=== PATIENT | female | born 1985 | race Caucasian/White ===

== ENCOUNTER 2017-11-14 02:08 | Emergency (ER) | payer SELFPAY ==
[2017-11-14] MEDS ORDERED: ONDANSETRON 4 MG/2 ML VIAL ONE ×2 (02:30→03:07)
[2017-11-14] MEDS ORDERED: NA CHLORIDE 0.9% 1,000 ML ONE (03:06)
[2017-11-14] MEDS ORDERED: MORPHINE 4 MG/ML SYR ONE (03:14)
[2017-11-14 03:36] LABS: Absolute Lymphocytes (CBC) 2.4 K/uL (0.7-4.9); Absolute Monocytes 1.1 K/uL (0.1-1.3); Absolute Neutrophil 16.9 K/uL (1.8-8.0); Basophils % 0.4 % (0-1.3); Eosinophils % 1.4 % (0-4.4); Hematocrit 36.2 % (36.0-45.0); Lymphocytes % 11.8 % (15.3-44.8); MCH 20.4 pg (27.0-35.0); MPV 8.3 fL (7.6-11.3); Monocytes % 5.3 % (3.3-12.3); RBC Red Blood Cell Count 5.65 M/uL (3.86-4.86)
[2017-11-14 03:46] LABS: Albumin 4.5 g/dL (3.4-5.0); Bilirubin Total 0.4 mg/dL (0.2-1.0); Protein, Total 7.9 g/dL (6.4-8.2)
[2017-11-14 03:54] LABS: Urine Blood NEGATIVE (NEG); Urine Glucose NEGATIVE (NEG); Urine Protein TRACE (NEG); Urine Specific Gravity 1.025 (1.005-1.030)
[2017-11-14] MEDS ORDERED: PROMETHAZINE 25 MG/ML VIAL ONE (04:21)
[2017-11-14 05:20] LABS: Blood Morphology Comment NOTED (NOT SEEN); Hypochromasia 2+; Platelet Estimate ADEQ
--- NOTE | 2017-11-14 05:38 | ER ---
Nurse's Notes [facility] Name: Mari Chicas Age: 32 yrs Sex: Female : 1985 Arrival Date: 11/14/2017 Time: 02:09 Bed 8 Private MD: Diagnosis: Nausea with vomiting, unspecified Presentation: 11/14 02:31 Presenting complaint: Patient states: Nausea and vomiting started about 2 hours ago tl2 with lower back pain that comes in waves. Transition of care: patient was not received from another setting of care. Onset of symptoms was November 14, 2017 at 00:00. Risk Assessment: Do you want to hurt yourself or someone else? Patient reports no desire to harm self or others. Initial Sepsis Screen: Does the patient meet any 2 criteria? No. Patient's initial sepsis screen is negative. Does the patient have a suspected source of infection? No. Patient's initial sepsis screen is negative. Care prior to arrival: None. 02:31 Method Of Arrival: Ambulatory tl2 02:31 Acuity: FILI 3 tl2 Triage Assessment: 02:33 General: Appears in no apparent distress. uncomfortable, Behavior is calm, cooperative, tl2 appropriate for age. Pain: Complains of pain in left low back and right low back. Neuro: Level of Consciousness is awake, alert, obeys commands, Oriented to person, place, time, situation. Cardiovascular: Denies chest pain. Respiratory: Airway is patent Respiratory effort is even, unlabored, Respiratory pattern is regular, symmetrical. GI: Abdomen is flat, non-distended, Abd is soft and non tender Reports nausea, vomiting. : Denies burning with urination. Derm: Skin is pink, warm \T\ dry. Historical: - Allergies: 02:33 Codeine; tl2 - Home Meds: 02:33 None [Active]; tl2 - PMHx: 02:33 None; tl2 - Immunization history:: Adult Immunizations up to date. - Social history:: Smoking status: Patient uses tobacco products, smokes one-half pack cigarettes per day. - Ebola Screening: : No symptoms or risks identified at this time. Screenin:34 Abuse screen: Denies threats or abuse. Nutritional screening: No deficits noted. tl2 Tuberculosis screening: No symptoms or risk factors identified. Fall Risk None identified. Assessment: 02:35 General: see triage assessment. tl2 03:16 Reassessment: Patient appears in no apparent distress at this time. Patient and/or tl2 family updated on plan of care and expected duration. Pain level reassessed. Patient is alert, oriented x 3, equal unlabored respirations, skin warm/dry/pink. Pt resting, awaiting CT. 04:15 Reassessment: Patient appears in no apparent distress at this time. Patient and/or tl2 family updated on plan of care and expected duration. Pain level reassessed. Patient is alert, oriented x 3, equal unlabored respirations, skin warm/dry/pink. 04:17 Reassessment: Pt continues to have nausea. Discussed with Dr Boss. Pt to get fc Phenergan 25 mg ivp. 04:17 GI: Pt is actively vomiting MD notified, new orders see JUL. tl2 04:58 Reassessment: Patient appears in no apparent distress at this time. Patient and/or tl2 family updated on plan of care and expected duration. Pain level reassessed. Patient is alert, oriented x 3, equal unlabored respirations, skin warm/dry/pink. Patient states feeling better. 05:53 Reassessment: Patient appears in no apparent distress at this time. Patient and/or tl2 family updated on plan of care and expected duration. Pain level reassessed. Patient is alert, oriented x 3, equal unlabored respirations, skin warm/dry/pink. Pt verbalized understanding of discharge instructions, need for follow up and prescription usage Patient states feeling better. Vital Signs: 02:33 BP 123 / 80; Pulse 104; Resp 18; Temp 98.3(O); Pulse Ox 98% on R/A; Weight 72.57 kg; tl2 Height 5 ft. 6 in. (167.64 cm); Pain 7/10; 03:16 BP 119 / 58; Pulse 72; Resp 18; Pulse Ox 99% ; tl2 04:15 Pulse 88; Resp 18; Pulse Ox 100% on R/A; tl2 04:58 BP 117 / 73; Pulse 60; Resp 18; Pulse Ox 99% on R/A; tl2 05:53 BP 121 / 73; Pulse 64; Resp 20; Pulse Ox 99% on R/A; tl2 02:33 Body Mass Index 25.82 (72.57 kg, 167.64 cm) tl2 ED Course: 02:09 Patient arrived in ED. ds1 02:31 Tracy Menjivar, JESSIE is Primary Nurse. tl2 02:31 Initial lab(s) drawn, by me. Inserted saline lock: 20 gauge in left antecubital area, aa1 using aseptic technique. Blood collected. 02:32 Triage completed. tl2 02:33 Arm band placed on right wrist. tl2 02:34 Patient has correct armband on for positive identification. Bed in low position. Call tl2 light in reach. Side rails up X 1. 02:42 Jayden Boss MD is Attending Physician. ps1 03:[address] via wheelchair. kw1 03:26 CT completed. Patient tolerated procedure well. Patient moved back from CT. kw1 03:30 CT Abd/Pelvis - Without Cont In Process Unspecified. EDMS 05:53 No provider procedures requiring assistance completed. IV discontinued, intact, tl2 bleeding controlled, No redness/swelling at site. Pressure dressing applied. Administered Medications: 02:35 Drug: Zofran 4 mg Route: IVP; Site: left antecubital; tl2 03:00 Follow up: Response: No adverse reaction; Nausea is decreased tl2 03:15 Drug: NS 0.9% 1000 ml Route: IV; Rate: 1 bolus; Site: left antecubital; tl2 05:54 Follow up: IV Status: Completed infusion tl2 03:16 Drug: Zofran 4 mg Route: IVP; Site: left antecubital; tl2 03:30 Follow up: Response: No adverse reaction; Nausea is decreased tl2 03:16 Drug: morphine 4 mg Route: IVP; Site: left antecubital; tl2 03:30 Follow up: Response: No adverse reaction; Pain is decreased tl2 04:22 Drug: Phenergan 25 mg Route: IVP; Site: left antecubital; tl2 05:54 Follow up: Response: No adverse reaction; Nausea is decreased tl2 Outcome: 05:38 Discharge ordered by . ps1 05:53 Discharged to home ambulatory. tl2 05:53 Condition: stable 05:53 Discharge instructions given to patient, Instructed on discharge instructions, follow up and referral plans. medication usage, Demonstrated understanding of instructions, follow-up care, medications, Prescriptions given X 1. 05:54 Patient left the ED. tl2 14:53 Instructed on radiologist reports pyelonephritis on CT scan, I attempted to call iw patient to call in prescription for antibiotics, pt did not answer, left voice mail with call back number Signatures: Dispatcher [employer] Ratna Alves RN RN aa1 Sadie Downing RN RN Margaret King ds1 Hafsa Figueroa RN RN Tracy Menjivar RN RN tl2 Jayden Boss MD MD [facility] Leticia Pfeiffer
--- NOTE | 2017-11-14 05:38 | EDPHYS ---
Physician Documentation [facility] Name: Mari Chicas Age: 32 yrs Sex: Female : 1985 Arrival Date: 11/14/2017 Time: 02:09 Bed 8 Private MD: ED Physician Jayden Boss HPI: 11/14 05:29 This 32 yrs old Female presents to ER via Ambulatory with complaints of ps1 Vomiting, Back Pain. 05:29 The patient presents to the emergency department with nausea, vomiting, that is ps1 continuous. Onset: The symptoms/episode began/occurred yesterday. Possible causes: sick contacts. Severity of symptoms: in the emergency department the symptoms are unchanged. patient complains of bilateral flank pain. . Historical: - Allergies: 02:33 Codeine; tl2 - Home Meds: 02:33 None [Active]; tl2 - PMHx: 02:33 None; tl2 - Immunization history:: Adult Immunizations up to date. - Social history:: Smoking status: Patient uses tobacco products, smokes one-half pack cigarettes per day. - Ebola Screening: : No symptoms or risks identified at this time. ROS: 05:29 Constitutional: Negative for fever, chills, and weight loss, Eyes: Negative for injury, ps1 pain, redness, and discharge, Cardiovascular: Negative for chest pain, palpitations, and edema, Respiratory: Negative for shortness of breath, cough, wheezing, and pleuritic chest pain. 05:29 MS/Extremity: Negative for injury and deformity, Skin: Negative for injury, rash, and discoloration, Neuro: Negative for headache, weakness, numbness, tingling, and seizure. 05:29 Abdomen/GI: Positive for abdominal pain, nausea and vomiting. Exam: 05:29 Constitutional: This is a well developed, well nourished patient who is awake, alert, ps1 and in no acute distress. Head/Face: Normocephalic, atraumatic. Eyes: Pupils equal round and reactive to light, extra-ocular motions intact. Lids and lashes normal. Conjunctiva and sclera are non-icteric and not injected. Chest/axilla: Normal chest wall appearance and motion. Nontender with no deformity. No lesions are appreciated. Respiratory: Lungs have equal breath sounds bilaterally, clear to auscultation and percussion. No rales, rhonchi or wheezes noted. No increased work of breathing, no retractions or nasal flaring. Abdomen/GI: Soft, non-tender, with normal bowel sounds. No distension or tympany. No guarding or rebound. No evidence of tenderness throughout. 05:29 Skin: Warm, dry with normal turgor. Normal color with no rashes, no lesions, and no evidence of cellulitis. MS/ Extremity: Pulses equal, no cyanosis. Neurovascular intact. Full, normal range of motion. Neuro: Awake and alert, GCS 15, oriented to person, place, time, and situation. Cranial nerves II-XII grossly intact. Sensory grossly intact. 05:29 Cardiovascular: Rate: tachycardic, Rhythm: regular. Vital Signs: 02:33 BP 123 / 80; Pulse 104; Resp 18; Temp 98.3(O); Pulse Ox 98% on R/A; Weight 72.57 kg; tl2 Height 5 ft. 6 in. (167.64 cm); Pain 7/10; 03:16 BP 119 / 58; Pulse 72; Resp 18; Pulse Ox 99% ; tl2 04:15 Pulse 88; Resp 18; Pulse Ox 100% on R/A; tl2 04:58 BP 117 / 73; Pulse 60; Resp 18; Pulse Ox 99% on R/A; tl2 05:53 BP 121 / 73; Pulse 64; Resp 20; Pulse Ox 99% on R/A; tl2 02:33 Body Mass Index 25.82 (72.57 kg, 167.64 cm) tl2 MDM: 03:05 Patient medically screened. ps1 05:29 Data reviewed: vital signs, nurses notes. Special discussion: Based on the patient's ps1 Hx, exam, and Dx evaluation, there is no indication for emergent surgery or inpatient Tx. It is understood by the patient/guardian that if the Sx's persist or worsen they need to return immediately for re-evaluation. ED course: patient feels much better with medications. Has a leukocytosis which may be demargination. CT negative for appy or stone. Unknown etiology but possible acute gastroenteritis. Patient request to go home. Will dc with antiemetics. . 11/14 03:02 Order name: CBC with Diff; Complete Time: 05:41 ps1 11/14 03:02 Order name: CMP; Complete Time: 04:43 ps1 11/14 03:02 Order name: CT Abd/Pelvis - Without Cont; Complete Time: 14:33 ps1 11/14 03:16 Order name: Urine Dipstick--Ancillary (enter results); Complete Time: 04:43 rg2 11/14 03:16 Order name: Urine --Ancillary (enter results); Complete Time: 04:43 rg2 11/14 03:49 Order name: Manual Differential; Complete Time: 05:41 EDMS 11/14 03:02 Order name: Urine Dipstick-Ancillary (obtain specimen); Complete Time: 03:16 ps1 11/14 03:02 Order name: Urine Test (obtain specimen); Complete Time: 03:16 ps1 Administered Medications: 02:35 Drug: Zofran 4 mg Route: IVP; Site: left antecubital; tl2 03:00 Follow up: Response: No adverse reaction; Nausea is decreased tl2 03:15 Drug: NS 0.9% 1000 ml Route: IV; Rate: 1 bolus; Site: left antecubital; tl2 05:54 Follow up: IV Status: Completed infusion tl2 03:16 Drug: Zofran 4 mg Route: IVP; Site: left antecubital; tl2 03:30 Follow up: Response: No adverse reaction; Nausea is decreased tl2 03:16 Drug: morphine 4 mg Route: IVP; Site: left antecubital; tl2 03:30 Follow up: Response: No adverse reaction; Pain is decreased tl2 04:22 Drug: Phenergan 25 mg Route: IVP; Site: left antecubital; tl2 05:54 Follow up: Response: No adverse reaction; Nausea is decreased tl2 Disposition: 11/14/17 05:38 Discharged to Home. Impression: Nausea with vomiting, unspecified. - Condition is Stable. - Discharge Instructions: Nausea and Vomiting. - Prescriptions for promethazine 25 mg Oral Tablet - take 1 tablet by ORAL route every 6 hours As needed; 20 tablet. - Medication Reconciliation Form, Thank You Letter, Antibiotic Education, Prescription Opioid Use form. - Follow up: Private Physician; When: As needed; Reason: Recheck today's complaints, Continuance of care, Re-evaluation by your physician. Follow up: Emergency Department; When: As needed; Reason: Worsening of condition. - Problem is new. - Symptoms have improved. Signatures: Dispatcher [employer] EDMS Keri Adkins, ADULT BASIC EDUCATION INSTRUCTOR-C ADULT BASIC EDUCATION INSTRUCTOR-Csnw Sadie Downing RN RN fc Tracy Menjivar RN RN tl2 Jayden Boss MD MD ps1 Corrections: (The following items were deleted from the chart) 05:54 05:38 11/14/2017 05:38 Discharged to Home. Impression: Nausea with vomiting, tl2 unspecified. Condition is Stable. Forms are Medication Reconciliation Form, Thank You Letter, Antibiotic Education, Prescription Opioid Use. Follow up: Private Physician; When: As needed; Reason: Recheck today's complaints, Continuance of care, Re-evaluation by your physician. Follow up: Emergency Department; When: As needed; Reason: Worsening of condition. Problem is new. Symptoms have improved. ps1
[2017-11-14 08:43] VITALS: TEMP 98.3
[2017-11-14 08:46] VITALS: O2SAT 99
[2017-11-14 08:47] VITALS: BP 121/73
--- NOTE | 2017-11-14 09:55 | RAD REPORT ---
EXAM DESCRIPTION: CT - Abdomen Pelvis Wo Contrast - 11/14/2017 7:06 am CLINICAL HISTORY: Abdominal and flank pain, nausea and vomiting A preliminary written report was provided at the time of the study, and the report was reviewed prio r to final dictation. COMPARISON: CT study June 2014 TECHNIQUE: Axial [address] imaging of the abdomen and pelvis was performed without IV contrast. No IV contrast was given because of allergy, abnormal renal function, patient refusal or physician re quest. Oral contrast was given. All CT scans are performed using dose optimization technique as appropriate and may include automated exposure control or mA/KV adjustment according to patient size. FINDINGS: No suspicious findings in the lung bases. The liver, spleen and pancreas show no suspicious findings on non-contrast imaging. Gallbladder and b iliary tree are also without suspicious finding. Gallstones can be occult. No hydronephrosis. No obstructing or nonobstructing calculi. No significant adrenal finding. Isodens e renal masses and pyelonephritis cannot be excluded in the absence of IV contrast. There is some sub tle edema appearance to the right kidney. Contracted urinary bladder shows no suspicious finding. Sandra brian and ovaries within normal limits for patient age. No dilated bowel loops or bowel wall thickening. No free air, free fluid or inflammatory stranding. N o mass or bulky lymphadenopathy. A very small umbilical hernia is present stable from prior imaging. No mass or bulky lymphadenopathy. No suspicious bony findings. IMPRESSION: Non-contrast enhanced CT abdomen and pelvis imaging show no significant or suspicious fi nding. Subtle edema appearance to the right kidney. Correlation is needed with any clinical or laboratory fi ndings for right-sided pyelonephritis. Full assessment is limited is the absence of IV contrast.
== END 2017-11-14 05:54 | disposition home or self-care (01) ==
LOC: ER 02:08
DX: R11.2 Nausea with vomiting, unspecified (principal); F17.210 Nicotine dependence, cigarettes, uncomplicated; Z88.5 Allergy status to narcotic agent
CPT/HCPCS: 36415; 74176; 80053; 81003; 81025; 85025; 96361; 96374; 96375; 99284; J2405; J2550; J7030

== ENCOUNTER 2018-02-02 20:54 | Emergency (ER) | payer SELFPAY ==
[2018-02-02] MEDS ORDERED: AMOX/K CLAV 875 MG TAB ONE (21:29)
--- NOTE | 2018-02-02 21:57 | ER ---
Nurse's Notes [facility] Name: Mari Chicas Age: 32 yrs Sex: Female : 1985 Arrival Date: 02/02/2018 Time: 20:58 Bed 26 Private MD: Diagnosis: Periapical abscess without sinus Presentation: 02/02 21:14 Presenting complaint: Patient states: right Jaw pain. Transition of care: patient was tl3 not received from another setting of care. Onset of symptoms was February 02, 2018. Risk Assessment: Do you want to hurt yourself or someone else? Patient reports no desire to harm self or others. Initial Sepsis Screen: Does the patient meet any 2 criteria? No. Patient's initial sepsis screen is negative. Does the patient have a suspected source of infection? No. Patient's initial sepsis screen is negative. Care prior to arrival: None. 21:14 Method Of Arrival: Ambulatory tl3 21:14 Acuity: FILI 4 tl3 Triage Assessment: 21:15 General: Appears distressed, uncomfortable, slender, well groomed, well developed, well tl3 nourished, Behavior is calm, cooperative, appropriate for age. Pain: Complains of pain in lower right second molar (#31) and lower right first molar (#30) and lower right second bicuspid (#29). EENT: No signs and/or symptoms were reported regarding the EENT system. Neuro: Level of Consciousness is awake, alert, obeys commands, Oriented to person, place, time, situation, Appropriate for age. Cardiovascular: Patient's skin is warm and dry. Respiratory: Airway is patent Respiratory effort is even, unlabored, Respiratory pattern is regular, symmetrical. GI: No signs and/or symptoms were reported involving the gastrointestinal system. : No signs and/or symptoms were reported regarding the genitourinary system. Derm: No signs and/or symptoms reported regarding the dermatologic system. Musculoskeletal: No signs and/or symptoms reported regarding the musculoskeletal system. 21:21 EENT: Reports pain since earlier today. 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 - Social history:: Smoking status: unknown. - Ebola Screening: : No symptoms or risks identified at this time. Screenin:20 Abuse screen: Denies threats or abuse. Nutritional screening: No deficits noted. tl3 Tuberculosis screening: No symptoms or risk factors identified. Fall Risk None identified. Assessment: 21:20 Reassessment: No changes from previously documented assessment. tl3 Vital Signs: 21:15 BP 111 / 66; Pulse 91; Resp 16; Pulse Ox 98% ; tl3 ED Course: 20:58 Patient arrived in ED. es 21:09 Jayne Taveras FNP-C is [facility]. kb 21:09 Edilberto Huston MD is Attending Physician. kb 21:10 Isiah Browne, RN is Primary Nurse. bp 21:15 Triage completed. tl3 21:15 Arm band placed on right wrist. tl3 21:20 Patient has correct armband on for positive identification. tl3 21:20 No provider procedures requiring assistance completed. Patient did not have IV access tl3 during this emergency room visit. Administered Medications: 21:22 Drug: Augmentin 875 mg Route: PO; tl3 21:25 Follow up: Response: Medication administered at discharge. tl3 Outcome: 21:15 Discharge ordered by . kb 21:20 Discharged to home ambulatory. tl3 21:20 Condition: stable 21:20 Discharge instructions given to patient, Instructed on discharge instructions, follow up and referral plans. medication usage, Demonstrated understanding of instructions, follow-up care, medications. 21:25 Patient left the ED. tl3 Signatures: Jayne Taveras FNP-C FNP-Peggy Melissa Isiah Browne, RN RN Paulina Maldonado, JESSIE RN tl3
--- NOTE | 2018-02-02 21:57 | EDPHYS ---
Physician Documentation [facility] Name: Mari Chicas Age: 32 yrs Sex: Female : 1985 Arrival Date: 02/02/2018 Time: 20:58 Bed 26 Private MD: ED Physician Edilberto Huston HPI: 02/02 21:14 This 32 yrs old Female presents to ER via Unassigned with complaints of kb Toothache. 21:14 The patient presents with pain, redness, swelling. The problem is located in the lower kb right second molar (#31) and lower right first molar (#30) and lower right second bicuspid (#29). Onset: The symptoms/episode began/occurred this morning. Duration: The symptoms are continuous. Modifying factors: The symptoms are alleviated by prescription meds, tramadol, the symptoms are aggravated by nothing. Associated signs and symptoms: Pertinent positives: pain, redness in area, swelling, Pertinent negatives: anorexia, chills, dysphagia, fever, inability to eat, nausea, vomiting. Severity of symptoms: At their worst the symptoms were moderate, in the emergency department the symptoms are unchanged. The patient has not experienced similar symptoms in the past. The patient has not recently seen a physician. 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 - Social history:: Smoking status: unknown. - Ebola Screening: : No symptoms or risks identified at this time. ROS: 21:13 Constitutional: Negative for fever, chills, and weight loss, Cardiovascular: Negative kb for chest pain, palpitations, and edema, Respiratory: Negative for shortness of breath, cough, wheezing, and pleuritic chest pain, Abdomen/GI: Negative for abdominal pain, nausea, vomiting, diarrhea, and constipation, MS/Extremity: Negative for injury and deformity, Skin: Negative for injury, rash, and discoloration, Neuro: Negative for headache, weakness, numbness, tingling, and seizure. 21:13 ENT: Positive for dental pain, Gum pain Exam: 21:13 Constitutional: This is a well developed, well nourished patient who is awake, alert, kb and in no acute distress. Head/Face: Normocephalic, atraumatic. Chest/axilla: Normal chest wall appearance and motion. Nontender with no deformity. No lesions are appreciated. Cardiovascular: Regular rate and rhythm with a normal S1 and S2. No gallops, murmurs, or rubs. Normal PMI, no JVD. No pulse deficits. Respiratory: Lungs have equal breath sounds bilaterally, clear to auscultation and percussion. No rales, rhonchi or wheezes noted. No increased work of breathing, no retractions or nasal flaring. Abdomen/GI: Soft, non-tender, with normal bowel sounds. No distension or tympany. No guarding or rebound. No evidence of tenderness throughout. Skin: Warm, dry with normal turgor. Normal color with no rashes, no lesions, and no evidence of cellulitis. MS/ Extremity: Pulses equal, no cyanosis. Neurovascular intact. Full, normal range of motion. Neuro: Awake and alert, GCS 15, oriented to person, place, time, and situation. Cranial nerves II-XII grossly intact. Motor strength 5/5 in all extremities. Sensory grossly intact. Cerebellar exam normal. Normal gait. 21:13 ENT: Dental exam: gum swelling, that is moderate, specifically in the lower right second bicuspid (#29), lower right first molar (#30) and lower right second molar (#31), pain, that is mild, that is moderate, specifically in the lower right second bicuspid (#29), lower right first molar (#30) and lower right second molar (#31). Vital Signs: 21:15 BP 111 / 66; Pulse 91; Resp 16; Pulse Ox 98% ; tl3 MDM: 21:09 Patient medically screened. kb 21:12 Data reviewed: vital signs, nurses notes. Data interpreted: Pulse oximetry: on room air kb is 100 %. Interpretation: normal. Counseling: I had a detailed discussion with the patient and/or guardian regarding: the historical points, exam findings, and any diagnostic results supporting the discharge/admit diagnosis, the need for outpatient follow up, a dentist, to return to the emergency department if symptoms worsen or persist or if there are any questions or concerns that arise at home. Administered Medications: 21:22 Drug: Augmentin 875 mg Route: PO; tl3 21:25 Follow up: Response: Medication administered at discharge. tl3 Disposition: 02/03 06:48 Co-signature as Attending Physician, Edilberto Huston MD I agree with the assessment and [facility] plan of care. Chart complete. Disposition: 02/02/18 21:15 Discharged to Home. Impression: Periapical abscess without sinus. - Condition is Stable. - Discharge Instructions: Dental Pain, [id number], Dental Abscess, [id number]. - Prescriptions for Augmentin 875- 125 mg Oral Tablet - take 1 tablet by ORAL route every 12 hours for 10 days; 20 tablet. Tramadol 50 mg Oral Tablet - take 1 tablet by ORAL route every 8 hours as needed; 12 tablet. - Medication Reconciliation Form, Thank You Letter, Antibiotic Education, Prescription Opioid Use form. - Follow up: Emergency Department; When: As needed; Reason: Worsening of condition. Follow up: Private Physician; When: 2 - 3 days; Reason: Recheck today's complaints, Continuance of care, Re-evaluation by your physician. Signatures: Jayne Taveras, FENCE MAKER-C FENCE MAKER-Edilberto Belcher MD MD cha Lowrey, Tammy, RN RN tl3 Corrections: (The following items were deleted from the chart) 02/02 21:25 21:15 02/02/2018 21:15 Discharged to Home. Impression: Periapical abscess without tl3 sinus. Condition is Stable. Forms are Medication Reconciliation Form, Thank You Letter, Antibiotic Education, Prescription Opioid Use. Follow up: Emergency Department; When: As needed; Reason: Worsening of condition. Follow up: Private Physician; When: 2 - 3 days; Reason: Recheck today's complaints, Continuance of care, Re-evaluation by your physician. kb
[2018-02-02 22:38] VITALS: BP 111/66; O2SAT 98
== END 2018-02-02 21:25 | disposition home or self-care (01) ==
LOC: ER 20:54
DX: K04.7 Periapical abscess without sinus (principal); Z88.5 Allergy status to narcotic agent
CPT/HCPCS: 99282

== ENCOUNTER 2018-05-19 08:53 | Emergency (ER) | payer SELFPAY ==
[2018-05-19] MEDS ORDERED: NA CHLORIDE 0.9% 1,000 ML ONE (09:30)
[2018-05-19] MEDS ORDERED: PROMETHAZINE 25 MG/ML VIAL ONE (09:30)
[2018-05-19] MEDS ORDERED: ONDANSETRON 4 MG/2 ML VIAL ONE (09:30)
[2018-05-19 09:44] LABS: Absolute Lymphocytes (CBC) 1.4 K/uL (0.7-4.9); Absolute Monocytes 0.5 K/uL (0.1-1.3); Absolute Neutrophil 13.7 K/uL (1.8-8.0); Basophils % 0.3 % (0-1.3); Hematocrit 36.3 % (36.0-45.0); Lymphocytes % 8.7 % (15.3-44.8); MPV 7.7 fL (7.6-11.3); Monocytes % 3.1 % (3.3-12.3); RBC Red Blood Cell Count 5.64 M/uL (3.86-4.86)
[2018-05-19 09:56] LABS: Specific Gravity 1.025 (1.005-1.030)
[2018-05-19 10:04] LABS: Albumin 4.7 g/dL (3.4-5.0); Bilirubin Direct 0.2 mg/dL (0-0.2); Bilirubin Total 0.6 mg/dL (0.2-1.0); Protein, Total 8.4 g/dL (6.4-8.2)
[2018-05-19 10:11] LABS: Urine Bacteria 20-50 /HPF (<20); Urine Culture Reflex Order NOT NEEDED; Urine Mucus 2+ /HPF (NONE SEEN); Urine RBC <5 /HPF (NONE SEEN)
[2018-05-19 10:20] LABS: Platelet Estimate INCR; Urine White Blood Cell Casts OK
[2018-05-19 10:21] LABS: Anisocytosis SLIGHT; Basophilic Stippling 1+; Blood Morphology Comment NOTED (NOT SEEN); Hypochromasia 1+
[2018-05-19 10:22] LABS: Target Cells 1+
[2018-05-19 10:35] LABS: Urine Blood NEGATIVE (NEG); Urine Glucose NEGATIVE (NEG); Urine Protein 2+ (NEG); Urine Specific Gravity 1.015 (1.005-1.030); Urine pH >8.5 (5.0-7.0)
--- NOTE | 2018-05-19 10:41 | RAD REPORT ---
EXAM DESCRIPTION: CTAbdomen Pelvis W Contrast - 05/19/2018 10:32 am CLINICAL HISTORY: Abdominal pain. ABD PAIN COMPARISON: CT ABD PELVIS W CONTRAST dated 07/17/2014; CT ABD PELVIS W CONTRAST dated 07/16/2014; Abdo men Pelvis Wo Contrast dated 11/14/2017 TECHNIQUE: Biphasic CT imaging of the abdomen and pelvis was performed with 100 ml non-ionic IV cont rast. All CT scans are performed using dose optimization technique as appropriate and may include automated exposure control or mA/KV adjustment according to patient size. FINDINGS: The lung bases are clear. The liver, spleen, pancreas, adrenal glands and kidneys are within normal limits. No bowel obstruction, free air, free fluid or abscess. Small fat containing umbilical hernia. The sukhdev endix is normal. No evidence of significant lymphadenopathy. No suspicious bony findings. IMPRESSION: No acute intra-abdominal or pelvic finding.
[2018-05-19] MEDS ORDERED: CEFTRIAXONE/SWI 1gm 1 GM/10 ML SYR ONE (11:04)
[2018-05-19] MEDS ORDERED: KETOROLAC 30 MG/ML INJ ONE (11:04)
--- NOTE | 2018-05-19 11:16 | ER ---
Nurse's Notes [facility] Name: Mari Chicas Age: 33 yrs Sex: Female : 1985 Arrival Date: 05/19/2018 Time: 08:55 Bed 16 Private MD: Diagnosis: Vomiting;Urinary tract infection, site not specified;Upper abdominal pain, unspecified Presentation: 05/19 09:06 Presenting complaint: Patient states: N/V and upper abdominal cramping 03/02 since last hb night. Not tolerating liquids. Denies fever. Transition of care: patient was not received from another setting of care. Onset of symptoms was May 18, 2018. Risk Assessment: Do you want to hurt yourself or someone else? Patient reports no desire to harm self or others. Care prior to arrival: None. 09:06 Method Of Arrival: Ambulatory 09:06 Acuity: FILI 3 hb 10:02 Initial Sepsis Screen: Does the patient meet any 2 criteria? No. Patient's initial ph sepsis screen is negative. Does the patient have a suspected source of infection? No. Patient's initial sepsis screen is negative. 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 - Social history:: Smoking status: Patient uses tobacco products, smokes one-half pack cigarettes per day. - Ebola Screening: : No symptoms or risks identified at this time. Screenin:07 Abuse screen: Denies threats or abuse. Denies injuries from another. Nutritional hb screening: No deficits noted. Tuberculosis screening: No symptoms or risk factors identified. Fall Risk None identified. Assessment: 09:30 General: Appears in no apparent distress. uncomfortable, slender, Behavior is calm, ph cooperative, appropriate for age. Pain: Complains of pain in epigastric area, right upper quadrant and left upper quadrant. Neuro: Level of Consciousness is awake, alert, obeys commands, Oriented to person, place, time, situation. Cardiovascular: Capillary refill < 3 seconds in bilateral fingers Patient's skin is warm and dry. Respiratory: Airway is patent Respiratory effort is even, unlabored. GI: Abdomen is flat, non-distended, Bowel sounds present X 4 quads. Abd is soft and non tender X 4 quads. Reports upper abdominal pain, diarrhea, nausea, vomiting, since midnight. Derm: Skin is intact, is healthy with good turgor, Skin is pink, warm \T\ dry. Musculoskeletal: Circulation, motion, and sensation intact. Range of motion: intact in all extremities. 10:30 General: Appears in no apparent distress. uncomfortable, Behavior is calm, cooperative, aj1 appropriate for age. Pain: Complains of pain in abdomen diffusely Quality of pain is described as crampy. Neuro: Level of Consciousness is awake, alert, obeys commands. Cardiovascular: Patient's skin is warm and dry. Respiratory: Airway is patent Respiratory effort is even, unlabored. GI: Abdomen is flat, non-distended, Reports lower abdominal pain, upper abdominal pain, diarrhea, nausea, vomiting. : No signs and/or symptoms were reported regarding the genitourinary system. EENT: No signs and/or symptoms were reported regarding the EENT system. Derm: Skin is pink, warm \T\ dry. normal. Musculoskeletal: No signs and/or symptoms reported regarding the musculoskeletal system. Circulation, motion, and sensation intact. 11:24 Reassessment: Patient appears in no apparent distress at this time. No changes from aj1 previously documented assessment. Patient and/or family updated on plan of care and expected duration. Pain level reassessed. Patient is alert, oriented x 3, equal unlabored respirations, skin warm/dry/pink. Vital Signs: 09:05 BP 129 / 72; Pulse 88; Resp 16; Temp 98.2; Pulse Ox 100% on R/A; Pain 10/10; hb 10:30 BP 110 / 73; Pulse 85; Resp 16; Pulse Ox 100% on R/A; aj1 11:24 BP 112 / 65; Pulse 82; Resp 16; Pulse Ox 99% on R/A; aj1 ED Course: 08:55 Patient arrived in ED. mr 08:59 Keri Adkins FNP-C is [facility]. snw 09:00 Larry Bustos MD is Attending Physician. snw 09:06 Triage completed. hb 09:07 Arm band placed on. hb 09:30 Inserted saline lock: 20 gauge in left antecubital area, using aseptic technique. Blood ph collected. 10:02 Patient has correct armband on for positive identification. Bed in low position. Call ph light in reach. Side rails up X 1. Pulse ox on. NIBP on. Warm blanket given. 10:14 Urine Dipstick--Ancillary (enter results) Sent. ag 10:15 Urine Culture Sent. ag 10:32 CT Abd/Pelvis - W/Contrast In Process Unspecified. EDMS 10:46 Bethany Prasad, RN is Primary Nurse. aj1 11:42 No provider procedures requiring assistance completed. IV discontinued, intact, aj1 bleeding controlled, No redness/swelling at site. Pressure dressing applied. Administered Medications: 09:35 Drug: NS 0.9% 1000 ml Route: IV; Rate: 1 bolus; Site: left antecubital; ph 11:00 Follow up: IV Status: Completed infusion; IV Intake: 1000ml aj1 09:35 Drug: Phenergan 12.5 mg Route: IVP; Site: left antecubital; ph 10:00 Follow up: Response: No adverse reaction aj1 09:35 Drug: Zofran 4 mg Route: IVP; Site: left antecubital; ph 10:00 Follow up: Response: No adverse reaction aj1 11:03 Drug: Rocephin - (cefTRIAXone) 1 grams Route: IVPB; Infused Over: 30 mins; Site: left aj1 antecubital; 11:44 Follow up: IV Status: Completed infusion aj1 11:03 Drug: TORadol 30 mg Route: IVP; Site: left antecubital; aj1 11:44 Follow up: Response: No adverse reaction aj1 Intake: 11:00 IV: 1000ml; Total: 1000ml. aj1 Outcome: 11:15 Discharge ordered by . deandre 11:42 Discharged to home ambulatory. aj1 11:42 Condition: good 11:42 Discharge instructions given to patient, Instructed on discharge instructions, follow up and referral plans. medication usage, Demonstrated understanding of instructions, follow-up care, medications, Prescriptions given X 2. 11:45 Patient left the ED. aj1 Signatures: Dispatcher [employer] EDWV Bethany Prasad, JESSIE RN aj1 Keri Adkins, ROUND UP RING HAND-C ROUND UP RING HAND-Csnw CagleSelena robert, Clarissa Bishop, RN RN ph Essence Marley, RN RN hb
--- NOTE | 2018-05-19 11:16 | EDPHYS ---
Physician Documentation [facility] Name: Mari Chicas Age: 33 yrs Sex: Female : 1985 Arrival Date: 05/19/2018 Time: 08:55 Bed 16 Private MD: ED Physician Larry Bustos HPI: 05/19 09:24 This 33 yrs old Female presents to ER via Ambulatory with complaints of snw Abdominal Pain, Vomiting. 09:24 The patient presents with abdominal pain in the epigastric area, in the upper abdomen. snw Onset: The symptoms/episode began/occurred suddenly, last night. The symptoms do not radiate. Associated signs and symptoms: Pertinent positives: nausea and vomiting. The symptoms are described as constant. Severity of pain: At its worst the pain was moderate severe. The patient has not experienced similar symptoms in the past. The patient has not recently seen a physician. 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 - Social history:: Smoking status: Patient uses tobacco products, smokes one-half pack cigarettes per day. - Ebola Screening: : No symptoms or risks identified at this time. ROS: 09:23 Constitutional: Negative for fever, chills, and weight loss, Eyes: Negative for injury, snw pain, redness, and discharge, ENT: Negative for injury, pain, and discharge, Neck: Negative for injury, pain, and swelling, Cardiovascular: Negative for chest pain, palpitations, and edema, Respiratory: Negative for shortness of breath, cough, wheezing, and pleuritic chest pain, Back: Negative for injury and pain, : Negative for injury, bleeding, discharge, and swelling, MS/Extremity: Negative for injury and deformity, Skin: Negative for injury, rash, and discoloration, Neuro: Negative for headache, weakness, numbness, tingling, and seizure. 09:23 Abdomen/GI: Positive for abdominal pain, nausea and vomiting, Negative for diarrhea, constipation, fever. Exam: 09:20 Head/Face: Normocephalic, atraumatic. Eyes: Pupils equal round and reactive to light, snw extra-ocular motions intact. Lids and lashes normal. Conjunctiva and sclera are non-icteric and not injected. Cornea within normal limits. Periorbital areas with no swelling, redness, or edema. ENT: Nares patent. No nasal discharge, no septal abnormalities noted. Tympanic membranes are normal and external auditory canals are clear. Oropharynx with no redness, swelling, or masses, exudates, or evidence of obstruction, uvula midline. Mucous membranes moist. Neck: Trachea midline, no thyromegaly or masses palpated, and no cervical lymphadenopathy. Supple, full range of motion without nuchal rigidity, or vertebral point tenderness. No Meningismus. Chest/axilla: Normal chest wall appearance and motion. Nontender with no deformity. No lesions are appreciated. Cardiovascular: Regular rate and rhythm with a normal S1 and S2. No gallops, murmurs, or rubs. Normal PMI, no JVD. No pulse deficits. Respiratory: Lungs have equal breath sounds bilaterally, clear to auscultation and percussion. No rales, rhonchi or wheezes noted. No increased work of breathing, no retractions or nasal flaring. Back: No spinal tenderness. No costovertebral tenderness. Full range of motion. Skin: Warm, dry with normal turgor. Normal color with no rashes, no lesions, and no evidence of cellulitis. MS/ Extremity: Pulses equal, no cyanosis. Neurovascular intact. Full, normal range of motion. Neuro: Awake and alert, GCS 15, oriented to person, place, time, and situation. Cranial nerves II-XII grossly intact. Motor strength 5/5 in all extremities. Sensory grossly intact. Cerebellar exam normal. Normal gait. 09:20 Constitutional: The patient appears alert, awake, anxious. 09:20 Abdomen/GI: Inspection: abdomen appears normal, Bowel sounds: normal, Palpation: mild abdominal tenderness, moderate abdominal tenderness, in the epigastric area, umbilical area, right upper quadrant and left upper quadrant. Vital Signs: 09:05 BP 129 / 72; Pulse 88; Resp 16; Temp 98.2; Pulse Ox 100% on R/A; Pain 10/10; hb 10:30 BP 110 / 73; Pulse 85; Resp 16; Pulse Ox 100% on R/A; aj1 11:24 BP 112 / 65; Pulse 82; Resp 16; Pulse Ox 99% on R/A; aj1 MDM: 09:00 Patient medically screened. snw 11:17 Data reviewed: vital signs, nurses notes. Data interpreted: Pulse oximetry: on room air snw is 100 %. Interpretation: normal. Counseling: I had a detailed discussion with the patient and/or guardian regarding: the historical points, exam findings, and any diagnostic results supporting the discharge/admit diagnosis, lab results, radiology results, the need for outpatient follow up, to return to the emergency department if symptoms worsen or persist or if there are any questions or concerns that arise at home. Response to treatment: the patient's symptoms have markedly improved after treatment. Special discussion: Based on the patient's Hx, exam, and Dx evaluation, there is no indication for emergent surgery or inpatient Tx. It is understood by the patient/guardian that if the Sx's persist or worsen they need to return immediately for re-evaluation. Based on the history and exam findings, there is no indication for further emergent testing or inpatient evaluation. I discussed with the patient/guardian the need to see the primary care provider for further evaluation of the symptoms. 05/19 09:08 Order name: Basic Metabolic Panel; Complete Time: 10:08 snw 05/19 09:08 Order name: CBC with Diff; Complete Time: 10:25 snw 05/19 09:08 Order name: Hepatic Function; Complete Time: 10:08 snw 05/19 09:08 Order name: Lipase; Complete Time: 10:08 snw 05/19 09:08 Order name: Urine Culture snw 05/19 09:08 Order name: Urine Microscopic Only; Complete Time: 10:11 snw 05/19 09:47 Order name: CBC Smear Scan; Complete Time: 10:25 EDMS 05/19 09:51 Order name: Test, Urine; Complete Time: 10:11 EDMS 05/19 10:10 Order name: CT Abd/Pelvis - W/Contrast; Complete Time: 10:41 snw 05/19 10:13 Order name: Urine Dipstick--Ancillary (enter results); Complete Time: 10:36 bd 05/19 09:08 Order name: IV Saline Lock; Complete Time: 09:59 snw 05/19 09:08 Order name: Labs collected and sent; Complete Time: 09:59 snw 05/19 09:08 Order name: Urine Test (obtain specimen); Complete Time: 09:59 snw 05/19 09:08 Order name: Urine Dipstick-Ancillary (obtain specimen); Complete Time: 09:59 snw Administered Medications: 09:35 Drug: NS 0.9% 1000 ml Route: IV; Rate: 1 bolus; Site: left antecubital; ph 11:00 Follow up: IV Status: Completed infusion; IV Intake: 1000ml aj1 09:35 Drug: Phenergan 12.5 mg Route: IVP; Site: left antecubital; ph 10:00 Follow up: Response: No adverse reaction aj1 09:35 Drug: Zofran 4 mg Route: IVP; Site: left antecubital; ph 10:00 Follow up: Response: No adverse reaction aj1 11:03 Drug: Rocephin - (cefTRIAXone) 1 grams Route: IVPB; Infused Over: 30 mins; Site: left aj antecubital; 11:44 Follow up: IV Status: Completed infusion aj1 11:03 Drug: TORadol 30 mg Route: IVP; Site: left antecubital; aj1 11:44 Follow up: Response: No adverse reaction aj1 Disposition: 05/19/18 11:15 Discharged to Home. Impression: Vomiting, Urinary tract infection, site not specified, Upper abdominal pain, unspecified. - Condition is Stable. - Discharge Instructions: Abdominal Pain, Adult, Nausea and Vomiting, Adult, Urinary Tract Infection, Adult, Rehydration, Adult. - Prescriptions for Doxycycline Hyclate 100 mg Oral Tablet - take 1 tablet by ORAL route every 12 hours; 20 tablet. promethazine 25 mg Oral Tablet - take 1 tablet by ORAL route every 6 hours As needed; 20 tablet. - Work release form, Medication Reconciliation Form, Thank You Letter, Antibiotic Education, Prescription Opioid Use form. - Follow up: Private Physician; When: 2 - 3 days; Reason: Recheck today's complaints, Continuance of care, Re-evaluation by your physician. Follow up: Emergency Department; When: As needed; Reason: Worsening of condition. Addendum: 05/21/2018 15:25 Co-signature as Attending Physician, Larry encarnacion a2 Signatures: Dispatcher [employer] Bethany Haynes, RN RN aj1 Keri Adkins, OUTREACH AND EDUCATION SOCIAL WORKER-C OUTREACH AND EDUCATION SOCIAL WORKER-Csnw Clarissa Cook RN RN Essence Marley, RN RN Larry Bustos MD MD ma2 Corrections: (The following items were deleted from the chart) 05/19 10:13 10:09 Stone Protocol+CT.RAD.BRZ ordered. [facility] 11:45 11:15 05/19/2018 11:15 Discharged to Home. Impression: Vomiting; Urinary tract aj1 infection, site not specified; Upper abdominal pain, unspecified. Condition is Stable. Forms are Medication Reconciliation Form, Thank You Letter, Antibiotic Education, Prescription Opioid Use. Follow up: Private Physician; When: 2 - 3 days; Reason: Recheck today's complaints, Continuance of care, Re-evaluation by your physician. Follow up: Emergency Department; When: As needed; Reason: Worsening of condition. snw
[2018-05-19 12:11] VITALS: TEMP 98.2
[2018-05-19 12:13] VITALS: BP 112/65; O2SAT 99
== END 2018-05-19 11:45 | disposition home or self-care (01) ==
LOC: ER 08:53
DX: N39.0 Urinary tract infection, site not specified (principal); R11.10 Vomiting, unspecified; F17.210 Nicotine dependence, cigarettes, uncomplicated; Z88.5 Allergy status to narcotic agent
CPT/HCPCS: 36415; 74177; 80048; 80076; 81003; 81015; 81025; 83690; 85025; 87086; 87088; 96361; 96365; 96375; 99284; J0696; J2405; J2550; J7030; Q9967

== ENCOUNTER 2018-05-19 23:05 | Emergency (ER) | payer SELFPAY ==
[2018-05-19] MEDS ORDERED: ONDANSETRON 4 MG/2 ML VIAL ONE (23:45)
[2018-05-19] MEDS ORDERED: NA CHLORIDE 0.9% 1,000 ML ONE (23:45)
[2018-05-19] MEDS ORDERED: KETOROLAC 30 MG/ML INJ ONE (23:45)
--- NOTE | 2018-05-20 00:19 | EDPHYS ---
Physician Documentation [facility] Name: Mari Chicas Age: 33 yrs Sex: Female : 1985 Arrival Date: 05/19/2018 Time: 23:08 Bed 24 Private MD: ED Physician Virgil Loja HPI: 05/20 00:00 This 33 yrs old Female presents to ER via Wheelchair with complaints of pm1 Abdominal Pain. 00:00 The patient presents with abdominal pain that is diffuse. Onset: The symptoms/episode pm1 began/occurred last night. The symptoms do not radiate. 00:00 Associated signs and symptoms: Pertinent positives: nausea and vomiting, Pertinent pm1 negatives: diarrhea, dysuria, fever. The symptoms are described as crampy. Modifying factors: The symptoms are alleviated by nothing, the symptoms are aggravated by nothing. Severity of pain: in the emergency department the pain is actually worse. The patient has been recently seen at the [facility] Emergency Department, for similar complaints labs were performed, CT scan was performed, was given a prescription for antibiotics, was given a prescription for an antiemetic, This AM and DX with UTI. 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 - Social history:: Smoking status: Patient uses tobacco products. - Ebola Screening: : Patient negative for fever greater than or equal to 101.5 degrees Fahrenheit, and additional compatible Ebola Virus Disease symptoms Patient denies exposure to infectious person Patient denies travel to an Ebola-affected area in the 21 days before illness onset. ROS: 05/20 00:00 Constitutional: Negative for fever, chills, and weight loss, Eyes: Negative for injury, pm1 pain, redness, and discharge, ENT: Negative for injury, pain, and discharge, Neck: Negative for injury, pain, and swelling, Cardiovascular: Negative for chest pain, palpitations, and edema, Respiratory: Negative for shortness of breath, cough, wheezing, and pleuritic chest pain. Back: Negative for injury and pain, : Negative for injury, bleeding, discharge, and swelling, MS/Extremity: Negative for injury and deformity, Skin: Negative for injury, rash, and discoloration, Neuro: Negative for headache, weakness, numbness, tingling, and seizure. Abdomen/GI: Positive for abdominal pain, nausea and vomiting, Negative for diarrhea. Exam: 00:00 Constitutional: This is a well developed, well nourished patient who is awake, alert, pm1 and in no acute distress. Head/Face: Normocephalic, atraumatic. Eyes: Pupils equal round and reactive to light, extra-ocular motions intact. Lids and lashes normal. Conjunctiva and sclera are non-icteric and not injected. Cornea within normal limits. Periorbital areas with no swelling, redness, or edema. ENT: Nares patent. No nasal discharge, no septal abnormalities noted. Tympanic membranes are normal and external auditory canals are clear. Oropharynx with no redness, swelling, or masses, exudates, or evidence of obstruction, uvula midline. Mucous membranes moist. Neck: Trachea midline, no thyromegaly or masses palpated, and no cervical lymphadenopathy. Supple, full range of motion without nuchal rigidity, or vertebral point tenderness. No Meningismus. Chest/axilla: Normal chest wall appearance and motion. Nontender with no deformity. No lesions are appreciated. Cardiovascular: Regular rate and rhythm with a normal S1 and S2. No gallops, murmurs, or rubs. Normal PMI, no JVD. No pulse deficits. Respiratory: Lungs have equal breath sounds bilaterally, clear to auscultation and percussion. No rales, rhonchi or wheezes noted. No increased work of breathing, no retractions or nasal flaring. 00:00 Back: No spinal tenderness. No costovertebral tenderness. Full range of motion. Skin: Warm, dry with normal turgor. Normal color with no rashes, no lesions, and no evidence of cellulitis. MS/ Extremity: Pulses equal, no cyanosis. Neurovascular intact. Full, normal range of motion. 00:00 Abdomen/GI: Inspection: abdomen appears normal, Bowel sounds: normal, Palpation: soft, mild abdominal tenderness, in all quadrants, mass, is not appreciated, rebound tenderness, is not appreciated. 00:00 Neuro: Orientation: is normal, Motor: is normal, Sensation: is normal, Gait: is steady, at a normal pace, without difficulty. Vital Signs: 05/19 23:15 BP 137 / 79; Pulse 85; Resp 18; Temp 97.8(O); Pulse Ox 96% on R/A; Weight 61.23 kg (R); fc Height 5 ft. 5 in. (165.10 cm) (R); Pain 10/10; 05/20 00:44 BP 101 / 60; Pulse 82; Resp 18; Pulse Ox 100% on R/A; Pain 2/10; mg2 05/19 23:15 Body Mass Index 22.46 (61.23 kg, 165.10 cm) fc MDM: 05/19 23:30 Patient medically screened. pm1 05/20 00:17 Data reviewed: vital signs. Data interpreted: Pulse oximetry: on room air is 96 %. pm1 Interpretation: normal. Counseling: I had a detailed discussion with the patient and/or guardian regarding: the historical points, exam findings, and any diagnostic results supporting the discharge/admit diagnosis, the need for outpatient follow up, to return to the emergency department if symptoms worsen or persist or if there are any questions or concerns that arise at home. Administered Medications: 05/19 23:41 Drug: Zofran 4 mg Route: IVP; Site: right forearm; mg2 05/20 00:45 Follow up: Response: No adverse reaction; Marked relief of symptoms mg2 05/19 23:42 Drug: NS 0.9% 1000 ml Route: IV; Rate: 1000 ml; Site: right forearm; mg2 05/20 00:45 Follow up: Response: No adverse reaction; IV Status: Completed infusion mg2 05/19 23:42 Drug: TORadol 30 mg Route: IVP; Site: right forearm; mg2 05/20 00:45 Follow up: Response: No adverse reaction; Marked relief of symptoms mg2 Disposition: 05:33 Co-signature as Attending Physician, Virgil Loja MD I agree with the assessment and 4 plan of care. Disposition: 05/20/18 00:18 Discharged to Home. Impression: Urinary tract infection, site not specified, Vomiting. - Condition is Stable. - Discharge Instructions: Nausea and Vomiting, Adult, Urinary Tract Infection, Adult. - Prescriptions for Zofran 4 mg Oral Tablet - take 1 tablet by ORAL route every 12 hours As needed; 20 tablet. Tramadol 50 mg Oral Tablet - take 1 tablet by ORAL route every 8 hours as needed; 12 tablet. - Medication Reconciliation Form, Thank You Letter, Antibiotic Education, Prescription Opioid Use form. - Follow up: Emergency Department; When: As needed; Reason: Worsening of condition. Follow up: Private Physician; When: 2 - 3 days; Reason: Recheck today's complaints, Continuance of care, Re-evaluation by your physician. - Problem is new. - Symptoms have improved. Signatures: Sadie Downing, RN RN fc Torsten Henderson NP [employer] pm1 Virgil Loja MD MD tw4 Akash Whitman, RN RN mg2 Corrections: (The following items were deleted from the chart) 00:19 00:18 05/20/2018 00:18 Discharged to Home. Impression: Urinary tract infection, site pm1 not specified. Condition is Stable. Forms are Medication Reconciliation Form, Thank You Letter, Antibiotic Education, Prescription Opioid Use. Follow up: Emergency Department; When: As needed; Reason: Worsening of condition. Follow up: Private Physician; When: 2 - 3 days; Reason: Recheck today's complaints, Continuance of care, Re-evaluation by your physician. Problem is new. Symptoms have improved. pm1 01:08 00:19 05/20/2018 00:18 Discharged to Home. Impression: Urinary tract infection, site mg2 not specified; Vomiting. Condition is Stable. Discharge Instructions: Nausea and Vomiting, Adult, Urinary Tract Infection, Adult. Forms are Medication Reconciliation Form, Thank You Letter, Antibiotic Education, Prescription Opioid Use. Follow up: Emergency Department; When: As needed; Reason: Worsening of condition. Follow up: Private Physician; When: 2 - 3 days; Reason: Recheck today's complaints, Continuance of care, Re-evaluation by your physician. Problem is new. Symptoms have improved. pm1
--- NOTE | 2018-05-20 00:19 | ER ---
Nurse's Notes [facility] Name: Mari Chicas Age: 33 yrs Sex: Female : 1985 Arrival Date: 05/19/2018 Time: 23:08 Bed 24 Private MD: Diagnosis: Urinary tract infection, site not specified;Vomiting Presentation: 05/19 23:15 Presenting complaint: Patient states: that she was here this am and dx with UTI. Given fc medication and felt better. Woke up tonight and started to vomit again. Medication not helping. Transition of care: patient was not received from another setting of care. Onset of symptoms was May 19, 2018. Risk Assessment: Do you want to hurt yourself or someone else? Patient reports no desire to harm self or others. Initial Sepsis Screen: Does the patient meet any 2 criteria? No. Patient's initial sepsis screen is negative. Does the patient have a suspected source of infection? No. Patient's initial sepsis screen is negative. Care prior to arrival: Medication(s) given: Phenergan, last at 2215. 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 - Social history:: Smoking status: Patient uses tobacco products. - Ebola Screening: : Patient negative for fever greater than or equal to 101.5 degrees Fahrenheit, and additional compatible Ebola Virus Disease symptoms Patient denies exposure to infectious person Patient denies travel to an Ebola-affected area in the 21 days before illness onset. Screenin:47 Abuse screen: Denies threats or abuse. Denies injuries from another. Nutritional mg2 screening: No deficits noted. Tuberculosis screening: No symptoms or risk factors identified. Fall Risk IV access (20 points). Assessment: 23:46 General: Appears in no apparent distress. uncomfortable, Behavior is crying. Pain: mg2 Complains of pain in abdomen Pain does not radiate. Pain currently is 10 out of 10 on a pain scale. Quality of pain is described as aching, Pain began gradually, 1 day ago. Neuro: Level of Consciousness is awake, alert, obeys commands, Oriented to person, place, time, situation. Cardiovascular: Capillary refill < 3 seconds Patient's skin is warm and dry. Respiratory: Airway is patent Respiratory effort is even, unlabored, Respiratory pattern is regular, symmetrical. GI: Pt is actively vomiting bile, Bowel sounds present X 4 quads. Abd is soft and non tender X 4 quads. : Reports burning with urination. EENT: No signs and/or symptoms were reported regarding the EENT system. Derm: Skin is intact, is healthy with good turgor, Skin is pink, warm \T\ dry. normal. Musculoskeletal: No signs and/or symptoms reported regarding the musculoskeletal system. 05/20 01:07 Reassessment: Patient appears in no apparent distress at this time. Patient and/or mg2 family updated on plan of care and expected duration. Pain level reassessed. Patient is alert, oriented x 3, equal unlabored respirations, skin warm/dry/pink. Vital Signs: 05/19 23:15 BP 137 / 79; Pulse 85; Resp 18; Temp 97.8(O); Pulse Ox 96% on R/A; Weight 61.23 kg (R); fc Height 5 ft. 5 in. (165.10 cm) (R); Pain 10/10; 05/20 00:44 BP 101 / 60; Pulse 82; Resp 18; Pulse Ox 100% on R/A; Pain 2/10; mg2 05/19 23:15 Body Mass Index 22.46 (61.23 kg, 165.10 cm) ED Course: 05/19 23:08 Patient arrived in ED. es 23:15 Arm band placed on Patient placed in an exam room, on a stretcher. fc 23:16 Triage completed. fc 23:23 Torsten Henderson NP is PHCP. pm1 23:23 Virgil Loja MD is Attending Physician. pm1 23:25 Inserted saline lock: 22 gauge in right antecubital area, using aseptic technique. ea 23:33 Akash Whitman, JESSIE is Primary Nurse. mg2 23:48 Patient has correct armband on for positive identification. Pulse ox on. NIBP on. mg2 23:48 No provider procedures requiring assistance completed. mg2 05/20 01:07 IV discontinued, intact, bleeding controlled, No redness/swelling at site. Pressure mg2 dressing applied. Administered Medications: 05/19 23:41 Drug: Zofran 4 mg Route: IVP; Site: right forearm; mg2 05/20 00:45 Follow up: Response: No adverse reaction; Marked relief of symptoms mg2 05/19 23:42 Drug: NS 0.9% 1000 ml Route: IV; Rate: 1000 ml; Site: right forearm; mg2 05/20 00:45 Follow up: Response: No adverse reaction; IV Status: Completed infusion mg2 05/19 23:42 Drug: TORadol 30 mg Route: IVP; Site: right forearm; mg2 05/20 00:45 Follow up: Response: No adverse reaction; Marked relief of symptoms mg2 Outcome: 00:18 Discharge ordered by . pm1 01:08 Discharged to home ambulatory. mg2 01:08 Condition: stable 01:08 Discharge instructions given to patient, Instructed on discharge instructions, follow up and referral plans. medication usage, Demonstrated understanding of instructions, follow-up care, medications, Prescriptions given X 2. 01:08 Patient left the ED. mg2 Signatures: Pgegy Willson Felicia, RN RN Torsten Nichols NP [employer] pm1 Edith French RN RN ea Gardose, Michele, RN RN mg2
[2018-05-20 02:10] VITALS: TEMP 97.8
[2018-05-20 02:11] VITALS: BP 101/60; O2SAT 100
== END 2018-05-20 01:08 | disposition home or self-care (01) ==
LOC: ER 23:05
DX: N39.0 Urinary tract infection, site not specified (principal); R11.10 Vomiting, unspecified; Z72.0 Tobacco use
CPT/HCPCS: 96361; 96374; 96375; 99284; J2405; J7030

== ENCOUNTER 2018-05-20 13:07 | Inpatient (IN) | payer SELFPAY ==
[2018-05-20] MEDS ORDERED: FAMOTIDINE 20 MG/2 ML VIAL IV ONE (15:13)
[2018-05-20] MEDS ORDERED: ONDANSETRON 4 MG/2 ML VIAL ONE ×3 (15:13→19:04)
[2018-05-20] MEDS ORDERED: MORPHINE 4 MG/ML SYR ONE ×2 (15:13→19:03)
[2018-05-20 15:31] LABS: Absolute Lymphocytes (CBC) 1.6 K/uL (0.7-4.9); Absolute Monocytes 0.9 K/uL (0.1-1.3); Absolute Neutrophil 11.3 K/uL (1.8-8.0); Basophils % 0.3 % (0-1.3); Eosinophils % 0.2 % (0-4.4); Hematocrit 35.2 % (36.0-45.0); Lymphocytes % 11.7 % (15.3-44.8); MPV 7.9 fL (7.6-11.3); Monocytes % 6.2 % (3.3-12.3); RBC Red Blood Cell Count 5.45 M/uL (3.86-4.86)
[2018-05-20 15:41] LABS: Albumin 4.2 g/dL (3.4-5.0); Bilirubin Direct 0.1 mg/dL (0-0.2); Bilirubin Total 0.6 mg/dL (0.2-1.0); Potassium 3.5 mmol/L (3.5-5.1); Protein, Total 7.7 g/dL (6.4-8.2)
[2018-05-20 16:18] LABS: Anisocytosis 2+; Blood Morphology Comment NOTED (NOT SEEN); Hypochromasia 1+; Platelet Estimate INCR; Platelets, Giant FEW; Target Cells 1+; Urine White Blood Cell Casts OK
[2018-05-20 16:23] LABS: Urine Blood NEGATIVE (NEG); Urine Glucose NEGATIVE (NEG); Urine Protein 1+ (NEG); Urine pH 6.5 (5.0-7.0)
[2018-05-20] MEDS ORDERED: PROMETHAZINE 25 MG/ML VIAL ONE (17:03)
--- NOTE | 2018-05-20 17:05 | EDPHYS ---
Physician Documentation [facility] Name: Mair Chicas Age: 33 yrs Sex: Female : 1985 Arrival Date: 05/20/2018 Time: 13:08 Bed 17 Private MD: None, None ED Physician Edilberto Huston HPI: 05/20 14:58 This 33 yrs old Female presents to ER via Ambulatory with complaints of UTI. tara 14:58 The patient presents with abdominal pain in the upper abdomen, in the lower abdomen, tara abdominal distention in the upper abdomen, in the lower abdomen. Onset: The symptoms/episode began/occurred 3 day(s) ago. The symptoms do not radiate. The symptoms are described as constant, crampy. Modifying factors: The symptoms are alleviated by nothing, the symptoms are aggravated by nothing. Severity of pain: At its worst the pain was moderate severe in the emergency department the pain is unchanged. The patient has not experienced similar symptoms in the past. Historical: - Allergies: 13:32 Codeine; ss - PMHx: 13:32 Anxiety; ss - PSHx: 13:32 None; ss - Immunization history:: Adult Immunizations unknown. - Social history:: Smoking status: Patient uses tobacco products, smokes one-half pack cigarettes per day, Patient uses street drugs, marijuana. - Ebola Screening: : Patient denies exposure to infectious person Patient denies travel to an Ebola-affected area in the 21 days before illness onset. - Family history:: not pertinent. ROS: 14:58 Constitutional: Negative for fever, chills, and weight loss, Eyes: Negative for injury, tara pain, redness, and discharge, ENT: Negative for injury, pain, and discharge, Neck: Negative for injury, pain, and swelling, Cardiovascular: Negative for chest pain, palpitations, and edema, Respiratory: Negative for shortness of breath, cough, wheezing, and pleuritic chest pain, Back: Negative for injury and pain, : Negative for injury, bleeding, discharge, and swelling, MS/Extremity: Negative for injury and deformity, Skin: Negative for injury, rash, and discoloration, Neuro: Negative for headache, weakness, numbness, tingling, and seizure, Psych: Negative for depression, anxiety, suicide ideation, homicidal ideation, and hallucinations, Allergy/Immunology: Negative for hives, rash, and allergies, Endocrine: Negative for neck swelling, polydipsia, polyuria, polyphagia, and marked weight changes, Hematologic/Lymphatic: Negative for swollen nodes, abnormal bleeding, and unusual bruising. 14:58 Abdomen/GI: Positive for abdominal pain, abdominal cramps, abdominal distension, of the right upper quadrant, left upper quadrant, right lower quadrant and left lower quadrant. Exam: 14:58 Head/Face: Normocephalic, atraumatic. Eyes: Pupils equal round and reactive to light, tara extra-ocular motions intact. Lids and lashes normal. Conjunctiva and sclera are non-icteric and not injected. Cornea within normal limits. Periorbital areas with no swelling, redness, or edema. ENT: Nares patent. No nasal discharge, no septal abnormalities noted. Tympanic membranes are normal and external auditory canals are clear. Oropharynx with no redness, swelling, or masses, exudates, or evidence of obstruction, uvula midline. Mucous membranes moist. Neck: Trachea midline, no thyromegaly or masses palpated, and no cervical lymphadenopathy. Supple, full range of motion without nuchal rigidity, or vertebral point tenderness. No Meningismus. Chest/axilla: Normal chest wall appearance and motion. Nontender with no deformity. No lesions are appreciated. 14:58 Cardiovascular: Regular rate and rhythm with a normal S1 and S2. No gallops, murmurs, or rubs. Normal PMI, no JVD. No pulse deficits. Respiratory: Lungs have equal breath sounds bilaterally, clear to auscultation and percussion. No rales, rhonchi or wheezes noted. No increased work of breathing, no retractions or nasal flaring. Back: No spinal tenderness. No costovertebral tenderness. Full range of motion. Skin: Warm, dry with normal turgor. Normal color with no rashes, no lesions, and no evidence of cellulitis. MS/ Extremity: Pulses equal, no cyanosis. Neurovascular intact. Full, normal range of motion. Neuro: Awake and alert, GCS 15, oriented to person, place, time, and situation. Cranial nerves II-XII grossly intact. Motor strength 5/5 in all extremities. Sensory grossly intact. Cerebellar exam normal. Normal gait. Psych: Awake, alert, with orientation to person, place and time. Behavior, mood, and affect are within normal limits. 14:58 Constitutional: The patient appears in obvious distress, moderately distressed. 14:58 Abdomen/GI: Inspection: distension, Bowel sounds: diminished, Palpation: moderate abdominal tenderness, in all quadrants, Liver: no appreciated palpable abnormalities, Hernia: not appreciated. Vital Signs: 13:32 BP 126 / 71; Pulse 81; Resp 28; Temp 98.0(TE); Pulse Ox 97% on R/A; Height 5 ft. 5 in. ss (165.10 cm); Pain 10/10; 15:30 BP 130 / 72; Pulse 54; Resp 16; Pulse Ox 99% on R/A; Pain 10/10; em 16:15 BP 124 / 79; Pulse 61; Resp 18; Pulse Ox 98% on R/A; em 16:39 BP 120 / 75; Pulse 72; Resp 17; Pulse Ox 100% on R/A; em 17:00 BP 131 / 83; Pulse 58; Resp 18; Pulse Ox 100% on R/A; em 18:05 BP 122 / 75; Pulse 58; Resp 18; Pulse Ox 99% on R/A; Pain 10/10; em 19:22 BP 143 / 92; Pulse 75; Resp 18; Pulse Ox 100% on R/A; ca1 19:30 BP 156 / 80; Pulse 87; Temp 98.5(O); Pulse Ox 100% on R/A; jb4 20:16 BP 129 / 85; Pulse 85; Resp 18; Pulse Ox 100% on R/A; ca1 MDM: 14:44 Patient medically screened. [facility] 15:01 Data reviewed: vital signs, nurses notes, lab test result(s), EKG, radiologic studies, [facility] CT scan, plain films. 05/20 13:51 Order name: Urine Culture formerly [facility] 05/20 13:51 Order name: Urine Microscopic Only; Complete Time: 18:01 formerly [facility] 05/20 14:57 Order name: Basic Metabolic Panel; Complete Time: 15:45 [facility] 05/20 14:57 Order name: CBC with Diff; Complete Time: 16:54 [facility] 05/20 14:57 Order name: Creatinine for Radiology; Complete Time: 15:45 [facility] 05/20 14:57 Order name: Hepatic Function; Complete Time: 15:45 [facility] 05/20 14:57 Order name: Lipase; Complete Time: 15:45 [facility] 05/20 14:57 Order name: CT Abd/Pelvis - W/Contrast: oral and iv [facility] 05/20 15:43 Order name: CBC Smear Scan; Complete Time: 16:54 EDNM 05/20 16:16 Order name: Urine Dipstick--Ancillary (enter results); Complete Time: 16:54 05/20 16:16 Order name: Urine --Ancillary (enter results); Complete Time: 16:54 05/20 18:20 Order name: CT; Complete Time: 18:55 EDNM 05/20 13:51 Order name: Urine Test (obtain specimen); Complete Time: 16:11 sn 05/20 13:51 Order name: Urine Dipstick-Ancillary (obtain specimen); Complete Time: 16:11 formerly [facility] 05/20 14:57 Order name: IV Saline Lock; Complete Time: 15:23 [facility] 05/20 14:57 Order name: Labs collected and sent; Complete Time: 15:23 [facility] 05/20 18:54 Order name: NG Tube: sbo; Complete Time: 19:28 [facility] Administered Medications: 15:21 Drug: morphine 4 mg Route: IVP; Site: right antecubital; ss 16:24 Follow up: Response: No adverse reaction; Pain is decreased em 16:39 Follow up: BP 120 / 75; Pulse 72 bpm; Resp 17 bpm; Pulse Ox 100% RA em 15:21 Drug: Zofran 4 mg Route: IVP; Site: right antecubital; ss 16:24 Follow up: Response: No adverse reaction em 15:21 Drug: Pepcid 20 mg Route: IVP; Site: right antecubital; ss 16:24 Follow up: Response: No adverse reaction em 16:25 Drug: Zofran 4 mg Route: IVP; Site: right antecubital; em 16:58 Follow up: Response: No adverse reaction; Nausea unchanged em 16:58 CANCELLED (Duplicate Order): Phenergan 6.25 mg IVP once [facility] 16:59 Drug: Phenergan 12.5 mg Route: IVP; Site: right antecubital; ss 17:39 Follow up: Response: No adverse reaction; Nausea is decreased em 17:09 Drug: NS 0.9% 1000 ml Route: IV; Rate: 1 bolus; Site: right antecubital; em 19:00 Follow up: IV Status: Completed infusion; IV Intake: 1000ml em 19:00 Drug: NS 0.9% 1000 ml Route: IV; Rate: 125 ml/hr; Site: right antecubital; em 19:02 Drug: morphine 4 mg Route: IVP; Site: right antecubital; em 20:22 Follow up: Response: No adverse reaction ca1 19:02 Drug: Zofran 4 mg Route: IVP; Site: right antecubital; em 20:22 Follow up: Response: No adverse reaction ca1 19:27 Drug: Cipro 400 mg Volume: 200 ml; Route: IVPB; Infused Over: 60 mins; Site: right aa1 antecubital; 20:23 Follow up: IV Status: Infusion continued upon admission ca1 19:27 Drug: Flagyl 500 mg Volume: 100 ml; Route: IVPB; Rate: 200 ml/hr; Infused Over: 30 aa1 mins; Site: right antecubital; 20:23 Follow up: IV Status: Infusion continued upon admission ca1 19:40 Drug: NS 0.9% 1000 ml Route: IV; Rate: 1 bolus; Site: right antecubital; aa1 20:22 Follow up: IV Status: Infusion continued upon admission ca1 Disposition: 05/20/18 17:04 Hospitalization ordered by Jose De Jesus White for Inpatient Admission. Preliminary diagnosis are Abdominal tenderness, Elevated white blood cell count, Vomiting, Volume depletion, Other intestinal obstruction - small bowel obstruction. - Bed requested for Telemetry/MedSurg (Inpatient). - Status is Inpatient Admission. ca1 - Condition is Fair. - Problem is new. - Symptoms have improved. UTI on Admission? No Signatures: Dispatcher [employer] EDNM Ratna Rosenthal RN RN aa1 Edilberto Huston MD MD cha Therrien, Shelly, DINKEY LOCOMOTIVE OPERATOR-C DINKEY LOCOMOTIVE OPERATOR-Csnw Ge Martinez, CAB DRIVER CAB DRIVER Aide Degroot RN RN Frannie Gilman 2 Bambi Velásquez Cheryl, RN RN ca1 Corrections: (The following items were deleted from the chart) 16:58 16:58 Phenergan 6.25 mg IVP once ordered. tara pacheco 18:04 17:04 Hospitalization Ordered by Jose De Jesus White DO for Observation. Preliminary eb diagnosis is Abdominal tenderness; Elevated white blood cell count; Vomiting; Volume depletion. Bed requested for Telemetry/MedSurg (observation). Status is Observation. Condition is Fair. Problem is new. Symptoms have improved. UTI on Admission? No. tara 18:52 18:04 05/20/2018 17:04 [facility] Preliminary diagnosis is Abdominal tenderness; Elevated white blood cell count; Vomiting; Volume depletion. Bed requested for Telemetry/MedSurg (observation). Status is Observation. Condition is Fair. Problem is new. Symptoms have improved. UTI on Admission? No. 19:47 18:52 05/20/2018 17:04 Hospitalization Ordered by [facility] for Inpatient mw2 Admission. Preliminary diagnosis is Abdominal tenderness; Elevated white blood cell count; Vomiting; Volume depletion; Other intestinal obstruction - small bowel obstruction. Bed requested for Telemetry/MedSurg (Inpatient). Status is Inpatient Admission. Condition is Fair. Problem is new. Symptoms have improved. UTI on Admission? No. [facility] 19:58 19:47 05/20/2018 17:04 [facility]. Preliminary diagnosis is Abdominal tenderness; Elevated white blood cell count; Vomiting; Volume depletion; Other intestinal obstruction - small bowel obstruction. Bed requested for Telemetry/MedSurg (Inpatient). Status is Inpatient Admission. Condition is Fair. Problem is new. Symptoms have improved. UTI on Admission? No. mw2 20:24 19:58 05/20/2018 17:04 Hospitalization Ordered by [facility] for Inpatient ca1 Admission. Preliminary diagnosis is Abdominal tenderness; Elevated white blood cell count; Vomiting; Volume depletion; Other intestinal obstruction - small bowel obstruction. Bed requested for Telemetry/MedSurg (Inpatient). Status is Inpatient Admission. Condition is Fair. Problem is new. Symptoms have improved. UTI on Admission? No. mw2
--- NOTE | 2018-05-20 17:05 | ER ---
Nurse's Notes [facility] Name: Mari Chicas Age: 33 yrs Sex: Female : 1985 Arrival Date: 05/20/2018 Time: 13:08 Bed 17 Private MD: None, None Diagnosis: Abdominal tenderness;Elevated white blood cell count;Vomiting;Volume depletion;Other intestinal obstruction-small bowel obstruction Presentation: 05/20 13:30 Presenting complaint: Friend states: N/V, abd cramping that began yesterday. Friend ss reports that patient has been seen twice in the ER since yesterday morning and after receiving IV medication she feels better, but once she gets home she starts feeling much worse. Transition of care: patient was not received from another setting of care. Onset of symptoms was May 19, 2018. Risk Assessment: Do you want to hurt yourself or someone else? Patient reports no desire to harm self or others. Initial Sepsis Screen: Does the patient have a suspected source of infection?. Care prior to arrival: None. 13:30 Method Of Arrival: Ambulatory ss 13:30 Acuity: FILI 3 ss 20:21 Initial Sepsis Screen: Does the patient meet any 2 criteria?. ca1 Historical: - Allergies: 13:32 Codeine; ss - PMHx: 13:32 Anxiety; ss - PSHx: 13:32 None; ss - Immunization history:: Adult Immunizations unknown. - Social history:: Smoking status: Patient uses tobacco products, smokes one-half pack cigarettes per day, Patient uses street drugs, marijuana. - Ebola Screening: : Patient denies exposure to infectious person Patient denies travel to an Ebola-affected area in the 21 days before illness onset. - Family history:: not pertinent. Screenin:00 Abuse screen: Denies threats or abuse. Nutritional screening: No deficits noted. em Tuberculosis screening: No symptoms or risk factors identified. Fall Risk None identified. Assessment: 15:00 General: Appears in no apparent distress. uncomfortable, Behavior is cooperative, em anxious, Denies fever. Pain: Complains of pain in abdomen Pain currently is 10 out of 10 on a pain scale. Neuro: Level of Consciousness is awake, alert, obeys commands, Oriented to person, place, time, situation. Cardiovascular: Patient's skin is warm and dry. Respiratory: Airway is patent Respiratory effort is even, unlabored, Respiratory pattern is regular, symmetrical. GI: Abdomen is flat, Bowel sounds present X 4 quads. Reports nausea, vomiting, Patient currently denies diarrhea. : Reports being dx with UTI. Derm: Skin is intact, Skin is pink, warm \T\ dry. Musculoskeletal: Range of motion: intact in all extremities. 15:05 General: The previous assessment is accurate, call light remains within reach. ss 16:33 Reassessment: Patient appears in no apparent distress at this time. Patient and/or em family updated on plan of care and expected duration. Pain level reassessed. Patient is alert, oriented x 3, equal unlabored respirations, skin warm/dry/pink. finished PO contrast, CT dept. notified. 17:30 Reassessment: Patient appears in no apparent distress at this time. Patient and/or em family updated on plan of care and expected duration. Pain level reassessed. Patient is alert, oriented x 3, equal unlabored respirations, skin warm/dry/pink. Patient states symptoms have improved. 18:00 Reassessment: Patient is alert, oriented x 3, equal unlabored respirations, skin em warm/dry/pink. reports nausea and pain, provider notified, new medication orders received. 19:22 Reassessment: Patient appears in no apparent distress at this time. Patient and/or ca1 family updated on plan of care and expected duration. Pain level reassessed. Patient is alert, oriented x 3, equal unlabored respirations, skin warm/dry/pink. patient sitting on bed. Still complains of nausea. Explained need for NGT insertion. Prepared patient for procedure. 20:16 Reassessment: Patient appears in no apparent distress at this time. Patient and/or ca1 family updated on plan of care and expected duration. Pain level reassessed. Patient is alert, oriented x 3, equal unlabored respirations, skin warm/dry/pink. Preparing to be wheeled to room. . Vital Signs: 13:32 BP 126 / 71; Pulse 81; Resp 28; Temp 98.0(TE); Pulse Ox 97% on R/A; Height 5 ft. 5 in. ss (165.10 cm); Pain 10/10; 15:30 BP 130 / 72; Pulse 54; Resp 16; Pulse Ox 99% on R/A; Pain 10/10; em 16:15 BP 124 / 79; Pulse 61; Resp 18; Pulse Ox 98% on R/A; em 16:39 BP 120 / 75; Pulse 72; Resp 17; Pulse Ox 100% on R/A; em 17:00 BP 131 / 83; Pulse 58; Resp 18; Pulse Ox 100% on R/A; em 18:05 BP 122 / 75; Pulse 58; Resp 18; Pulse Ox 99% on R/A; Pain 10/10; em 19:22 BP 143 / 92; Pulse 75; Resp 18; Pulse Ox 100% on R/A; ca1 19:30 BP 156 / 80; Pulse 87; Temp 98.5(O); Pulse Ox 100% on R/A; jb4 20:16 BP 129 / 85; Pulse 85; Resp 18; Pulse Ox 100% on R/A; ca1 ED Course: 13:08 Patient arrived in ED. sb2 13:09 None, None is Private Physician. sb2 13:31 Triage completed. ss 13:32 Arm band placed on right wrist. ss 14:44 Edilberto Huston MD is Attending Physician. tara 15:00 Ge Martinez LVN is Primary Nurse. em 15:00 Patient has correct armband on for positive identification. Bed in low position. Call em light in reach. Adult w/ patient. Pulse ox on. NIBP on. 15:10 Initial lab(s) drawn, by me, sent to lab. Inserted saline lock: 20 gauge in right em antecubital area, using aseptic technique. Blood collected. 17:03 Jose De Jesus White DO is Hospitalizing Provider. tara 17:54 Patient moved to [place]. nj 18:02 CT completed. Patient tolerated procedure well. Patient moved back from MN. vm2 19:20 NGT: inserted 14 Fr. via left nare. verified placement of air over stomach, verified ca1 return of gastric contents, to intermittent suction. Patient tolerated well. 20:05 Report given to Carmen Park RN at 2nd floor by JESSIE Felix. ca1 20:19 No provider procedures requiring assistance completed. Patient admitted, IV remains in ca1 place. Administered Medications: 15:21 Drug: morphine 4 mg Route: IVP; Site: right antecubital; ss 16:24 Follow up: Response: No adverse reaction; Pain is decreased em 16:39 Follow up: BP 120 / 75; Pulse 72 bpm; Resp 17 bpm; Pulse Ox 100% RA em 15:21 Drug: Zofran 4 mg Route: IVP; Site: right antecubital; ss 16:24 Follow up: Response: No adverse reaction em 15:21 Drug: Pepcid 20 mg Route: IVP; Site: right antecubital; ss 16:24 Follow up: Response: No adverse reaction em 16:25 Drug: Zofran 4 mg Route: IVP; Site: right antecubital; em 16:58 Follow up: Response: No adverse reaction; Nausea unchanged em 16:58 CANCELLED (Duplicate Order): Phenergan 6.25 mg IVP once tara 16:59 Drug: Phenergan 12.5 mg Route: IVP; Site: right antecubital; ss 17:39 Follow up: Response: No adverse reaction; Nausea is decreased em 17:09 Drug: NS 0.9% 1000 ml Route: IV; Rate: 1 bolus; Site: right antecubital; em 19:00 Follow up: IV Status: Completed infusion; IV Intake: 1000ml em 19:00 Drug: NS 0.9% 1000 ml Route: IV; Rate: 125 ml/hr; Site: right antecubital; em 19:02 Drug: morphine 4 mg Route: IVP; Site: right antecubital; em 20:22 Follow up: Response: No adverse reaction ca1 19:02 Drug: Zofran 4 mg Route: IVP; Site: right antecubital; em 20:22 Follow up: Response: No adverse reaction ca1 19:27 Drug: Cipro 400 mg Volume: 200 ml; Route: IVPB; Infused Over: 60 mins; Site: right aa1 antecubital; 20:23 Follow up: IV Status: Infusion continued upon admission ca1 19:27 Drug: Flagyl 500 mg Volume: 100 ml; Route: IVPB; Rate: 200 ml/hr; Infused Over: 30 aa1 mins; Site: right antecubital; 20:23 Follow up: IV Status: Infusion continued upon admission ca1 19:40 Drug: NS 0.9% 1000 ml Route: IV; Rate: 1 bolus; Site: right antecubital; aa1 20:22 Follow up: IV Status: Infusion continued upon admission ca1 Intake: 19:00 IV: 1000ml; Total: 1000ml. em Outcome: 17:04 Decision to Hospitalize by Provider. tara 20:19 Admitted to Med/surg accompanied by tech, via stretcher, with chart, Report called to ca1 Carmen Park RN 20:19 Condition: stable 20:19 Instructed on the need for admit. 20:24 Patient left the ED. ca1 Signatures: Ratna Rosenthal, RN RN aa1 Edilberto Huston MD MD cha Munoz, Ge, NEON TUBE PUMPER NEON TUBE PUMPER em Aide Walsh RN RN ss Bryson, James, RN RN Zan Wilson [facility] Jenelle Quigley Cheryl, RN RN ca1 Corrections: (The following items were deleted from the chart) 19:26 19:20 NGT: inserted 14 Fr. via left nare. verified placement of air over stomach, ca1 verified return of gastric contents, to intermittent suction. ca1
[2018-05-20] MEDS ORDERED: NA CHLORIDE 0.9% 2,000 ML ONE (17:15)
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
[2018-05-20 17:36] LABS: Urine Bacteria <20 /HPF (<20); Urine RBC NONE SEEN /HPF (NONE SEEN)
[2018-05-20 17:37] LABS: Urine Culture Reflex Order NOT NEEDED; Urine Mucus 1+ /HPF (NONE SEEN)
--- NOTE | 2018-05-20 18:17 | RAD REPORT ---
EXAM DESCRIPTION: CT - Abdomen Pelvis W Contrast - 05/20/2018 6:04 pm CLINICAL HISTORY: Abdominal pain. COMPARISON: May 19 2018 TECHNIQUE: Computed axial tomography of the abdomen and pelvis was obtained. 100 cc Isovue-300 is ad ministered intravenously. Oral contrast was given. All CT scans are performed using dose optimization technique as appropriate and may include automated exposure control or mA/KV adjustment according to patient size. FINDINGS: The liver, spleen, pancreas, adrenals and kidneys appear unremarkable. The appendix is normal caliber. There is no evidence of diverticulitis Mild dilatation of jejunum and portion of the ileum. Mid and distal ileum are decompressed Small amount of ascites IMPRESSION: These findings likely indicate an obstruction in the region of the mid ileum
[2018-05-20] MEDS ORDERED: METRONIDAZOLE 500mg IVPB 500 MG/100 ML BAG IV ONE (19:04)
[2018-05-20] MEDS ORDERED: CIPROFLOXACIN 400mg IV 400 MG/200 ML BAG IV ONE (19:04)
[2018-05-20] MEDS ORDERED: ONDANSETRON 4 MG/2 ML VIAL IV PRN (20:05)
[2018-05-20] MEDS ORDERED: HYDROCODONE/APAP 7.5/325 MG TAB PO PRN (20:05)
[2018-05-20] MEDS: NA CHLORIDE 0.9% 1,000 ML IV SCH (20:05)
[2018-05-20] MEDS ORDERED: ACETAMINOPHEN 500 MG TAB PO PRN (20:05)
[2018-05-20] MEDS ORDERED: TRAMADOL HCL 50 MG TAB PO PRN (20:05)
[2018-05-20] MEDS ORDERED: MORPHINE 2 MG/ML SYR IV PRN (20:05)
[2018-05-20] MEDS ORDERED: SODIUM CHLORIDE 0.9% 10ML INJ IV PRN (20:05)
[2018-05-20 20:51] LABS: Thyroid Stimulating Hormone 2.62 uIU/mL (0.360-3.740)
[2018-05-20 20:54] VITALS: BMI 24.4
[2018-05-20] MEDS: ONDANSETRON 4 MG/2 ML VIAL IV PRN (21:15)
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
[2018-05-20 21:45] LABS: Barbiturates NEGATIVE (NEGATIVE); Benzodiazepines NEGATIVE (NEGATIVE); Cocaine NEGATIVE (NEGATIVE); METHAMPHETAM NEGATIVE (NEGATIVE); Methadone NEGATIVE (NEGATIVE); Opiates POSITIVE (NEGATIVE); Phencyclidine NEGATIVE (NEGATIVE); THC Cannibis POSITIVE (NEGATIVE)
[2018-05-20] MEDS ORDERED: Ringers Lactate 1,000 ML IV ONE (21:59)
[2018-05-20] MEDS ORDERED: SUCCINYLCHOLINE 20 MG/ML (10 ML) IV ONE (22:03)
[2018-05-20] MEDS ORDERED: FENTANYL CITR 100 MCG/2 ML ONE ×2 (22:11→23:36)
[2018-05-20] MEDS ORDERED: PROPOFOL 200 MG/20 ML VIAL IV ONE (22:11)
[2018-05-20] MEDS ORDERED: MIDAZOLAM HCL 2 MG/2 ML INJ ONE (22:11)
[2018-05-20] MEDS ORDERED: ROCURONIUM 50 MG/5 ML VIAL IV ONE ×2 (22:11→23:17)
[2018-05-20] MEDS ORDERED: CEFOXITIN/SWI 1gm 1 GM/10 ML SYR ONE (22:19)
[2018-05-20] MEDS ORDERED: GLYCOPYRROLATE 0.2 MG/ML SYR ONE (23:41)
[2018-05-20] MEDS ORDERED: NEOSTIGMINE 1 MG/ML -5 ML SYRINGE ONE (23:41)
--- NOTE | 2018-05-21 00:05 | P.OP ---
Preoperative diagnosis: Small-bowel obstruction Postoperative diagnosis: The same Primary procedure: Exploratory laparotomy, lysis of extensive intra-abdominal adhesions Anesthesia: General Estimated blood loss: Less than 10 cc Specimen: Cultures of peritoneum were taken Findings: Extensive intra-abdominal adhesions with small bowel obstruct Operative Technique: The patient brought the operating room and placed supine on the table. After the induction of adequate general endotracheal anesthesia, the area of the abdomen was prepped with a DuraPrep solution, after the insertion of a Huber catheter, and she was draped in usual aseptic manner. A generous midline incision was made. This brought down through this in subcutaneous tissue. The fascia was opened for the full length of our incision. The peritoneum was grasped between 2 hemostats pulse and sharply incise to allow access to the peritoneal cavity. Our incision was now opened for the full length. On visualization the peritoneal cavity appeared almost as if the bowel was stuck in a hole. There were extensive adhesions both the intra loop as well as to the omentum itself. Down in the true pelvis we could see there is a transition between dilated proximal bowel and then a relatively collapsed distal bowel extending from the cecum to the ileum. We started take down these adhesions. The omentum was freed from the true pelvis. The omental adhesions seemed to favor of motion of the right side of the abdomen. We were able to open this up on the left side in get into some normal-appearing bowel however the adhesions extended all the way over to the white line of T[place]t. We were actually able to free the bowel by coming up without opening the white line. The small bowel was then carefully mobilized taking down these adhesions. In the true pelvis being countered a series of more dense adhesions that were attached to the back wall of the uterus around the ovarian ligament. This bowel showed our actual transition site. Did bowel was not compromised in this area. The adhesions were now freed up out of the pelvis. The small bowel was run from the distal jejunum down to the terminal ileum. All these adhesions were taken down in this area. At this point the pelvis was inspected. There were adhesions of the sigmoid colon to the back of the uterus. These were gently taken down using blunt sharp dissection. The abdomen is now aspirated of this action of fluid that had accumulated in the pelvis. The bowel was now replaced back in the peritoneal cavity anus relatively normal position. The omentum was laid over the top of the bowel. The midline incision was then closed with a running suture of PDS. Stanislav were applied to the skin At the end of the procedure the patient is stable when sent to the recovery room. Needle sponge instrument count were correct. No drains were placed.. Complications: None Drain(s): Nasogastric Transferred to: Recovery Room Condition: Good
[2018-05-21] MEDS ORDERED: KETOROLAC 30 MG/ML INJ ONE (00:08)
[2018-05-21] MEDS: MEPERIDINE HCL 50 MG/ML AMP ONE ×4 (00:10→00:20)
[2018-05-21] MEDS ORDERED: MINERAL OIL 30 ML UCUP GT ONE ×2 (00:21→10:26)
[2018-05-21] MEDS: FENTANYL CITR 100 MCG/2 ML ONE ×4 (00:33→00:50)
[2018-05-21] MEDS ORDERED: NA CHLORIDE 0.9% 1,000 ML ONE (00:54)
[2018-05-21] MEDS: ONDANSETRON 4 MG/2 ML VIAL IV PRN ×3 (04:09→16:30)
[2018-05-21 06:01] LABS: ALT/SGPT 23 U/L (12-78); AST/SGOT 13 U/L (15-37); Albumin 3.4 g/dL (3.4-5.0); Alkaline Phosphatase 59 U/L (45-117); BUN Blood Urea Nitrogen 9 mg/dL (7-18); Bicarbonate 23 mmol/L (21-32); Bilirubin Total 0.4 mg/dL (0.2-1.0); Glucose Level 98 mg/dL (74-106); Magnesium 1.9 mg/dL (1.8-2.4); Potassium 3.6 mmol/L (3.5-5.1); Protein, Total 6.1 g/dL (6.4-8.2); Sodium Level 141 mmol/L (136-145)
[2018-05-21] MEDS: NA CHLORIDE 0.9% 1,000 ML IV SCH ×3 (06:05→16:05)
[2018-05-21 06:07] LABS: Absolute Lymphocytes (CBC) 1.7 K/uL (0.7-4.9); Absolute Monocytes 1.4 K/uL (0.1-1.3); Absolute Neutrophil 19.8 K/uL (1.8-8.0); Basophils % 0.1 % (0-1.3); Hematocrit 31.4 % (36.0-45.0); Lymphocytes % 7.4 % (15.3-44.8); MPV 7.9 fL (7.6-11.3); Monocytes % 6.3 % (3.3-12.3)
[2018-05-21] MEDS ORDERED: KCL 20 MEQ/100 mL IVPB 20 MEQ/100 ML BAG IV SCH (08:00)
[2018-05-21] MEDS ORDERED: MORPHINE 4 MG/ML SYR IV PRN (08:45)
[2018-05-21 08:55] LABS: Anisocytosis 1+; Blood Morphology Comment NOTED (NOT SEEN); Platelet Estimate INCR
[2018-05-21 08:56] LABS: Hypochromasia 2+
[2018-05-21 08:57] LABS: Target Cells 1+
[2018-05-21] MEDS: ENOXAPARIN 40 MG/0.4 ML SQ SCH (08:58)
[2018-05-21] MEDS: PANTOPRAZOLE 40 MG INJ IVP SCH (08:58)
[2018-05-21] MEDS: NICOTINE 21 MG/PAT TD SCH (08:59)
[2018-05-21] MEDS: DOXYCYCLINE 100 MG in NA CHLORIDE 0.9% 100 ML IVPB SCH ×2 (09:00→20:33)
[2018-05-21] MEDS: MORPHINE 4 MG/ML SYR IV PRN ×6 (09:54→21:46)
--- NOTE | 2018-05-21 10:25 | P.PN ---
Date of Service: 05/21/18 S: The patient's pain is not adequately controlled on current dose of morphine. She is anxious to get up and move around. Has not voided all night. O: Incisions are clean, vital signs are stable, has a significantly elevated white cell count but is on doxycycline at the moment A: Surgically stable P: Pain medicine has been adjusted. Once the patient is comfortable, she is anxious to get up and walk. Nasogastric tube still has some drainage. Will most likely does not with some mineral oil, and Dc it this evening.
--- NOTE | 2018-05-21 13:48 | P.PN ---
Subjective Date of Service: 05/21/18 Primary Care Provider: None Chief Complaint: Abdominal pain, nausea vomiting Subjective: Other (Patient stable this time. Patient had surgery last night due to obstruction.) Physical Examination - Vital Signs Temperature: 98.3 F Blood Pressure: 133/78 Pulse: 87 Respirations: 18 Pulse Ox (%): 98 - Physical Exam General: Alert, In no apparent distress, Cooperative HEENT: Atraumatic Neck: Supple Respiratory: Clear to auscultation bilaterally, Normal air movement Cardiovascular: Normal pulses, Regular rate/rhythm Gastrointestinal: Hypoactive, Non-distended, Tenderness (To the abdomen noted. Postop changes noted.) Musculoskeletal: No tenderness, No warmth Integumentary: No tenderness/swelling, No erythema, No warmth, No cyanosis Neurological: Normal speech, Normal strength at 5/5 x4 extr, Normal tone, Normal affect - Studies Laboratory Data (last 24 hrs) 05/20/18 15:15: Creatinine 0.88 05/20/18 15:15: WBC 13.9 H, Hgb 11.4 L, Hct 35.2 L, Plt Count 466 H 05/20/18 15:15: Sodium 142, Potassium 3.5, BUN 15, Creatinine 0.90, Glucose 100 , Total Bilirubin 0.6, AST 16, ALT 30, Alkaline Phosphatase 77, Lipase 103 Medications List Reviewed: Yes Assessment & Plan Discharge Plan: Home Plan to discharge in: Greater than 2 days Physician Review Additional Text: Impression: Abdominal pain, intractable nausea and vomiting secondary to small bowel obstruction status post extensive lyses of adhesions complicated with cannabis hyperemesis syndrome Dehydration Anxiety Tobacco abuse Anemia Plan: Abdominal pain, intractable nausea and vomiting secondary to small bowel obstruction status post extensive lyses of adhesions complicated with cannabis hyperemesis syndrome: Patient had surgery last night for small bowel obstruction. Extensive lyses of adhesions done. Patient currently stable this time. Continue with IV pain control along with antiemetic therapy. Continue with IV fluids and antibiotics. Will monitor closely. NG tube in place. Will discuss with surgery per for plan. Dehydration: Will continue IV fluids. Will monitor closely Anxiety: Will provide medication as needed Tobacco abuse: Will provide nicotine patch. Tobacco cessation addressed in detail. Anemia: Will monitor closely. Will check iron and B12 studies Time Spent Managing Pts Care (In Minutes): 55
[2018-05-21] MEDS: LORazepam 2 MG/ML VIAL IV PRN (19:44)
[2018-05-22] MEDS: NA CHLORIDE 0.9% 1,000 ML IV SCH ×4 (00:08→22:05)
[2018-05-22] MEDS: MORPHINE 4 MG/ML SYR IV PRN ×8 (00:08→22:07)
[2018-05-22] MEDS: ONDANSETRON 4 MG/2 ML VIAL IV PRN ×3 (00:15→17:10)
[2018-05-22 05:12] LABS: Hematocrit 30.3 % (36.0-45.0); RBC Red Blood Cell Count 4.63 M/uL (3.86-4.86)
[2018-05-22 05:13] LABS: Absolute Lymphocytes (CBC) 1.7 K/uL (0.7-4.9); Absolute Monocytes 1.3 K/uL (0.1-1.3); Absolute Neutrophil 9.4 K/uL (1.8-8.0); Basophils % 0.3 % (0-1.3); Eosinophils % 0.8 % (0-4.4); Lymphocytes % 13.7 % (15.3-44.8); MPV 7.8 fL (7.6-11.3); Monocytes % 10.2 % (3.3-12.3)
[2018-05-22 05:48] LABS: ALT/SGPT 18 U/L (12-78); AST/SGOT 14 U/L (15-37); Albumin 3.2 g/dL (3.4-5.0); Alkaline Phosphatase 65 U/L (45-117); BUN Blood Urea Nitrogen 5 mg/dL (7-18); Bicarbonate 22 mmol/L (21-32); Bilirubin Total 0.5 mg/dL (0.2-1.0); Glucose Level 72 mg/dL (74-106); Potassium 3.5 mmol/L (3.5-5.1); Protein, Total 6.3 g/dL (6.4-8.2); Sodium Level 139 mmol/L (136-145)
[2018-05-22] MEDS ORDERED: KCL 20 MEQ/100 mL IVPB 20 MEQ/100 ML BAG IV SCH (06:00)
[2018-05-22] MEDS: ENOXAPARIN 40 MG/0.4 ML SQ SCH (08:40)
[2018-05-22] MEDS: NICOTINE 21 MG/PAT TD SCH (08:40)
[2018-05-22] MEDS: PANTOPRAZOLE 40 MG INJ IVP SCH (08:43)
[2018-05-22] MEDS: DOXYCYCLINE 100 MG in NA CHLORIDE 0.9% 100 ML IVPB SCH ×2 (08:44→21:31)
--- NOTE | 2018-05-22 09:12 | P.PN ---
Subjective Date of Service: 05/22/18 Primary Care Provider: None Chief Complaint: Abdominal pain, nausea vomiting Subjective: Other (Patient improved. Pain better control. NG tube in place. No passage of gas yet.) Physical Examination - Vital Signs Temperature: 98.5 F Blood Pressure: 120/62 Pulse: 90 Respirations: 18 Pulse Ox (%): 98 - Physical Exam General: Alert, In no apparent distress, Oriented x3, Cooperative HEENT: Atraumatic Neck: Supple Respiratory: Clear to auscultation bilaterally, Normal air movement Cardiovascular: Normal pulses, Regular rate/rhythm Gastrointestinal: Hypoactive, Non-distended, No masses, No rebound, No guarding , Tenderness (Pain improved. Postoperative changes noted.) Musculoskeletal: No erythema, No tenderness, No warmth Integumentary: No erythema, No warmth, No cyanosis Neurological: Normal speech, Normal strength at 5/5 x4 extr, Normal tone, Normal affect Lymphatics: No axilla or inguinal lymphadenopathy - Studies Microbiology Data (last 24 hrs): 05/20/18 16:00 Clean Catch Urine [place] Count - Final 05/20/18 16:00 Clean Catch Urine - Final Medications List Reviewed: Yes Assessment & Plan Discharge Plan: Home Plan to discharge in: 48 Hours Physician Review Additional Text: Impression: Abdominal pain, intractable nausea and vomiting secondary to small bowel obstruction status post extensive lyses of adhesions complicated with cannabis hyperemesis syndrome, postop day 2 Dehydration Anxiety Tobacco abuse Anemia Plan: Abdominal pain, intractable nausea and vomiting secondary to small bowel obstruction status post extensive lyses of adhesions complicated with cannabis hyperemesis syndrome, postop day 2: Patient doing better today. Pain better controlled. NG tube still in place. Patient had extensive lyses of adhesions. Continue IV antibiotics and fluids. Encourage ambulation. Encourage incentive spirometer. Await further recommendations from surgery. Dehydration: Will continue IV fluids. Will monitor closely Anxiety: Will provide medication as needed Tobacco abuse: Will provide nicotine patch. Tobacco cessation addressed in detail. Anemia: Will monitor closely. Will check iron and B12 studies. Time Spent Managing Pts Care (In Minutes): 55
[2018-05-22 10:05] LABS: Ferritin 189.3 ng/mL (8-388); Transferrin 162 mg/dL (200-360)
[2018-05-22] MEDS: LORazepam 2 MG/ML VIAL IV PRN (22:08)
[2018-05-23] MEDS: MORPHINE 4 MG/ML SYR IV PRN ×6 (00:07→15:23)
[2018-05-23 06:07] LABS: Absolute Lymphocytes (CBC) 1.3 K/uL (0.7-4.9); Absolute Monocytes 1.3 K/uL (0.1-1.3); Absolute Neutrophil 12.1 K/uL (1.8-8.0); Basophils % 0.6 % (0-1.3); Eosinophils % 1.7 % (0-4.4); Lymphocytes % 8.3 % (15.3-44.8); MPV 7.7 fL (7.6-11.3); Monocytes % 8.7 % (3.3-12.3); RBC Red Blood Cell Count 5.06 M/uL (3.86-4.86)
[2018-05-23 06:29] LABS: BUN Blood Urea Nitrogen 3 mg/dL (7-18); Bicarbonate 21 mmol/L (21-32); Glucose Level 78 mg/dL (74-106); Potassium 3.3 mmol/L (3.5-5.1); Sodium Level 139 mmol/L (136-145)
[2018-05-23] MEDS: ONDANSETRON 4 MG/2 ML VIAL IV PRN ×2 (06:47→12:28)
[2018-05-23] MEDS: KCL 20 MEQ/100 mL IVPB 20 MEQ/100 ML BAG IV SCH ×2 (07:22→10:20)
[2018-05-23] MEDS: NA CHLORIDE 0.9% 1,000 ML IV SCH (08:05)
[2018-05-23] MEDS: ENOXAPARIN 40 MG/0.4 ML SQ SCH (10:20)
[2018-05-23] MEDS: PANTOPRAZOLE 40 MG INJ IVP SCH (10:21)
[2018-05-23] MEDS: NICOTINE 21 MG/PAT TD SCH (10:21)
[2018-05-23] MEDS: DOXYCYCLINE 100 MG in NA CHLORIDE 0.9% 100 ML IVPB SCH (10:30)
[2018-05-23] MEDS ORDERED: CYANOCOBALAMIN 1000MCG/ML INJ IM ONE (10:31)
--- NOTE | 2018-05-23 10:31 | P.PN ---
Subjective Date of Service: 05/23/18 Primary Care Provider: None Chief Complaint: Abdominal pain, nausea vomiting Subjective: Improving (NG tube no longer in place. Patient tolerating clear liquid diet. No bowel movement yet.) Physical Examination - Vital Signs Temperature: 98.3 F Blood Pressure: 137/72 Pulse: 87 Respirations: 18 Pulse Ox (%): 96 - Physical Exam General: Alert, In no apparent distress, Oriented x3, Cooperative HEENT: Atraumatic Neck: Supple Respiratory: Clear to auscultation bilaterally, Normal air movement Cardiovascular: Normal pulses, Regular rate/rhythm Gastrointestinal: Hypoactive, Soft and benign, Non-distended, No tenderness, No masses, No rebound, No guarding Musculoskeletal: No erythema, No tenderness, No warmth Integumentary: No tenderness/swelling, No erythema, No warmth, No cyanosis Neurological: Normal speech, Normal strength at 5/5 x4 extr, Normal tone, Normal affect - Studies Microbiology Data (last 24 hrs): 05/20/18 16:00 Clean Catch Urine [place] Count - Final 05/20/18 16:00 Clean Catch Urine - Final Medications List Reviewed: Yes Assessment & Plan Discharge Plan: Home Plan to discharge in: 48 Hours Physician Review Additional Text: Impression: Abdominal pain, intractable nausea and vomiting secondary to small bowel obstruction status post extensive lyses of adhesions complicated with cannabis hyperemesis syndrome, postop day 3 Dehydration Anxiety Tobacco abuse Anemia with iron and B12 deficiency Plan: Abdominal pain, intractable nausea and vomiting secondary to small bowel obstruction status post extensive lyses of adhesions complicated with cannabis hyperemesis syndrome, postop day 3: Patient doing better every day. NG tube removed yesterday. Patient tolerating clear liquid diet. Await further recommendations from surgery. Case discussed with surgery yesterday. Continue with IV antibiotic therapy. Encourage ambulation. Encourage incentive spirometer. Likely home in the next 2 days. Dehydration: Will continue IV fluids. Will monitor closely Anxiety: Will provide medication as needed Tobacco abuse: Will provide nicotine patch. Tobacco cessation addressed in detail. Anemia with iron and B12 deficiency: Patient will require iron and B12 supplementation at discharge. Time Spent Managing Pts Care (In Minutes): 55
[2018-05-23 11:11] VITALS: O2SAT 96
[2018-05-23] MEDS ORDERED: BISACODYL 10 MG RECTAL SUPP PR ONE (13:19)
--- NOTE | 2018-05-23 14:03 | P.DS ---
Admission Date: 05/20/18 Discharge Date: 05/23/18 Primary Care Provider: None Disposition: ROUTINE DISCHARGE Discharge Condition: GOOD Reason for Admission: Abdominal pain, nausea vomiting Consultations: Surgery-Dr. Zheng Procedures: CT scan: COMPARISON: May 19 2018 TECHNIQUE: Computed axial tomography of the abdomen and pelvis was obtained. 100 cc Isovue-300 is administered intravenously. Oral contrast was given. All CT scans are performed using dose optimization technique as appropriate and may include automated exposure control or mA/KV adjustment according to patient size. FINDINGS: The liver, spleen, pancreas, adrenals and kidneys appear unremarkable. The appendix is normal caliber. There is no evidence of diverticulitis Mild dilatation of jejunum and portion of the ileum. Mid and distal ileum are decompressed Small amount of ascites IMPRESSION: These findings likely indicate an obstruction in the region of the mid ileum Surgery: Date: 05/20/18 Preoperative diagnosis: Small-bowel obstruction Postoperative diagnosis: The same Primary procedure: Exploratory laparotomy, lysis of extensive intra-abdominal adhesions Anesthesia: General Estimated blood loss: Less than 10 cc Specimen: Cultures of peritoneum were taken Findings: Extensive intra-abdominal adhesions with small bowel obstruction Medical Problem List: Abdominal pain, intractable nausea and vomiting secondary to small bowel obstruction status post extensive lysis of adhesions complicated with cannabis hyperemesis syndrome with history of pelvic inflammatory disease Dehydration Anxiety Tobacco abuse Anemia with iron and B12 deficiency Brief History of Present Illness: 33-year-old female presented to emergency room with abdominal pain, nausea and vomiting. Patient reported abdominal pain, nausea and vomiting that started 2 days ago. She came to the ER yesterday. She was evaluated. She was told that she had a UTI. She was given antibiotics-doxycycline. Nausea and vomiting persisted. She was again seen in the ER late last night and again discharge. Today she continued to have abdominal pain mainly to the periumbilical region in the upper and lower quadrant. She rates the pain at 10/10. It is associated with nausea, vomiting. She is not able to keep anything down. She denies any fever , chest pain. She reports mild chills. Patient admits smoking marijuana sometimes 2 to 3 times a day. Patient smokes about a half a pack a day. In the ER patient evaluated. Initial white count 13.9, hemoglobin 11.4. Sodium 142, potassium 3.5, chloride 110, bicarb 19. BUN of 15, creatinine 0.8 with a GFR 72. Blood sugar 100. Lipase negative. Urinalysis negative. test negative CT scan reviewed yesterday showed no acute abnormality. No obstruction or lymphadenopathy noted. CT scan was ordered again in the emergency room. Patient was admitted for observation. When I saw the patient ER, she appeared stable. Pain improved with medication. Nausea vomiting also improved. As mentioned above patient smokes regularly including marijuana 2 to 3 times a day. She denies taking any other medication. Denies any other drug use. She does not drink alcohol. Hospital Course: Patient presented with abdominal pain, nausea and vomiting. Patient found to have small bowel obstruction. Patient was seen by surgery. Surgery recommended intervention. Patient had extensive lysis of adhesions. Surgery felt bowel obstruction likely related to her prior history of pelvic inflammatory disease. Patient also with cannabis hyperemesis syndrome. Postoperatively patient did well. She tolerated her diet. Pain improved. At discharge she will continue with doxycycline 100 mg twice daily for 7 more days. No heavy lifting, pushing or pulling is recommended. Pain medication will be provided by surgery. Recommendation to follow up with surgery within 1 week to follow up hospitalization and surgery. Patient found to have iron and B12 deficiency anemia. At discharge patient may continue with multi vitamin with iron and B12 daily. Recommend to recheck lab in 4 6 weeks to monitor progress. Tobacco cessation education will also be provided at discharge. Marijuana cessation education will be provided as well. Vital Signs/Physical Exam: Temp Pulse Resp BP Pulse Ox 98.3 F 87 18 137/72 96 05/23/18 10:31 05/23/18 10:31 05/23/18 10:31 05/23/18 10:31 05/23/18 10:31 General: Alert, In no apparent distress, Oriented x3, Cooperative HEENT: Atraumatic Neck: Supple Respiratory: Clear to auscultation bilaterally, Normal air movement Cardiovascular: Normal pulses, Regular rate/rhythm Gastrointestinal: Normal bowel sounds, Soft and benign, Non-distended, No tenderness, No masses, No rebound, No guarding Musculoskeletal: No erythema, No tenderness, No warmth Integumentary: No tenderness/swelling, No erythema, No warmth, No cyanosis Neurological: Normal speech, Normal strength at 5/5 x4 extr, Normal tone, Normal affect Laboratory Data at Discharge: WBC 15.1 K/uL (4.3-10.9) H D 05/23/18 05:56 Hgb 10.7 g/dL (12.0-15.0) L 05/23/18 05:56 Hct 33.0 % (36.0-45.0) L 05/23/18 05:56 Plt Count 390 K/uL (152-406) 05/23/18 05:56 Sodium 139 mmol/L (136-145) 05/23/18 05:56 Potassium 3.3 mmol/L (3.5-5.1) L 05/23/18 05:56 BUN 3 mg/dL (7-18) L 05/23/18 05:56 Creatinine 0.59 mg/dL (0.55-1.3) 05/23/18 05:56 Glucose 78 mg/dL (74-106) 05/23/18 05:56 Magnesium 2.0 mg/dL (1.8-2.4) 05/23/18 05:56 Total Bilirubin 0.5 mg/dL (0.2-1.0) 05/22/18 04:47 AST 14 U/L (15-37) L 05/22/18 04:47 ALT 18 U/L (12-78) 05/22/18 04:47 Alkaline Phosphatase 65 U/L (45-117) 05/22/18 04:47 Lipase 103 U/L (73-393) 05/20/18 15:15 Home Medications: NK [No Home Meds] 05/20/18 Patient Discharge Instructions: 1. Patient will need a follow up with surgery within 1 week to follow up this hospitalization. 2. Patient presented with abdominal pain, nausea and vomiting. Patient found to have small bowel obstruction. Patient was seen by surgery. Surgery recommended intervention. Patient had extensive lysis of adhesions. Surgery felt bowel obstruction likely related to her prior history of pelvic inflammatory disease. Patient also with cannabis hyperemesis syndrome. Postoperatively patient did well. She tolerated her diet. Pain improved. At discharge she will continue with doxycycline 100 mg twice daily for 7 more days. No heavy lifting, pushing or pulling is recommended. Pain medication will be provided by surgery. Recommendation to follow up with surgery within 1 week to follow up hospitalization and surgery. 3. Patient found to have iron and B12 deficiency anemia. At discharge patient may continue with multi vitamin with iron and B12 daily. Recommend to recheck lab in 4 6 weeks to monitor progress. 4. Tobacco cessation education will also be provided at discharge. Marijuana cessation education will be provided as well. Diet: Has per surgery Activity: No lifting more than 10 lbs Time spent managing pt's care (in minutes): 55
[2018-05-23 14:38] VITALS: TEMP 98.5
[2018-05-23 17:45] VITALS: BP 139/84
[2018-05-24] MEDS ORDERED: PANTOPRAZOLE 40MG TABLET PO SCH (06:30)
== END 2018-05-23 16:08 | disposition home or self-care (01) | DRG 337 ==
LOC: ER 13:07 → ERHOLD 17:21 → OBSVTOIN 17:21 → 2ND 19:59
PROVIDERS: ADMIT Family Medicine; ATTEND Family Medicine
PROC: 0DN80ZZ Release Small Intestine, Open Approach (ICD-10-PCS; 2018-05-20)
PROC: 0DNU0ZZ Release Omentum, Open Approach (ICD-10-PCS; 2018-05-20)
PROC: 0DNW0ZZ Release Peritoneum, Open Approach (ICD-10-PCS; principal; 2018-05-20 21:30)
DX: K56.50 Intestinal adhesions [bands], unspecified as to partial versus complete obstruction (principal); R11.2 Nausea with vomiting, unspecified; F12.188 Cannabis abuse with other cannabis-induced disorder; E86.0 Dehydration; F41.9 Anxiety disorder, unspecified; D50.9 Iron deficiency anemia, unspecified; D51.9 Vitamin B12 deficiency anemia, unspecified; F17.210 Nicotine dependence, cigarettes, uncomplicated
CPT/HCPCS: 36415; 74177; 80048; 80053; 80076; 80307; 81003; 81015; 81025; 82607; 82728; 83540; 83690; 83735; 84439; 84443; 84466; 85025; 87070; 87075; 87086; 87088; 87205; 96361; 96365; 96368; 96375; 99285; C9113; J0330; J0744; J1650; J2175; J2250; J2270; J2405; J2550; J2704; J2710; J3010; J3420; J7030; Q9967

== ENCOUNTER 2018-06-17 20:35 | Emergency (ER) | payer SELFPAY ==
[2018-06-17 21:25] LABS: Absolute Lymphocytes (CBC) 2.6 K/uL (0.7-4.9); Absolute Monocytes 0.6 K/uL (0.1-1.3); Absolute Neutrophil 3.5 K/uL (1.8-8.0); Basophils % 1.1 % (0-1.3); Eosinophils % 3.7 % (0-4.4); Hematocrit 32.4 % (36.0-45.0); Lymphocytes % 36.9 % (15.3-44.8); MPV 7.7 fL (7.6-11.3); Monocytes % 9.1 % (3.3-12.3); RBC Red Blood Cell Count 4.91 M/uL (3.86-4.86)
[2018-06-17 21:41] LABS: Albumin 3.9 g/dL (3.4-5.0); Bilirubin Direct 0.2 mg/dL (0-0.2); Bilirubin Total 0.3 mg/dL (0.2-1.0); Potassium 3.4 mmol/L (3.5-5.1); Protein, Total 7.1 g/dL (6.4-8.2)
[2018-06-17] MEDS ORDERED: MORPHINE 4 MG/ML SYR ONE (21:58)
[2018-06-17] MEDS ORDERED: ONDANSETRON 4 MG/2 ML VIAL ONE (21:58)
[2018-06-17 22:09] LABS: Urine Blood 2+ (NEG); Urine Glucose NEGATIVE (NEG); Urine Protein TRACE (NEG); Urine Specific Gravity 1.025 (1.005-1.030)
[2018-06-17 22:12] LABS: Blood Morphology Comment NOTED (NOT SEEN); Platelet Estimate ADEQ; Urine White Blood Cell Casts OK
[2018-06-17 22:13] LABS: Basophilic Stippling 1+; Hypochromasia 2+; Target Cells 2+
[2018-06-17] MEDS ORDERED: MAGNESIUM SULFATE 1 gm IVPB 1 GM/100 ML BAG IV ONE (23:49)
[2018-06-17] MEDS ORDERED: NA CHLORIDE 0.9% 1,000 ML ONE (23:49)
[2018-06-17] MEDS ORDERED: TAMSULOSIN 0.4 MG SR CAP ONE (23:49)
[2018-06-17] MEDS ORDERED: CEFTRIAXONE/SWI 1gm 1 GM/10 ML SYR ONE (23:50)
--- NOTE | 2018-06-17 23:57 | EDPHYS ---
Physician Documentation [facility] Name: Mari Chicas Age: 33 yrs Sex: Female : 1985 Arrival Date: 06/17/2018 Time: 20:39 Bed 15 Private MD: ED Physician Mateusz Weller HPI: 06/17 20:58 This 33 yrs old Female presents to ER via Ambulatory with complaints of cp Abdominal Pain, Back Pain, Vomiting. 20:58 The patient presents with abdominal pain right lower quadrant. Onset: The cp symptoms/episode began/occurred today. The symptoms radiate to right flank and right lower back. Associated signs and symptoms: Pertinent positives: nausea and vomiting, Pertinent negatives: constipation, diarrhea, dysuria, fever, vaginal discharge. Severity of pain: in the emergency department the pain has improved moderately. 21:00 Patient reports having surgery last month by DR Zheng to remove intraabdominal scar cp tissue after having bowel obstruction. 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 - Social history:: Smoking status: Patient uses tobacco products, denies chronic smoking, but will smoke occasionally. - Ebola Screening: : No symptoms or risks identified at this time. ROS: 21:00 Constitutional: Negative for body aches, chills, fever, poor PO intake. cp 21:00 Eyes: Negative for injury, pain, redness, and discharge. cp 21:00 ENT: Negative for drainage from ear(s), ear pain, sore throat, difficulty swallowing, difficulty handling secretions. 21:00 Cardiovascular: Negative for chest pain, edema, palpitations. 21:00 Respiratory: Negative for cough, shortness of breath, wheezing. 21:00 Abdomen/GI: Positive for abdominal pain, nausea and vomiting, Negative for diarrhea, constipation, black/tarry stool, rectal bleeding. 21:00 Back: Positive for flank pain, on the right, Negative for injury or acute deformity, decreased range of motion. 21:00 : Negative for urinary symptoms, vaginal bleeding, vaginal discharge. 21:00 Skin: Negative for cellulitis, rash. 21:00 Neuro: Negative for altered mental status, headache, weakness. 21:00 All other systems are negative. Exam: 21:10 Constitutional: The patient appears in no acute distress, alert, awake, non-toxic, well cp developed, well nourished, uncomfortable. 21:10 Head/Face: Normocephalic, atraumatic. cp 21:10 Eyes: Periorbital structures: appear normal, Conjunctiva: normal, no exudate, no injection, Sclera: no appreciated abnormality, Lids and lashes: appear normal, bilaterally. 21:10 ENT: External ear(s): are unremarkable, Nose: is normal, Mouth: Lips: moist, Oral mucosa: pink and intact, moist, Posterior pharynx: is normal, airway is patent, no erythema, no exudate. 21:10 Neck: ROM/movement: is normal, is supple, without pain, no range of motions limitations, no nuchal rigidity. 21:10 Chest/axilla: Inspection: normal, Palpation: is normal, no crepitus, no tenderness. 21:10 Cardiovascular: Rate: normal, Rhythm: regular, Edema: is not appreciated, JVD: is not appreciated. 21:10 Respiratory: the patient does not display signs of respiratory distress, Respirations: normal, no use of accessory muscles, no retractions, no splinting, no tachypnea, Breath sounds: are clear throughout, no decreased breath sounds, no stridor, no wheezing. 21:10 Abdomen/GI: Inspection: scar(s), are noted in the midline, Bowel sounds: active, all quadrants, Palpation: soft, in all quadrants, moderate abdominal tenderness, in the right lower quadrant, rebound tenderness, is not appreciated, involuntary guarding, is not appreciated. 21:10 Back: CVA tenderness, is absent. 21:10 Skin: cellulitis, is not appreciated, no rash present. Vital Signs: 20:45 BP 144 / 68; Pulse 98; Resp 20 S; Temp 99(O); Pulse Ox 98% on R/A; Weight 63.5 kg (R); cc3 Height 5 ft. 6 in. (167.64 cm) (R); Pain 7/10; 21:30 BP 126 / 65; Pulse 67; Resp 20 S; Pulse Ox 99% on R/A; cc3 22:25 BP 125 / 73; Pulse 68; Resp 19 S; Pulse Ox 99% on R/A; 3 23:30 BP 112 / 59; Pulse 65; Resp 17 S; Pulse Ox 100% on R/A; 3 06/18 00:06 BP 117 / 76; Pulse 62; Resp 17 S; Pulse Ox 99% on R/A; 3 06/17 20:45 Body Mass Index 22.60 (63.50 kg, 167.64 cm) 3 MDM: 06/17 20:45 Patient medically screened. cp 22:00 Differential diagnosis: appendicitis, bowel obstruction, cholecystitis, Cholelithiasis, cp diverticulitis, Ectopic , Endometriosis, gastritis, non-specific abd pain, Pelvic Inflammatory Disease, Pyelonephritis, Ureterolithiasis, urinary tract infection. 23:55 Data reviewed: vital signs, nurses notes, lab test result(s), radiologic studies, CT cp scan. 23:55 Counseling: I had a detailed discussion with the patient and/or guardian regarding: the cp historical points, exam findings, and any diagnostic results supporting the discharge/admit diagnosis, lab results, radiology results, to return to the emergency department if symptoms worsen or persist or if there are any questions or concerns that arise at home. Response to treatment: the patient's symptoms have markedly improved after treatment, and as a result, I will discharge patient. ED course: VSS. Discussed results of CT abdomen/pelvis that showed right UVJ calculus. Pain improved with meds. Will discharge to home for continued monitoring. 06/17 20:58 Order name: Basic Metabolic Panel; Complete Time: 21:53 cp 06/17 23:53 Interpretation: Normal except: K 3.4; CL 110; GFR 86. cp 06/17 20:58 Order name: CBC with Diff; Complete Time: 23:34 cp 06/17 23:54 Interpretation: Normal except: RBC 4.91; HGB 10.4; HCT 32.4; MCV 66.2; MCH 21.1; MCHC cp 31.9; RDW 15.8. 06/17 20:58 Order name: Creatinine for Radiology; Complete Time: 21:53 cp 06/17 20:58 Order name: Hepatic Function; Complete Time: 21:53 cp 06/17 20:58 Order name: Lipase; Complete Time: 21:53 cp 06/17 21:53 Interpretation: Abnormal: LIP 564. cp 06/17 21:25 Order name: Urine Dipstick--Ancillary (enter results); Complete Time: 23:34 ar5 06/17 23:54 Interpretation: Normal except: UBLD 2+; UESTR TRACE. cp 06/17 21:25 Order name: Urine --Ancillary (enter results); Complete Time: 23:34 ar5 06/17 21:35 Order name: CBC Smear Scan; Complete Time: 23:34 EDMS 06/17 21:59 Order name: CT Abd/Pelvis - W/Contrast: no oral contrast cp 06/17 23:35 Order name: Urine Microscopic Only; Complete Time: 00:33 cp 06/17 20:58 Order name: IV Saline Lock; Complete Time: 21:10 cp 06/17 20:58 Order name: Labs collected and sent; Complete Time: 21:10 cp 06/17 20:58 Order name: Urine Dipstick-Ancillary (obtain specimen); Complete Time: 21:24 cp 06/17 20:58 Order name: Urine Test (obtain specimen); Complete Time: 21:24 cp Administered Medications: 21:48 Drug: morphine 4 mg Route: IVP; Site: right forearm; cc3 22:25 Follow up: Response: No adverse reaction; Pain is decreased 3 21:50 Drug: Zofran 4 mg Route: IVP; Site: right forearm; cc3 22:25 Follow up: Response: No adverse reaction; Nausea is decreased cc3 23:40 Drug: Flomax 0.4 mg Route: PO; 3 06/18 00:04 Follow up: Response: No adverse reaction [facility] 06/17 23:40 Drug: NS 0.9% 1000 ml Route: IV; Rate: 1 bolus; Site: right forearm; cc3 23:42 Drug: Rocephin 1 grams Route: IV; Rate: calculated rate; Site: right forearm; cc3 06/18 00:04 Follow up: Response: No adverse reaction [facility] 06/17 23:47 Drug: Magnesium Sulfate 1 grams Route: IVPB; Infused Over: 1 hrs; Site: right forearm; cc3 06/18 00:50 Follow up: Response: No adverse reaction; IV Status: Completed infusion; IV Intake: cc3 100ml 00:45 Drug: Flagyl 2 grams Route: PO; cc3 00:55 Follow up: Response: No adverse reaction cc3 Disposition: 03:30 Co-signature as Attending Physician, Mateusz Weller MD. Disposition: 06/17/18 23:56 Discharged to Home. Impression: Calculus of kidney and ureter - Right. - Condition is Stable. - Discharge Instructions: Kidney Stones. - Prescriptions for Zofran 4 mg Oral Tablet - take 1 tablet by ORAL route every 12 hours As needed; 20 tablet. Flomax 0.4 mg Oral Capsule, Sust. Release 24 hr - take 1 capsule by ORAL route once daily As needed 1/2 hour following the same meal each day; 5 capsule. Tramadol 50 mg Oral Tablet - take 1 tablet by ORAL route every 8 hours as needed. no driving while taking medication; 20 tablet. Cipro 500 mg Oral Tablet - take 1 tablet by ORAL route every 12 hours for 7 days; 14 tablet. - Medication Reconciliation Form, Thank You Letter, Antibiotic Education, Prescription Opioid Use form. - Follow up: Braydon Funez MD; When: 2 - 3 days; Reason: pain continues. - Problem is new. - Symptoms have improved. Signatures: Dispatcher [employer] EDMS Edilberto Myers PA PA cp Starr, Gregory, MD MD Ana Tello cc3 Corrections: (The following items were deleted from the chart) 00:56 06/17 23:56 06/17/2018 23:56 Discharged to Home. Impression: Calculus of kidney and cc3 ureter - Right. Condition is Stable. Prescriptions for Zofran 4 mg Oral Tablet - take 1 tablet by ORAL route every 12 hours As needed; 20 tablet, Flomax 0.4 mg Oral Capsule, Sust. Release 24 hr - take 1 capsule by ORAL route once daily As needed 1/2 hour following the same meal each day; 5 capsule, Tramadol 50 mg Oral Tablet - take 1 tablet by ORAL route every 8 hours as needed. no driving while taking medication; 20 tablet. and Forms are Medication Reconciliation Form, Thank You Letter, Antibiotic Education, Prescription Opioid Use. Follow up: Braydon Funez; When: 2 - 3 days; Reason: pain continues. Problem is new. Symptoms have improved. cp
--- NOTE | 2018-06-17 23:57 | ER ---
Nurse's Notes [facility] Name: Mari Chicas Age: 33 yrs Sex: Female : 1985 Arrival Date: 06/17/2018 Time: 20:39 Bed 15 Private MD: Diagnosis: Calculus of kidney and ureter-Right Presentation: 06/17 20:45 Presenting complaint: Patient states: bilateral lower abdominal pain radiating to the cc3 right flank since today afternoon with vomiting episode once. Transition of care: patient was not received from another setting of care. Onset of symptoms was June 17, 2018. Risk Assessment: Do you want to hurt yourself or someone else? Patient reports no desire to harm self or others. Initial Sepsis Screen: Does the patient meet any 2 criteria? No. Patient's initial sepsis screen is negative. Does the patient have a suspected source of infection? No. Patient's initial sepsis screen is negative. Care prior to arrival: None. 20:45 Method Of Arrival: Ambulatory cc3 20:45 Acuity: FILI 3 cc3 Triage Assessment: 20:45 General: Appears in no apparent distress. uncomfortable, Behavior is calm, cooperative, cc3 appropriate for age. Pain: Complains of pain in lower abdomen, right flank Pain radiates to right flank Pain currently is 7 out of 10 on a pain scale. Quality of pain is described as aching. EENT: No signs and/or symptoms were reported regarding the EENT system. Neuro: Level of Consciousness is awake, alert, obeys commands, Oriented to person, place, time, situation, Appropriate for age. Cardiovascular: Denies chest pain. Respiratory: Airway is patent Respiratory effort is even, unlabored, Respiratory pattern is regular, symmetrical. GI: Abdomen is round non-distended, noted to have post-op scar. : No signs and/or symptoms were reported regarding the genitourinary system. Derm: post-op scar on lower abdomen area. Musculoskeletal: Circulation, motion, and sensation intact. Range of motion: intact in all extremities. 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 - Social history:: Smoking status: Patient uses tobacco products, denies chronic smoking, but will smoke occasionally. - Ebola Screening: : No symptoms or risks identified at this time. Screenin:45 Abuse screen: Denies threats or abuse. Denies injuries from another. Nutritional cc3 screening: No deficits noted. Tuberculosis screening: No symptoms or risk factors identified. Fall Risk Ambulatory Aid- None/Bed Rest/Nurse Assist (0 pts). Gait- Normal/Bed Rest/Wheelchair (0 pts) Mental Status- Oriented to own ability (0 pts). Assessment: 20:45 GI: Bowel sounds present X 4 quads. Abd is soft and non tender X 4 quads. cc3 21:30 Reassessment: Patient appears in no apparent distress at this time. Patient and/or cc3 family updated on plan of care and expected duration. Pain level reassessed. Patient is alert, oriented x 3, equal unlabored respirations, skin warm/dry/pink. 22:24 Reassessment: Patient appears in no apparent distress at this time. Patient and/or cc3 family updated on plan of care and expected duration. Pain level reassessed. Patient is alert, oriented x 3, equal unlabored respirations, skin warm/dry/pink. Patient came back from CT scan department, awaiting result. 23:30 Reassessment: Patient appears in no apparent distress at this time. Patient and/or cc3 family updated on plan of care and expected duration. Pain level reassessed. Patient is alert, oriented x 3, equal unlabored respirations, skin warm/dry/pink. 23:56 Reassessment: Patient was ordered for discharge home but after the magnesium sulfate cc3 infusion over an hour. 06/18 00:05 Reassessment: Patient appears in no apparent distress at this time. Patient and/or cc3 family updated on plan of care and expected duration. Pain level reassessed. Patient is alert, oriented x 3, equal unlabored respirations, skin warm/dry/pink. 00:55 Reassessment: Patient appears in no apparent distress at this time. Patient and/or cc3 family updated on plan of care and expected duration. Pain level reassessed. Patient is alert, oriented x 3, equal unlabored respirations, skin warm/dry/pink. PA Page discharged the patient home with prescription given. IV cannula removed and patient left ER vitally stable and ambulatory. Patient states feeling better. Patient states symptoms have improved. Vital Signs: 06/17 20:45 BP 144 / 68; Pulse 98; Resp 20 S; Temp 99(O); Pulse Ox 98% on R/A; Weight 63.5 kg (R); cc3 Height 5 ft. 6 in. (167.64 cm) (R); Pain 7/10; 21:30 BP 126 / 65; Pulse 67; Resp 20 S; Pulse Ox 99% on R/A; cc3 22:25 BP 125 / 73; Pulse 68; Resp 19 S; Pulse Ox 99% on R/A; cc3 23:30 BP 112 / 59; Pulse 65; Resp 17 S; Pulse Ox 100% on R/A; cc3 06/18 00:06 BP 117 / 76; Pulse 62; Resp 17 S; Pulse Ox 99% on R/A; cc3 06/17 20:45 Body Mass Index 22.60 (63.50 kg, 167.64 cm) cc3 ED Course: 06/17 20:39 Patient arrived in ED. es 20:40 Ana Tello is Primary Nurse. cc3 20:42 Edilberto Myers PA is PHCP. cp 20:43 Mateusz Weller MD is Attending Physician. cp 20:45 Arm band placed on right wrist. Patient notified of wait time. cc3 20:45 Patient has correct armband on for positive identification. Bed in low position. Call cc3 light in reach. Side rails up X 1. Pulse ox on. NIBP on. 20:52 Triage completed. cc3 21:05 Inserted saline lock: 20 gauge in right wrist, using aseptic technique. Blood collected.ds4 21:10 Lipase Sent. ds4 21:10 Hepatic Function Sent. ds4 21:10 Creatinine for Radiology Sent. ds4 21:10 CBC with Diff Sent. ds4 21:10 Basic Metabolic Panel Sent. ds4 22:[address] via wheelchair. eh 22:12 CT completed. Patient tolerated procedure well. eh 22:16 Patient moved back from CT. eh 22:21 CT Abd/Pelvis - W/Contrast: no oral contrast In Process Unspecified. EDMS 23:56 Braydon Funez MD is Referral Physician. cp 06/18 00:55 No provider procedures requiring assistance completed. IV discontinued, intact, cc3 bleeding controlled, No redness/swelling at site. Pressure dressing applied. Administered Medications: 06/17 21:48 Drug: morphine 4 mg Route: IVP; Site: right forearm; cc3 22:25 Follow up: Response: No adverse reaction; Pain is decreased cc3 21:50 Drug: Zofran 4 mg Route: IVP; Site: right forearm; cc3 22:25 Follow up: Response: No adverse reaction; Nausea is decreased cc3 23:40 Drug: Flomax 0.4 mg Route: PO; cc3 06/18 00:04 Follow up: Response: No adverse reaction cc3 06/17 23:40 Drug: NS 0.9% 1000 ml Route: IV; Rate: 1 bolus; Site: right forearm; cc3 23:42 Drug: Rocephin 1 grams Route: IV; Rate: calculated rate; Site: right forearm; cc3 06/18 00:04 Follow up: Response: No adverse reaction cc3 06/17 23:47 Drug: Magnesium Sulfate 1 grams Route: IVPB; Infused Over: 1 hrs; Site: right forearm; cc3 06/18 00:50 Follow up: Response: No adverse reaction; IV Status: Completed infusion; IV Intake: cc3 100ml 00:45 Drug: Flagyl 2 grams Route: PO; cc3 00:55 Follow up: Response: No adverse reaction cc3 Intake: 00:50 IV: 100ml; Total: 100ml. cc3 Outcome: 06/17 23:56 Discharge ordered by . anabelle 06/18 00:55 Discharged to home ambulatory. cc3 Condition: stable Discharge instructions given to patient, Instructed on discharge instructions, follow up and referral plans. medication usage, Demonstrated understanding of instructions, follow-up care, medications, Prescriptions given X 4. 00:56 Patient left the ED. cc3 Signatures: Dispatcher [employer] EDPeggy Temple Ervin eh Swanson, Donovan ds4 Edilberto Myers PA PA cp Cordel, Charlene cc3 Corrections: (The following items were deleted from the chart) 06/17 21:58 21:30 Pulse 63bpm; Resp 20bpm; Spontaneous; Pulse Ox 99% RA; cc3 cc3
[2018-06-18 00:25] LABS: Urine Culture Reflex Order REFLEXED; Urine Mucus 2+ /HPF (NONE SEEN); Urine RBC >50 /HPF (NONE SEEN); Urine Trichomonas PRESENT (NONE SEEN)
[2018-06-18 00:26] LABS: Urine Bacteria <20 /HPF (<20)
[2018-06-18] MEDS ORDERED: metroNIDAZOLE 500 MG TABLET ONE (00:52)
[2018-06-18 01:05] VITALS: TEMP 99
[2018-06-18 01:17] VITALS: BP 117/76; O2SAT 99
--- NOTE | 2018-06-18 07:40 | RAD REPORT ---
EXAM DESCRIPTION: CT - Abdomen Pelvis W Contrast - 06/18/2018 6:07 am CLINICAL HISTORY: Bilateral abdominal pain radiating to the right flank, vomiting, history of slices of adhesions May 20, 2018 COMPARISON: None. TECHNIQUE: Biphasic, helical CT imaging of the abdomen and pelvis was performed following 100 ml non -ionic IV contrast. No oral contrast administered. All CT scans are performed using dose optimization technique as appropriate and may include automated exposure control or mA/KV adjustment according to patient size. FINDINGS: No suspicious findings in the lung bases. The liver, spleen, and pancreas show no suspicious findings. Gallbladder and biliary tree are also wi thout suspicious finding. Mild to moderate right-sided hydronephrosis and hydroureter secondary to a 2-3 mm calcification at th e right UVJ. Right-sided function is delayed. Right kidney is mildly edematous. A 4 millimeter nonobs tructing calculus lower pole right kidney. No acute left-sided renal or ureteral finding. Pyelonephri tis is not suspected. No suspicious parenchymal mass. Mostly contracted urinary bladder shows no susp icious finding. No adrenal abnormalities. No gastric dilatation or wall thickening. Prominent fluid-filled distal small bowel loops are present without dilatation. No acute colon finding. No appendicitis. No free air or pneumatosis. Small mese nteric lymph nodes are present. Free fluid is present in the cul de sac and along the anterior superi or margin of the partially contracted urinary bladder. This is upper normal for physiologic fluid. Re active fluid from enteritis or fluid related to an ovarian cyst rupture would be possible. No uterine abnormality seen. Bilateral ovarian fullness and heterogeneity. There is a 2.2 cm cyst present on th e right ovary. No fallopian tube dilatation suspected. No mass or bulky lymphadenopathy. Small fat o nly umbilical hernia is present. No suspicious bony findings. IMPRESSION: The patient has mild to moderate right-sided hydronephrosis and hydroureter secondary to a 2-3 mm right UVJ calculus. This is likely the primary source for patient's symptoms. Patient also has a few fluid filled mildly prominent distal small bowel loops as well as free fluid i n the pelvis. Small mesenteric lymph nodes are present. Patient could have a concurrent enteritis. Prominent right ovary with 2.2 centimeter cyst. Free fluid related to cyst rupture would be possible. No free air, abscess or surgically emergent finding identifiable. Additional nonacute findings detailed in the body of the report.
== END 2018-06-18 00:56 | disposition home or self-care (01) ==
LOC: ER 20:35
DX: N20.2 Calculus of kidney with calculus of ureter (principal); Z88.5 Allergy status to narcotic agent; Z72.0 Tobacco use
CPT/HCPCS: 36415; 74177; 80048; 80076; 81003; 81015; 81025; 83690; 85025; 87086; 87088; 96365; 96375; 99284; J0696; J2405; J3475; J7030; Q9967

== ENCOUNTER 2018-10-31 21:44 | Emergency (ER) | payer SELFPAY ==
[2018-10-31 22:35] LABS: Urine Blood 2+ (NEG); Urine Glucose NEGATIVE (NEG); Urine Protein NEGATIVE (NEG)
[2018-10-31] MEDS ORDERED: KETOROLAC 30 MG/ML INJ ONE (22:54)
[2018-10-31 22:59] LABS: Absolute Lymphocytes (CBC) 2.4 K/uL (0.7-4.9); Absolute Monocytes 1.4 K/uL (0.1-1.3); Absolute Neutrophil 11.3 K/uL (1.8-8.0); Basophils % 0.8 % (0-1.3); Eosinophils % 0.7 % (0-4.4); Hematocrit 34.6 % (36.0-45.0); Lymphocytes % 15.7 % (15.3-44.8); MPV 7.1 fL (7.6-11.3); Monocytes % 8.9 % (3.3-12.3); RBC Red Blood Cell Count 5.36 M/uL (3.86-4.86)
[2018-10-31 23:16] LABS: Potassium 3.8 mmol/L (3.5-5.1)
[2018-10-31] MEDS ORDERED: ONDANSETRON 4 MG/2 ML VIAL ONE (23:22)
[2018-11-01] MEDS ORDERED: MAGNESIUM SULFATE 1 gm IVPB 1 GM/100 ML BAG IV ONE (02:17)
[2018-11-01] MEDS ORDERED: TAMSULOSIN 0.4 MG SR CAP ONE (02:17)
--- NOTE | 2018-11-01 02:22 | ER ---
Nurse's Notes [facility] Name: Mari Chicas Age: 33 yrs Sex: Female : 1985 Arrival Date: 10/31/2018 Time: 21:47 Bed 24 Private MD: Diagnosis: Calculus of kidney and ureter Presentation: 10/31 21:53 Presenting complaint: Patient states: Right flank pain since yesterday. Transition of aj care: patient was not received from another setting of care. Onset of symptoms was October 30, 2018. Risk Assessment: Do you want to hurt yourself or someone else? Patient reports no desire to harm self or others. Initial Sepsis Screen: Does the patient meet any 2 criteria? No. Patient's initial sepsis screen is negative. Does the patient have a suspected source of infection? No. Patient's initial sepsis screen is negative. Care prior to arrival: None. 21:53 Method Of Arrival: Ambulatory aj 21:53 Acuity: FILI 3 aj Triage Assessment: 21:54 General: Appears in no apparent distress. uncomfortable, Behavior is calm, cooperative, aj appropriate for age. Pain: Complains of pain in posterior aspect of right lateral abdomen and anterior aspect of right lateral abdomen. Neuro: Level of Consciousness is awake, alert, obeys commands, Oriented to person, place, time, situation, Appropriate for age. Respiratory: Airway is patent Respiratory effort is even, unlabored, Respiratory pattern is regular, symmetrical. : Reports pain in right flank(s). Derm: Skin is intact, is healthy with good turgor, Skin is pink, warm \T\ dry. normal. 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 - Social history:: Smoking status: Patient/guardian denies using tobacco. - Ebola Screening: : Patient negative for fever greater than or equal to 101.5 degrees Fahrenheit, and additional compatible Ebola Virus Disease symptoms Patient denies exposure to infectious person Patient denies travel to an Ebola-affected area in the 21 days before illness onset No symptoms or risks identified at this time. Screenin:17 Abuse screen: Denies threats or abuse. Denies injuries from another. Nutritional ca1 screening: No deficits noted. Tuberculosis screening: No symptoms or risk factors identified. Fall Risk None identified. Assessment: 22:17 General: Appears in no apparent distress. uncomfortable, Behavior is calm, cooperative, ca1 appropriate for age. Pain: Complains of pain in right low back Pain radiates to anterior aspect of right lateral abdomen and posterior aspect of right lateral abdomen Pain currently is 8 out of 10 on a pain scale. Quality of pain is described as pressure, Pain began 1500 today. Neuro: Level of Consciousness is awake, alert, obeys commands, Oriented to person, place, time, situation. Cardiovascular: Heart tones S1 S2 present Capillary refill < 3 seconds Patient's skin is warm and dry. Respiratory: Airway is patent Respiratory effort is even, unlabored, Respiratory pattern is regular, symmetrical, Breath sounds are clear bilaterally. GI: Abdomen is round non-distended, Bowel sounds present X 4 quads. Abd is soft and non tender X 4 quads. GI: Reports nausea. : Urine is clear. EENT: No deficits noted. No signs and/or symptoms were reported regarding the EENT system. Derm: Skin is intact, is healthy with good turgor, Skin is pink, warm \T\ dry. Musculoskeletal: Circulation, motion, and sensation intact. Capillary refill < 3 seconds, Range of motion: intact in all extremities. 22:40 Reassessment: patient sent to ct scan via wheelchair. mg2 23:57 Reassessment: Patient appears in no apparent distress at this time. Patient and/or mg2 family updated on plan of care and expected duration. Pain level reassessed. Patient is alert, oriented x 3, equal unlabored respirations, skin warm/dry/pink. Patient states feeling better. 11/01 02:41 Reassessment: patient up for discharge after the infusion. mg2 03:17 Reassessment: Patient states feeling better. Patient states symptoms have improved. mg2 Vital Signs: 10/31 21:54 BP 124 / 74; Pulse 76; Resp 19; Temp 98.0; Pulse Ox 100% on R/A; Weight 72.57 kg; aj Height 5 ft. 6 in. (167.64 cm); 23:57 BP 110 / 62; Pulse 70; Resp 18; Pulse Ox 100% on R/A; mg2 11/01 00:30 BP 114 / 65; Pulse 78; Resp 17 S; Pulse Ox 100% on R/A; ca1 01:38 BP 118 / 67; Pulse 60; Resp 18; Temp 98; Pulse Ox 100% on R/A; Pain 0/10; mg2 03:17 BP 120 / 78; Pulse 60; Resp 18; Temp 98; Pulse Ox 100% on R/A; Pain 0/10; mg2 10/31 21:54 Body Mass Index 25.82 (72.57 kg, 167.64 cm) aj ED Course: 10/31 21:47 Patient arrived in ED. es 21:54 Triage completed. aj 21:54 Arm band placed on left wrist. Patient placed in waiting room, Patient notified of wait aj time. 22:03 Radiology exam delayed due to test not completed at this time. nj 22:14 Akash Whitman, JESSIE is Primary Nurse. mg2 22:14 Jayne Taveras FNP-C is PHCP. kb 22:14 Larry Bustos MD is Attending Physician. kb 22:17 Patient has correct armband on for positive identification. Placed in gown. Bed in low ca1 position. Call light in reach. Side rails up X 1. Pulse ox on. NIBP on. Warm blanket given. 22:17 No provider procedures requiring assistance completed. ca1 22:55 CT Stone Protocol In Process Unspecified. EDMS 22:56 Inserted saline lock: 22 gauge in right forearm, using aseptic technique. Blood mg2 collected. 11/01 03:17 IV discontinued, intact, bleeding controlled, No redness/swelling at site. Pressure mg2 dressing applied. Administered Medications: 10/31 22:56 Drug: TORadol 30 mg Route: IVP; Site: right forearm; mg2 11/01 01:06 Follow up: Response: No adverse reaction; Marked relief of symptoms mg2 10/31 23:12 Drug: Zofran 4 mg Route: IVP; Site: right forearm; mg2 11/01 01:06 Follow up: Response: No adverse reaction; Marked relief of symptoms mg2 02:06 Drug: Flomax 0.4 mg Route: PO; mg2 03:16 Follow up: Response: No adverse reaction; Marked relief of symptoms mg2 02:06 Drug: Magnesium Sulfate 1 grams Route: IVPB; Infused Over: 1 hrs; Site: right forearm; mg2 03:16 Follow up: Response: No adverse reaction; IV Status: Completed infusion mg2 02:32 Drug: Zofran 4 mg Route: IVP; Site: right forearm; mg2 03:16 Follow up: Response: No adverse reaction; Marked relief of symptoms mg2 02:34 Drug: fentaNYL (PF) 50 mcg Route: IVP; Site: right forearm; mg2 03:16 Follow up: Response: No adverse reaction; Marked relief of symptoms mg2 Outcome: 02:21 Discharge ordered by MD. dumont 03:18 Discharged to home ambulatory. mg2 03:18 Condition: stable 03:18 Discharge instructions given to patient, Instructed on discharge instructions, follow up and referral plans. medication usage, Demonstrated understanding of instructions, follow-up care, medications, Prescriptions given X 4. 03:18 Patient left the ED. mg2 Signatures: Dispatcher [employer] Jayne Quezada, VANIA-C EXTENSION SERVICE ADVISOR-Guadalupe Torres RN RN Peggy Rea Nathan nj Gardose, Michele, RN RN mg2 Grisel Bautista RN RN ca1
--- NOTE | 2018-11-01 02:22 | EDPHYS ---
Physician Documentation [facility] Name: Mari Chicas Age: 33 yrs Sex: Female : 1985 Arrival Date: 10/31/2018 Time: 21:47 Bed 24 Private MD: ED Physician Larry Bustos HPI: 11/01 00:52 This 33 yrs old Female presents to ER via Ambulatory with complaints of Flank kb Pain. 00:52 The patient complains of pain in the right flank. The pain does not radiate. Onset: The kb symptoms/episode began/occurred today. Modifying factors: The symptoms are alleviated by nothing. the symptoms are aggravated by nothing. Associated signs and symptoms: The patient has no apparent associated signs or symptoms. Severity of pain: At its worst the pain was moderate in the emergency department the pain is unchanged. The patient has experienced similar episodes in the past, a few times, today's symptoms are similar, to previous kidney stone. The patient has not recently seen a physician. 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 - Social history:: Smoking status: Patient/guardian denies using tobacco. - Ebola Screening: : Patient negative for fever greater than or equal to 101.5 degrees Fahrenheit, and additional compatible Ebola Virus Disease symptoms Patient denies exposure to infectious person Patient denies travel to an Ebola-affected area in the 21 days before illness onset No symptoms or risks identified at this time. ROS: 11/01 00:52 Constitutional: Negative for fever, chills, and weight loss, Neck: Negative for injury, kb pain, and swelling, Cardiovascular: Negative for chest pain, palpitations, and edema, Respiratory: Negative for shortness of breath, cough, wheezing, and pleuritic chest pain, Abdomen/GI: Negative for abdominal pain, nausea, vomiting, diarrhea, and constipation, : Negative for injury, bleeding, discharge, and swelling, MS/Extremity: Negative for injury and deformity, Skin: Negative for injury, rash, and discoloration, Neuro: Negative for headache, weakness, numbness, tingling, and seizure. Back: Positive for flank pain, on the right. Exam: 00:52 Constitutional: This is a well developed, well nourished patient who is awake, alert, kb and in no acute distress. Head/Face: Normocephalic, atraumatic. Chest/axilla: Normal chest wall appearance and motion. Nontender with no deformity. No lesions are appreciated. Cardiovascular: Regular rate and rhythm with a normal S1 and S2. No gallops, murmurs, or rubs. Normal PMI, no JVD. No pulse deficits. Respiratory: Lungs have equal breath sounds bilaterally, clear to auscultation and percussion. No rales, rhonchi or wheezes noted. No increased work of breathing, no retractions or nasal flaring. Abdomen/GI: Soft, non-tender, with normal bowel sounds. No distension or tympany. No guarding or rebound. No evidence of tenderness throughout. Skin: Warm, dry with normal turgor. Normal color with no rashes, no lesions, and no evidence of cellulitis. MS/ Extremity: Pulses equal, no cyanosis. Neurovascular intact. Full, normal range of motion. Neuro: Awake and alert, GCS 15, oriented to person, place, time, and situation. Cranial nerves II-XII grossly intact. Motor strength 5/5 in all extremities. Sensory grossly intact. Cerebellar exam normal. Normal gait. 00:52 Back: pain, is absent, ROM is normal, CVA tenderness, that is moderate, is noted on the right. Vital Signs: 10/31 21:54 BP 124 / 74; Pulse 76; Resp 19; Temp 98.0; Pulse Ox 100% on R/A; Weight 72.57 kg; aj Height 5 ft. 6 in. (167.64 cm); 23:57 BP 110 / 62; Pulse 70; Resp 18; Pulse Ox 100% on R/A; mg2 11 00:30 BP 114 / 65; Pulse 78; Resp 17 S; Pulse Ox 100% on R/A; ca1 01:38 BP 118 / 67; Pulse 60; Resp 18; Temp 98; Pulse Ox 100% on R/A; Pain 0/10; mg2 03:17 BP 120 / 78; Pulse 60; Resp 18; Temp 98; Pulse Ox 100% on R/A; Pain 0/10; mg2 10/31 21:54 Body Mass Index 25.82 (72.57 kg, 167.64 cm) aj MDM: 10/31 22:16 Patient medically screened. kb 11/01 00:53 Data reviewed: vital signs, nurses notes. Data interpreted: Pulse oximetry: on room air kb is 100 %. Interpretation: normal. 02:21 Counseling: I had a detailed discussion with the patient and/or guardian regarding: the kb historical points, exam findings, and any diagnostic results supporting the discharge/admit diagnosis, lab results, radiology results, the need for outpatient follow up, a urologist, to return to the emergency department if symptoms worsen or persist or if there are any questions or concerns that arise at home. 10/31 22:25 Order name: CBC with Diff; Complete Time: 23:04 kb 10/31 22:25 Order name: Basic Metabolic Panel; Complete Time: 23:41 kb 10/31 21:53 Order name: CT Stone Protocol 10/31 22:27 Order name: Urine Dipstick--Ancillary (enter results); Complete Time: 22:37 mw2 10/31 22:27 Order name: Urine --Ancillary (enter results); Complete Time: 22:37 mw2 10/31 22:25 Order name: IV Start; Complete Time: 22:54 kb 10/31 22:25 Order name: Urine Test (obtain specimen); Complete Time: 22:28 kb 10/31 22:25 Order name: Urine Dipstick-Ancillary (obtain specimen); Complete Time: 22:28 kb Administered Medications: 10/31 22:56 Drug: TORadol 30 mg Route: IVP; Site: right forearm; mg2 11/01 01:06 Follow up: Response: No adverse reaction; Marked relief of symptoms mg2 10/31 23:12 Drug: Zofran 4 mg Route: IVP; Site: right forearm; mg2 11/01 01:06 Follow up: Response: No adverse reaction; Marked relief of symptoms mg2 02:06 Drug: Flomax 0.4 mg Route: PO; mg2 03:16 Follow up: Response: No adverse reaction; Marked relief of symptoms mg2 02:06 Drug: Magnesium Sulfate 1 grams Route: IVPB; Infused Over: 1 hrs; Site: right forearm; mg2 03:16 Follow up: Response: No adverse reaction; IV Status: Completed infusion mg2 02:32 Drug: Zofran 4 mg Route: IVP; Site: right forearm; mg2 03:16 Follow up: Response: No adverse reaction; Marked relief of symptoms mg2 02:34 Drug: fentaNYL (PF) 50 mcg Route: IVP; Site: right forearm; mg2 03:16 Follow up: Response: No adverse reaction; Marked relief of symptoms mg2 Disposition: 04:26 Co-signature as Attending Physician, Larry Bustos MD. ma2 Disposition: 11/01/18 02:21 Discharged to Home. Impression: Calculus of kidney and ureter. - Condition is Stable. - Discharge Instructions: Kidney Stones, [id number], Dietary Guidelines to Help Prevent Kidney Stones. - Prescriptions for Zofran 4 mg Oral Tablet - take 1 tablet by ORAL route every 6 hours As needed; 20 tablet. Flomax 0.4 mg Oral Capsule, Sust. Release 24 hr - take 1 capsule by ORAL route once daily 1/2 hour following the same meal each day; 10 capsule. Diclofenac Sodium 75 mg Oral Tablet, Delayed Release (E.C.) - take 1 tablet by ORAL route 2 times per day As needed; 30 tablet. Macrobid 100 mg Oral Capsule - take 1 capsule by ORAL route every 12 hours for 7 days; 14 capsule. - Medication Reconciliation Form, Thank You Letter, Antibiotic Education, Prescription Opioid Use form. - Follow up: Emergency Department; When: As needed; Reason: Worsening of condition. Follow up: Private Physician; When: 2 - 3 days; Reason: Recheck today's complaints, Continuance of care, Re-evaluation by your physician. Signatures: Dispatcher [employer] Jayne Quezada, VANIA-C WHITE MIXING OPERATOR-Guadalupe Torres RN RN aj Alzahri, Mohammad, MD MD ma2 Akash Whitman RN RN mg2 Grisel Bautista RN RN ca1 Corrections: (The following items were deleted from the chart) 03:18 02:21 11/01/2018 02:21 Discharged to Home. Impression: Calculus of kidney and ureter. mg2 Condition is Stable. Forms are Medication Reconciliation Form, Thank You Letter, Antibiotic Education, Prescription Opioid Use. Follow up: Emergency Department; When: As needed; Reason: Worsening of condition. Follow up: Private Physician; When: 2 - 3 days; Reason: Recheck today's complaints, Continuance of care, Re-evaluation by your physician. kb
[2018-11-01] MEDS ORDERED: ONDANSETRON 4 MG/2 ML VIAL ONE (02:45)
[2018-11-01] MEDS ORDERED: FENTANYL CITR 100 MCG/2 ML ONE (02:45)
[2018-11-01 08:16] VITALS: O2SAT 100
[2018-11-01 08:20] VITALS: TEMP 98
[2018-11-01 08:21] VITALS: BP 120/78
--- NOTE | 2018-11-01 11:46 | RAD REPORT ---
EXAM DESCRIPTION: CT - Stone Protocol - 11/01/2018 1:12 am CLINICAL HISTORY: FLANK PAIN COMPARISON: None. TECHNIQUE: CT ABDOMEN PELVIS WITHOUT IV CONTRAST on 10/31/2018 9:53 PM CDT This exam was performed according to our departmental dose-optimization program, which includes autom ated exposure control, adjustment of the mA and/or kV according to patient size and/or use of iterati ve reconstruction technique. FINDINGS: Lower lungs are clear. Abdomen: The liver is normal in appearance. There is no biliary dilatation. Gallbladder is normal in appearance. The pancreas and spleen are normal in appearance. Adrenal glands and left kidney are norm al. There is left hydronephrosis. There is a right UVJ calculus measuring 6 mm. Mildly obstructing 6 mm right UVJ calculus. Mildly obstructing 6 mm right UVJ calculus. Abdominal aorta is normal in course and caliber without aneurysm. There is no free air. There is no r etroperitoneal adenopathy. Pelvis: There is no bowel obstruction. Urinary bladder is unremarkable. There is small amount of free pelvic fluid. Appendix is normal. Uterus is normal in size. Skeleton: There are no acute osseous findings. No suspicious bony lesions. IMPRESSION: Mildly obstructing 6 mm right UVJ calculus. Electronically signed by: Sebas Cardenas MD 11/01/2018 12:18 AM CDT Due to temporary technical issues with the PACS/Fluency reporting system, reports are being signed by the in house radiologist as a courtesy to ensure prompt reporting. The interpreting radiologist is f ully responsible for the content of the report.
== END 2018-11-01 03:18 | disposition home or self-care (01) ==
LOC: ER 21:44
DX: N20.2 Calculus of kidney with calculus of ureter (principal); Z88.5 Allergy status to narcotic agent
CPT/HCPCS: 36415; 74176; 76377; 80048; 81003; 81025; 85025; 96365; 96375; 99284; J2405; J3010; J3475

== ENCOUNTER 2018-11-03 09:58 | Emergency (ER) | payer SELFPAY ==
--- NOTE | 2018-11-03 11:19 | ER ---
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 Transition of care: bp patient was not received from another setting of care. Onset of symptoms is unknown. Risk Assessment: Do you want to hurt yourself or someone else? Patient reports no desire to harm self or others. Initial Sepsis Screen: Does the patient meet any 2 criteria? No. Patient's initial sepsis screen is negative. Does the patient have a suspected source of infection? No. Patient's initial sepsis screen is negative. Care prior to arrival: None. 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 - Social history:: Smoking status: Patient/guardian denies using tobacco. - Ebola Screening: : No symptoms or risks identified at this time. - Family history:: not pertinent. Screenin:22 Abuse screen: Denies threats or abuse. Denies injuries from another. Nutritional bp screening: No deficits noted. Tuberculosis screening: No symptoms or risk factors identified. Fall Risk None identified. Assessment: 10:22 General: SEE TRIAGE NOTE. bp 11:48 Reassessment: PT D/C HOME AMBULATORY, DX WITH FOCAL NEUROPATHY. bp Vital Signs: 10:23 BP 121 / 71; Pulse 97; Resp 16; Temp 98; Pulse Ox 100% ; Weight 72.57 kg; Height 5 ft. bp 6 in. (167.64 cm); 11:48 BP 112 / 65; Pulse 69; Resp 16; Temp 98; Pulse Ox 99% ; bp 10:23 Body Mass Index 25.82 (72.57 kg, 167.64 cm) bp ED Course: 10:02 Patient arrived in ED. mr 10:02 None, None is Private Physician. mr 10:14 Isiah Browne, RN is Primary Nurse. bp 10:16 Edilberto Huston MD is Attending Physician. tara 10:22 Triage completed. bp 10:22 Patient has correct armband on for positive identification. Bed in low position. Call bp light in reach. Side rails up X2. 10:22 No provider procedures requiring assistance completed. Patient did not have IV access bp during this emergency room visit. 10:23 Arm band placed on. bp Administered Medications: 11:25 Drug: Motrin 400 mg Route: PO; bp Outcome: 10:22 Discharged to home ambulatory. bp 10:22 Condition: stable 10:22 Discharge instructions given to patient, Instructed on discharge instructions, follow up and referral plans. medication usage, Demonstrated understanding of instructions, follow-up care, medications, Prescriptions given X 1. 11:18 Discharge ordered by . [facility] 11:50 Patient left the ED. bp Signatures: Edilberto Huston MD MD cha Rivera, Mary mr Isiah Browne, RN RN bp
--- NOTE | 2018-11-03 11:19 | EDPHYS ---
Physician Documentation [facility] Name: Mari Chicas Age: 33 yrs Sex: Female : 1985 Arrival Date: 11/03/2018 Time: 10:02 Bed 20 Private MD: None, None ED Physician Edilberto Huston HPI: 11/03 11:05 This 33 yrs old Female presents to ER via Ambulatory with complaints of tara Numbness Of Arm. 11:05 The patient or guardian complains of left 4/5th finger tingling. The complaints affect tara the left wrist and left hand. Context: The problem was sustained at an unknown location. Onset: The symptoms/episode began/occurred 2 hour(s) ago. Treatment prior to arrival includes: no previous treatment. Modifying factors: The symptoms are alleviated by nothing. the symptoms are aggravated by nothing. Associated signs and symptoms: The patient has no apparent associated signs or symptoms. The patient has not experienced similar symptoms in the past. 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 - Social history:: Smoking status: Patient/guardian denies using tobacco. - Ebola Screening: : No symptoms or risks identified at this time. - Family history:: not pertinent. ROS: 11:05 Constitutional: Negative for fever, chills, and weight loss, Eyes: Negative for injury, tara pain, redness, and discharge, ENT: Negative for injury, pain, and discharge, Neck: Negative for injury, pain, and swelling, Cardiovascular: Negative for chest pain, palpitations, and edema, Respiratory: Negative for shortness of breath, cough, wheezing, and pleuritic chest pain, Abdomen/GI: Negative for abdominal pain, nausea, vomiting, diarrhea, and constipation, Back: Negative for injury and pain, : Negative for injury, bleeding, discharge, and swelling, Skin: Negative for injury, rash, and discoloration, Psych: Negative for depression, anxiety, suicide ideation, homicidal ideation, and hallucinations, Allergy/Immunology: Negative for hives, rash, and allergies, Endocrine: Negative for neck swelling, polydipsia, polyuria, polyphagia, and marked weight changes, Hematologic/Lymphatic: Negative for swollen nodes, abnormal bleeding, and unusual bruising. 11:05 MS/extremity: Positive for paresthesias, of the medial aspect of left hand, palmar aspect of distal phalanx of left little finger, palmar aspect of middle phalanx of left little finger, palmar aspect of proximal phalanx of left little finger, palmar aspect of distal phalanx of left ring finger, palmar aspect of middle phalanx of left ring finger and palmar aspect of proximal phalanx of left ring finger. Exam: 11:05 Constitutional: This is a well developed, well nourished patient who is awake, alert, tara and in no acute distress. Head/Face: Normocephalic, atraumatic. Eyes: Pupils equal round and reactive to light, extra-ocular motions intact. Lids and lashes normal. Conjunctiva and sclera are non-icteric and not injected. Cornea within normal limits. Periorbital areas with no swelling, redness, or edema. ENT: Nares patent. No nasal discharge, no septal abnormalities noted. Tympanic membranes are normal and external auditory canals are clear. Oropharynx with no redness, swelling, or masses, exudates, or evidence of obstruction, uvula midline. Mucous membranes moist. Neck: Trachea midline, no thyromegaly or masses palpated, and no cervical lymphadenopathy. Supple, full range of motion without nuchal rigidity, or vertebral point tenderness. No Meningismus. Chest/axilla: Normal chest wall appearance and motion. Nontender with no deformity. No lesions are appreciated. Cardiovascular: Regular rate and rhythm with a normal S1 and S2. No gallops, murmurs, or rubs. Normal PMI, no JVD. No pulse deficits. Respiratory: Lungs have equal breath sounds bilaterally, clear to auscultation and percussion. No rales, rhonchi or wheezes noted. No increased work of breathing, no retractions or nasal flaring. Abdomen/GI: Soft, non-tender, with normal bowel sounds. No distension or tympany. No guarding or rebound. No evidence of tenderness throughout. Back: No spinal tenderness. No costovertebral tenderness. Full range of motion. Skin: Warm, dry with normal turgor. Normal color with no rashes, no lesions, and no evidence of cellulitis. Neuro: Awake and alert, GCS 15, oriented to person, place, time, and situation. Cranial nerves II-XII grossly intact. Motor strength 5/5 in all extremities. Sensory grossly intact. Cerebellar exam normal. Normal gait. Psych: Awake, alert, with orientation to person, place and time. Behavior, mood, and affect are within normal limits. 11:05 Musculoskeletal/extremity: Extremities: ROM: no acute changes, intact in all extremities, full active range of motion, full passive range of motion, Circulation is intact in all extremities. the palmar aspect of distal phalanx of left little finger, palmar aspect of middle phalanx of left little finger, palmar aspect of proximal phalanx of left little finger, palmar aspect of distal phalanx of left ring finger, palmar aspect of middle phalanx of left ring finger and palmar aspect of proximal phalanx of left ring finger Tingling of extremity. numbness, decreased sensation. Vital Signs: 10:23 BP 121 / 71; Pulse 97; Resp 16; Temp 98; Pulse Ox 100% ; Weight 72.57 kg; Height 5 ft. bp 6 in. (167.64 cm); 11:48 BP 112 / 65; Pulse 69; Resp 16; Temp 98; Pulse Ox 99% ; bp 10:23 Body Mass Index 25.82 (72.57 kg, 167.64 cm) bp MDM: 10:16 Patient medically screened. [facility] 11:05 Data reviewed: vital signs, nurses notes. [facility] Administered Medications: 11:25 Drug: Motrin 400 mg Route: PO; bp Disposition: 11/03/18 11:18 Discharged to Home. 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 - Condition is Stable. - Discharge Instructions: Peripheral Neuropathy, Focal Neuropathy. - Prescriptions for Motrin IB 200 mg Oral Tablet - take 2 tablet by ORAL route every 6 hours As needed as needed with food; 30 tablet. - Medication Reconciliation Form, Thank You Letter, Antibiotic Education, Prescription Opioid Use form. - Follow up: Private Physician; When: 2 - 3 days; Reason: Recheck today's complaints, Continuance of care, Re-evaluation by your physician. - Problem is new. - Symptoms have improved. Signatures: Edilberto Huston MD MD cha Peltier, Brian, RN RN bp Corrections: (The following items were deleted from the chart) 11:50 11:18 11/03/2018 11:18 Discharged to Home. Impression: Injury of ulnar nerve at wrist bp and hand level of left arm. Condition is Stable. Forms are Medication Reconciliation Form, Thank You Letter, Antibiotic Education, Prescription Opioid Use. Follow up: Private Physician; When: 2 - 3 days; Reason: Recheck today's complaints, Continuance of care, Re-evaluation by your physician. Problem is new. Symptoms have improved. tara
[2018-11-03] MEDS ORDERED: IBUPROFEN 400 MG TAB ONE (11:50)
[2018-11-03 11:55] VITALS: TEMP 98
[2018-11-03 11:57] VITALS: BP 112/65; O2SAT 99
== END 2018-11-03 11:50 | disposition home or self-care (01) ==
LOC: ER 09:58
DX: S64.02XA Injury of ulnar nerve at wrist and hand level of left arm, initial encounter (principal); Z88.5 Allergy status to narcotic agent
CPT/HCPCS: 99283

== ENCOUNTER 2018-11-07 17:13 | Emergency (ER) | payer BC, SELFPAY ==
[2018-11-07] MEDS ORDERED: HYDROCODONE/APAP 10/325 TAB ONE (20:06)
[2018-11-07] MEDS ORDERED: KETOROLAC 30 MG/ML INJ ONE (20:06)
--- NOTE | 2018-11-07 20:35 | EDPHYS ---
Physician Documentation [facility] Name: Mari Chicas Age: 33 yrs Sex: Female : 1985 Arrival Date: 11/07/2018 Time: 17:16 Bed 30 Private MD: ED Physician Mateusz Weller HPI: 11/07 20:32 This 33 yrs old Female presents to ER via Ambulatory with complaints of gs Possible Kidney Stone. 20:32 The patient complains of pain in the right low back. Onset: The symptoms/episode gs began/occurred 1 week(s) ago. Associated signs and symptoms: Pertinent negatives: fever, vomiting. Severity of pain: At its worst the pain was moderate in the emergency department the pain is unchanged. The patient has experienced similar episodes in the past, a few times. The patient has been recently seen at the [facility] Emergency Department, last week, for similar complaints. 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 - Social history:: Smoking status: unknown. - Ebola Screening: : No symptoms or risks identified at this time. ROS: 20:32 All other systems are negative. gs Exam: 20:32 Head/Face: Normocephalic, atraumatic. Eyes: Pupils equal round and reactive to light, gs extra-ocular motions intact. Lids and lashes normal. Conjunctiva and sclera are non-icteric and not injected. Cornea within normal limits. Periorbital areas with no swelling, redness, or edema. ENT: Nares patent. No nasal discharge, no septal abnormalities noted. Tympanic membranes are normal and external auditory canals are clear. Oropharynx with no redness, swelling, or masses, exudates, or evidence of obstruction, uvula midline. Mucous membranes moist. Neck: Trachea midline, no thyromegaly or masses palpated, and no cervical lymphadenopathy. Supple, full range of motion without nuchal rigidity, or vertebral point tenderness. No Meningismus. Chest/axilla: Normal chest wall appearance and motion. Nontender with no deformity. No lesions are appreciated. Cardiovascular: Regular rate and rhythm with a normal S1 and S2. No gallops, murmurs, or rubs. Normal PMI, no JVD. No pulse deficits. Respiratory: Lungs have equal breath sounds bilaterally, clear to auscultation and percussion. No rales, rhonchi or wheezes noted. No increased work of breathing, no retractions or nasal flaring. Abdomen/GI: Soft, non-tender, with normal bowel sounds. No distension or tympany. No guarding or rebound. No evidence of tenderness throughout. Back: No spinal tenderness. No costovertebral tenderness. Full range of motion. Skin: Warm, dry with normal turgor. Normal color with no rashes, no lesions, and no evidence of cellulitis. MS/ Extremity: Pulses equal, no cyanosis. Neurovascular intact. Full, normal range of motion. Neuro: Awake and alert, GCS 15, oriented to person, place, time, and situation. Cranial nerves II-XII grossly intact. Motor strength 5/5 in all extremities. Sensory grossly intact. Cerebellar exam normal. Normal gait. 20:32 Constitutional: The patient appears alert, awake. Vital Signs: 17:53 BP 135 / 75; Pulse 84; Resp 18; Temp 98.4; Pulse Ox 100% ; Weight 72.57 kg; Height 5 bp ft. 6 in. (167.64 cm); 20:30 BP 123 / 83; Pulse 72; Resp 18; Pulse Ox 100% on R/A; aj1 17:53 Body Mass Index 25.82 (72.57 kg, 167.64 cm) bp MDM: 19:37 Patient medically screened. gs 20:32 Data reviewed: vital signs, nurses notes, old medical records. Response to treatment: gs the patient's symptoms have markedly improved after treatment, the patient's condition has returned to base line, and as a result, I will discharge patient. Administered Medications: 19:54 Drug: [place] 10 mg-325 mg 1 tabs Route: PO; aj1 21:01 Follow up: Response: No adverse reaction aj1 19:54 Drug: TORadol 30 mg Route: IM; Site: right deltoid; aj1 21:01 Follow up: Response: No adverse reaction aj1 Disposition: 11/07/18 20:34 Discharged to Home. Impression: Calculus of ureter. - Condition is Stable. - Discharge Instructions: Kidney Stones. - Medication Reconciliation Form, Thank You Letter, Antibiotic Education, Prescription Opioid Use form. - Follow up: Private Physician; When: 1 - 2 days; Reason: Re-evaluation by your physician. Follow up: Braydon Funez MD; When: 2 - 3 days; Reason: Re-evaluation by your physician. Follow up: Jonathan Mullen MD; When: 1 - 2 days; Reason: Re-evaluation by your physician. Signatures: Bethany Prasad RN RN aj1 Mateusz Weller MD MD Isiah Browne RN RN bp Corrections: (The following items were deleted from the chart) 21:02 20:34 11/07/2018 20:34 Discharged to Home. Impression: Calculus of ureter. Condition is aj1 Stable. Forms are Medication Reconciliation Form, Thank You Letter, Antibiotic Education, Prescription Opioid Use. Follow up: Private Physician; When: 1 - 2 days; Reason: Re-evaluation by your physician. Follow up: Braydon Funez; When: 2 - 3 days; Reason: Re-evaluation by your physician. Follow up: Jonathan Mullen; When: 1 - 2 days; Reason: Re-evaluation by your physician. gs
--- NOTE | 2018-11-07 20:35 | ER ---
Nurse's Notes [facility] Name: Mari Chicas Age: 33 yrs Sex: Female : 1985 Arrival Date: 11/07/2018 Time: 17:16 Bed 30 Private MD: Diagnosis: Calculus of ureter Presentation: 11/07 17:52 Presenting complaint: Patient states: MY KIDNEY STONE ISN'T ANY BETTER. DX WITH KIDNEY bp STONE ON LAST VISIT. Transition of care: patient was not received from another setting of care. Onset of symptoms is unknown. Risk Assessment: Do you want to hurt yourself or someone else? Patient reports no desire to harm self or others. Initial Sepsis Screen: Does the patient meet any 2 criteria? No. Patient's initial sepsis screen is negative. Does the patient have a suspected source of infection? No. Patient's initial sepsis screen is negative. Care prior to arrival: None. 17:52 Method Of Arrival: Ambulatory bp 17:52 Acuity: FILI 3 bp Triage Assessment: 17:53 General: Appears in no apparent distress. comfortable, Behavior is cooperative, bp appropriate for age, anxious. Pain: Complains of pain in right flank. GI: No signs and/or symptoms were reported involving the gastrointestinal system. 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 - Social history:: Smoking status: unknown. - Ebola Screening: : No symptoms or risks identified at this time. Screenin:23 Abuse screen: Denies threats or abuse. Denies injuries from another. Nutritional aj1 screening: No deficits noted. Tuberculosis screening: No symptoms or risk factors identified. 21:00 Fall Risk None identified. aj1 Assessment: 19:23 General: Appears in no apparent distress. uncomfortable, Behavior is calm, cooperative, aj1 appropriate for age. Pain: Complains of pain in right flank Pain does not radiate. Pain currently is 9 out of 10 on a pain scale. Neuro: Level of Consciousness is awake, alert, obeys commands, Oriented to person, place, time, situation. Cardiovascular: Patient's skin is warm and dry. Respiratory: Airway is patent Respiratory effort is even, unlabored, Respiratory pattern is regular, symmetrical. GI: Bowel sounds present X 4 quads. Abd is soft and non tender X 4 quads. : Reports urinary frequency, that she was seen a week ago in this ER and diagnosed with kidney stones, the pain had gotten better so she didn't follow up with urology, but now her pain is back. EENT: No signs and/or symptoms were reported regarding the EENT system. Derm: No signs and/or symptoms reported regarding the dermatologic system. Skin is pink, warm \T\ dry. normal. Musculoskeletal: No signs and/or symptoms reported regarding the musculoskeletal system. Circulation, motion, and sensation intact. 20:30 Reassessment: Patient appears in no apparent distress at this time. No changes from aj1 previously documented assessment. Patient and/or family updated on plan of care and expected duration. Pain level reassessed. Patient is alert, oriented x 3, equal unlabored respirations, skin warm/dry/pink. Vital Signs: 17:53 BP 135 / 75; Pulse 84; Resp 18; Temp 98.4; Pulse Ox 100% ; Weight 72.57 kg; Height 5 bp ft. 6 in. (167.64 cm); 20:30 BP 123 / 83; Pulse 72; Resp 18; Pulse Ox 100% on R/A; aj1 17:53 Body Mass Index 25.82 (72.57 kg, 167.64 cm) bp ED Course: 17:16 Patient arrived in ED. mr 17:53 Triage completed. bp 17:53 Arm band placed on. bp 19:10 Mateusz Weller MD is Attending Physician. gs 19:23 Bethany Prasad, JESSIE is Primary Nurse. aj1 19:23 Patient has correct armband on for positive identification. Bed in low position. Call aj1 light in reach. Side rails up X 1. 19:23 No provider procedures requiring assistance completed. aj1 20:33 Braydon Funez MD is Referral Physician. gs 20:34 Jonathan Mullen MD is Referral Physician. gs 21:01 Patient did not have IV access during this emergency room visit. aj1 Administered Medications: 19:54 Drug: [place] 10 mg-325 mg 1 tabs Route: PO; aj1 21:01 Follow up: Response: No adverse reaction aj1 19:54 Drug: TORadol 30 mg Route: IM; Site: right deltoid; aj1 21:01 Follow up: Response: No adverse reaction aj1 Outcome: 20:34 Discharge ordered by . 21:01 Discharged to home ambulatory. aj1 21:01 Condition: good 21:01 Discharge instructions given to patient, Instructed on discharge instructions, follow up and referral plans. Demonstrated understanding of instructions, follow-up care. 21:02 Patient left the ED. aj1 Signatures: Bethany Prasad RN RN aj Selena Cagle Gregory, MD MD gs Peltier, Brian, RN RN bp
[2018-11-07 21:39] VITALS: TEMP 98.4; O2SAT 100
[2018-11-07 21:42] VITALS: BP 123/83
== END 2018-11-07 21:02 | disposition home or self-care (01) ==
LOC: ER 17:13
DX: N20.1 Calculus of ureter (principal); F41.9 Anxiety disorder, unspecified; Z88.5 Allergy status to narcotic agent
CPT/HCPCS: 96372; 99283

== ENCOUNTER 2018-11-30 17:56 | Emergency (ER) | payer BC ==
[2018-11-30] MEDS ORDERED: ONDANSETRON 4 MG/2 ML VIAL ONE ×2 (18:48→20:44)
[2018-11-30] MEDS ORDERED: FENTANYL CITR 100 MCG/2 ML ONE (18:48)
[2018-11-30] MEDS ORDERED: NA CHLORIDE 0.9% 1,000 ML ONE (18:48)
[2018-11-30 18:53] LABS: Absolute Lymphocytes (CBC) 1.9 K/uL (0.7-4.9); Basophils % 0.6 % (0-1.3); Eosinophils % 0.3 % (0-4.4); Hematocrit 36.6 % (36.0-45.0); Lymphocytes % 10.8 % (15.3-44.8); MPV 7.9 fL (7.6-11.3); Monocytes % 6.4 % (3.3-12.3); RBC Red Blood Cell Count 5.68 M/uL (3.86-4.86)
[2018-11-30 19:11] LABS: Albumin 4.6 g/dL (3.4-5.0); Bilirubin Direct 0.1 mg/dL (0-0.2); Bilirubin Total 0.5 mg/dL (0.2-1.0); Potassium 3.7 mmol/L (3.5-5.1); Protein, Total 8.1 g/dL (6.4-8.2)
[2018-11-30 19:21] LABS: Blood Morphology Comment NOTED (NOT SEEN); Hypochromasia 1+; Platelet Estimate INCR; Target Cells 1+; Urine White Blood Cell Casts OK
[2018-11-30 20:22] LABS: Urine Blood NEGATIVE (NEG); Urine Glucose NEGATIVE (NEG); Urine Protein 1+ (NEG)
--- NOTE | 2018-11-30 20:33 | RAD REPORT ---
EXAM DESCRIPTION: CT - Abdomen Pelvis W Contrast - 11/30/2018 7:47 pm CLINICAL HISTORY: Abdominal pain with vomiting COMPARISON: October 2018 TECHNIQUE: Computed axial tomography of the abdomen pelvis was obtained. 100 cc Isovue-300 was admin istered intravenously. Oral contrast was not requested which limits evaluation of bowel. All CT scans are performed using dose optimization technique as appropriate and may include automated exposure control or mA/KV adjustment according to patient size. FINDINGS: The liver, spleen, pancreas, adrenal and kidneys appear unremarkable. There is no evidence of diverticulitis. Ventral hernia within abdomen contains fat. Neck measures 1.8 centimeters Moderate amount of free fluid. An irregularly shaped 1.6 centimeter left ovarian cyst IMPRESSION: Moderate amount of free fluid. An irregularly shaped 1.6 centimeter left ovarian cyst ma y have recently ruptured .Moderate amount of free fluid. .
[2018-11-30] MEDS ORDERED: PROMETHAZINE 25 MG/ML VIAL ONE (21:00)
--- NOTE | 2018-11-30 21:37 | EDPHYS ---
Physician Documentation [facility] Name: Mari Chicas Age: 33 yrs Sex: Female : 1985 Arrival Date: 11/30/2018 Time: 17:59 Bed 24 Private MD: ED Physician Sahli Ladd HPI: 11/30 21:08 This 33 yrs old Female presents to ER via Ambulatory with complaints of kb Abdominal Cramping, Vomiting. 21:15 The patient presents with abdominal pain in the right upper quadrant, right lower kb quadrant. Onset: The symptoms/episode began/occurred at 15:00. The symptoms do not radiate. Associated signs and symptoms: Pertinent positives: nausea and vomiting, Pertinent negatives: anorexia, blood in stools, chest pain, constipation, diarrhea, dysuria, fever, headache, hematuria, palpitations, shortness of breath, vaginal discharge, vomiting blood. The symptoms are described as constant, crampy. Modifying factors: The symptoms are alleviated by nothing, the symptoms are aggravated by nothing. Severity of pain: At its worst the pain was moderate in the emergency department the pain is unchanged. The patient has experienced a previous episode. The patient has not recently seen a physician. Pt reports sudden onset of abd pain, nausea and vomiting at 1500 today. Has had similar pain in the past and was diagnosed with a SBO due to scar tissue. Denies fever. . 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 - Social history:: Smoking status: unknown. - Ebola Screening: : Patient negative for fever greater than or equal to 101.5 degrees Fahrenheit, and additional compatible Ebola Virus Disease symptoms Patient denies exposure to infectious person. ROS: 21:07 Constitutional: Negative for fever, chills, and weight loss, ENT: Negative for injury, kb pain, and discharge, Neck: Negative for injury, pain, and swelling, Cardiovascular: Negative for chest pain, palpitations, and edema, Respiratory: Negative for shortness of breath, cough, wheezing, and pleuritic chest pain, Back: Negative for injury and pain, : Negative for injury, bleeding, discharge, and swelling, MS/Extremity: Negative for injury and deformity, Skin: Negative for injury, rash, and discoloration, Neuro: Negative for headache, weakness, numbness, tingling, and seizure. 21:07 Abdomen/GI: Positive for abdominal pain, nausea and vomiting, Negative for diarrhea, constipation, abdominal cramps, abdominal distension, anorexia. Exam: 21:07 Head/Face: Normocephalic, atraumatic. ENT: Nares patent. No nasal discharge, no kb septal abnormalities noted. Tympanic membranes are normal and external auditory canals are clear. Oropharynx with no redness, swelling, or masses, exudates, or evidence of obstruction, uvula midline. Mucous membranes moist. Neck: Trachea midline, no thyromegaly or masses palpated, and no cervical lymphadenopathy. Supple, full range of motion without nuchal rigidity, or vertebral point tenderness. No Meningismus. Chest/axilla: Normal chest wall appearance and motion. Nontender with no deformity. No lesions are appreciated. Cardiovascular: Regular rate and rhythm with a normal S1 and S2. No gallops, murmurs, or rubs. Normal PMI, no JVD. No pulse deficits. Respiratory: Lungs have equal breath sounds bilaterally, clear to auscultation and percussion. No rales, rhonchi or wheezes noted. No increased work of breathing, no retractions or nasal flaring. Back: No spinal tenderness. No costovertebral tenderness. Full range of motion. Skin: Warm, dry with normal turgor. Normal color with no rashes, no lesions, and no evidence of cellulitis. MS/ Extremity: Pulses equal, no cyanosis. Neurovascular intact. Full, normal range of motion. Neuro: Awake and alert, GCS 15, oriented to person, place, time, and situation. Cranial nerves II-XII grossly intact. Motor strength 5/5 in all extremities. Sensory grossly intact. Cerebellar exam normal. Normal gait. 21:07 Constitutional: The patient appears alert, awake, in obvious pain. 21:07 Abdomen/GI: Inspection: abdomen appears normal, Bowel sounds: normal, in all quadrants, Palpation: soft, in all quadrants, moderate abdominal tenderness, in the right upper quadrant and right lower quadrant. Vital Signs: 18:04 BP 144 / 106; Pulse 96; Resp 20; Temp 96.9(TE); Pulse Ox 100% on R/A; Weight 65.77 kg; hj Height 5 ft. 6 in. (167.64 cm); Pain 10/10; 18:55 BP 116 / 68; Pulse 58; Resp 16; Pulse Ox 100% on R/A; Pain 10/10; iw 19:30 BP 105 / 56; Pulse 56; Resp 17; Pulse Ox 100% on R/A; wh 20:51 BP 128 / 75; Pulse 75; Resp 16; Pulse Ox 100% on R/A; wh 21:57 BP 125 / 67; Pulse 59; Resp 18; Pulse Ox 100% on R/A; wh 18:04 Body Mass Index 23.40 (65.77 kg, 167.64 cm) hj MDM: 18:09 Patient medically screened. kb 20:57 Data reviewed: vital signs, nurses notes. Data interpreted: Pulse oximetry: on room air kb is 100 %. Interpretation: normal. ED course: Asked Dr Vargas about right sided abd findings due to explain right sided pain. Dr Vargas said there is nothing acute on the right side of the abd on CT. 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 21:38 ED course: Pt feeling better after phenergan. Pt educated on diagnostics. Educated to kb return for fever or worsening symptoms or any other concerns. Verbal understanding received. 11/30 18:31 Order name: Basic Metabolic Panel; Complete Time: 19:27 kb 11/30 18:31 Order name: CBC with Diff; Complete Time: 19:27 kb 11/30 18:31 Order name: Hepatic Function; Complete Time: 19:27 kb 11/30 18:31 Order name: Lipase; Complete Time: 19:27 kb 11/30 18:57 Order name: CBC Smear Scan; Complete Time: 19:27 EDMS 11/30 19:56 Order name: Urine Dipstick--Ancillary (enter results); Complete Time: 20:22 ar5 11/30 18:49 Order name: CT Abd/Pelvis - IV Contrast Only; Complete Time: 20:35 kb 11/30 19:56 Order name: Urine --Ancillary (enter results); Complete Time: 20:22 ar5 11/30 20:58 Order name: US Abdomen Limited kb 11/30 18:31 Order name: IV Saline Lock; Complete Time: 18:45 kb 11/30 18:31 Order name: Labs collected and sent; Complete Time: 18:45 kb Administered Medications: 18:35 Drug: NS 0.9% 1000 ml Route: IV; Rate: 1000 ml; Site: left antecubital; iw 20:51 Follow up: Response: No adverse reaction; IV Status: Completed infusion 18:35 Drug: Zofran 4 mg Route: IVP; Site: left antecubital; iw 20:50 Follow up: Response: No adverse reaction 18:45 Drug: fentaNYL (PF) 50 mcg Route: IVP; Site: left antecubital; iw 20:50 Follow up: Response: No adverse reaction 20:32 Drug: Zofran 4 mg Route: IVP; Site: left antecubital; wh 20:50 Follow up: Response: No adverse reaction 20:50 Drug: Phenergan 12.5 mg Route: IVP; Site: left antecubital; wh 21:56 Follow up: Response: No adverse reaction Disposition: 12/01 07:34 Co-signature as Attending Physician, Sahil Ladd MD I agree with the assessment and kdr plan of care. Disposition: 11/30/18 21:37 Discharged to Home. Impression: Generalized abdominal pain, Nausea with vomiting, unspecified. - Condition is Stable. - Discharge Instructions: Nausea and Vomiting, Adult, [id number], Abdominal Pain, Adult, [id number]. - Prescriptions for Bentyl 20 mg Oral Tablet - take 1 tablet by ORAL route every 6 hours As needed; 20 tablet. Diclofenac Sodium 75 mg Oral Tablet, Delayed Release (E.C.) - take 1 tablet by ORAL route 2 times per day As needed; 30 tablet. promethazine 25 mg Oral Tablet - take 1 tablet by ORAL route every 8 hours As needed; 20 tablet. - Medication Reconciliation Form, Thank You Letter, Antibiotic Education, Prescription Opioid Use form. - Follow up: Emergency Department; When: As needed; Reason: Worsening of condition. Follow up: Private Physician; When: 2 - 3 days; Reason: Recheck today's complaints, Continuance of care, Re-evaluation by your physician. Signatures: Dispatcher [employer] EDJayne Medrano, DIORAMIST-C DIORAMIST-Sahil Valdez MD MD kdr Williams, Irene, RN RN Jimi Hua RN RN Paris Marco A Corrections: (The following items were deleted from the chart) 11/30 21:14 20:57 Counseling: I had a detailed discussion with the patient and/or guardian tim regarding: the historical points, exam findings, and any diagnostic results supporting the discharge/admit diagnosis, lab results, radiology results, the need for outpatient follow up, a family practitioner, to return to the emergency department if symptoms worsen or persist or if there are any questions or concerns that arise at home, tim 21:21 21:15 The symptoms are described as constant, tim 21:56 21:37 11/30/2018 21:37 Discharged to Home. Impression: Generalized abdominal pain; wh Nausea with vomiting, unspecified. Condition is Stable. Forms are Medication Reconciliation Form, Thank You Letter, Antibiotic Education, Prescription Opioid Use. Follow up: Emergency Department; When: As needed; Reason: Worsening of condition. Follow up: Private Physician; When: 2 - 3 days; Reason: Recheck today's complaints, Continuance of care, Re-evaluation by your physician. tim
--- NOTE | 2018-11-30 21:37 | ER ---
Nurse's Notes [facility] Name: Mari Chicas Age: 33 yrs Sex: Female : 1985 Arrival Date: 11/30/2018 Time: 17:59 Bed 24 Private MD: Diagnosis: Generalized abdominal pain;Nausea with vomiting, unspecified Presentation: 11/30 18:02 Presenting complaint: Patient states: my stomach has been cramping since 3 pm today and hj couldn't stop vomiting; pain is 10/10; denies diarrhea; states hx of obstruction;. Transition of care: patient was not received from another setting of care. Onset of symptoms was November 30, 2018. Risk Assessment: Do you want to hurt yourself or someone else? Patient reports no desire to harm self or others. Initial Sepsis Screen: Does the patient meet any 2 criteria? No. Patient's initial sepsis screen is negative. Does the patient have a suspected source of infection? No. Patient's initial sepsis screen is negative. Care prior to arrival: None. 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 - Social history:: Smoking status: unknown. - Ebola Screening: : Patient negative for fever greater than or equal to 101.5 degrees Fahrenheit, and additional compatible Ebola Virus Disease symptoms Patient denies exposure to infectious person. Screenin:26 Abuse screen: Denies threats or abuse. Denies injuries from another. Nutritional iw screening: No deficits noted. Tuberculosis screening: No symptoms or risk factors identified. Fall Risk IV access (20 points). Assessment: 18:24 General: Appears uncomfortable, Behavior is calm. Pain: Complains of pain in right iw lower quadrant Pain currently is 9 out of 10 on a pain scale. Quality of pain is described as crampy, Pain began 4 hours ago. Is continuous, Noted to be grimacing, guarding, moaning. Neuro: Level of Consciousness is awake, alert, obeys commands, Oriented to person, place, time, situation, Moves all extremities. Cardiovascular: Patient's skin is warm and dry. Respiratory: Respiratory effort is even, unlabored, Respiratory pattern is regular, symmetrical. GI: Abdomen is non-distended, Bowel sounds present X 4 quads. Abd is soft X 4 quads Reports lower abdominal pain, nausea, vomiting. Derm: Skin is intact, is healthy with good turgor. Musculoskeletal: Range of motion: intact in all extremities. 19:30 Reassessment: Patient appears in no apparent distress at this time. Patient and/or wh family updated on plan of care and expected duration. Pain level reassessed. Patient is alert, oriented x 3, equal unlabored respirations, skin warm/dry/pink. 20:51 Reassessment: Patient appears in no apparent distress at this time. Patient and/or wh family updated on plan of care and expected duration. Pain level reassessed. Patient is alert, oriented x 3, equal unlabored respirations, skin warm/dry/pink. Vital Signs: 18:04 BP 144 / 106; Pulse 96; Resp 20; Temp 96.9(TE); Pulse Ox 100% on R/A; Weight 65.77 kg; hj Height 5 ft. 6 in. (167.64 cm); Pain 10/10; 18:55 BP 116 / 68; Pulse 58; Resp 16; Pulse Ox 100% on R/A; Pain 10/10; iw 19:30 BP 105 / 56; Pulse 56; Resp 17; Pulse Ox 100% on R/A; wh 20:51 BP 128 / 75; Pulse 75; Resp 16; Pulse Ox 100% on R/A; wh 21:57 BP 125 / 67; Pulse 59; Resp 18; Pulse Ox 100% on R/A; wh 18:04 Body Mass Index 23.40 (65.77 kg, 167.64 cm) ED Course: 17:59 Patient arrived in ED. mr 18:03 Triage completed. hj 18:04 Arm band placed on left wrist. hj 18:09 Jayne Taveras FNP-C [facility]. kb 18:09 Sahil Ladd MD is Attending Physician. kb 18:12 Hafsa Figueroa, RN is Primary Nurse. iw 18:26 No provider procedures requiring assistance completed. Inserted saline lock: 22 gauge iw in left antecubital area, using aseptic technique. 18:53 Radiology exam delayed due to lab results not completed at this time. (BUN/Creatinine) mo test not completed at this time. 19:30 Patient has correct armband on for positive identification. Fall risk band placed. wh Placed in gown. Bed in low position. Call light in reach. Side rails up X 1. Pulse ox on. NIBP on. 19:47 CT completed. Patient tolerated procedure well. Patient moved to CT. Patient moved back mo from CT. 19:48 CT Abd/Pelvis - IV Contrast Only In Process Unspecified. EDMS 21:32 US Abdomen Limited In Process Unspecified. EDMS 21:55 IV discontinued, intact, bleeding controlled, No redness/swelling at site. Administered Medications: 18:35 Drug: NS 0.9% 1000 ml Route: IV; Rate: 1000 ml; Site: left antecubital; iw 20:51 Follow up: Response: No adverse reaction; IV Status: Completed infusion 18:35 Drug: Zofran 4 mg Route: IVP; Site: left antecubital; iw 20:50 Follow up: Response: No adverse reaction 18:45 Drug: fentaNYL (PF) 50 mcg Route: IVP; Site: left antecubital; iw 20:50 Follow up: Response: No adverse reaction 20:32 Drug: Zofran 4 mg Route: IVP; Site: left antecubital; 20:50 Follow up: Response: No adverse reaction 20:50 Drug: Phenergan 12.5 mg Route: IVP; Site: left antecubital; 21:56 Follow up: Response: No adverse reaction Outcome: 21:37 Discharge ordered by . kb 21:54 Discharged to home ambulatory. 21:54 Condition: improved 21:54 Discharge instructions given to patient, Instructed on discharge instructions, follow up and referral plans. medication usage, POC N\T\V Demonstrated understanding of instructions, follow-up care, medications, POC Prescriptions given X 3. 21:56 Patient left the ED. Signatures: Dispatcher [employer] EDMS Jayne Taveras, ANESTHESIOLOGY FELLOWYoselynC ANESTHESIOLOGY FELLOW-Selena Shoemaker Hafsa Figueroa, RN Jimi Espino RN RN hj Jordan, Nathan nj Habalo, Winsy
[2018-11-30 22:02] VITALS: TEMP 96.9; O2SAT 100
[2018-11-30 22:07] VITALS: BP 125/67
--- NOTE | 2018-12-01 11:25 | RAD REPORT ---
EXAM DESCRIPTION: US - Abdomen Exam Limited - 11/30/2018 9:32 pm CLINICAL HISTORY: ABD PAIN COMPARISON: None. TECHNIQUE: US ABDOMEN LIMITED on 11/30/2018 8:58 PM CDT FINDINGS: Liver is normal in echotexture. Gallbladder is normally distended without wall thickening or pericholecystic fluid. Common bile duct measures 2 mm. IMPRESSION: Unremarkable study. Electronically signed by: Sebas Cardenas MD 12/01/2018 2:05 AM CDT Due to temporary technical issues with the PACS/Fluency reporting system, reports are being signed b y the in house radiologist as a courtesy to ensure prompt reporting. The interpreting radiologist is fully responsible for the content of the report.
== END 2018-11-30 21:56 | disposition home or self-care (01) ==
LOC: ER 17:56
DX: R11.2 Nausea with vomiting, unspecified (principal); Z88.5 Allergy status to narcotic agent
CPT/HCPCS: 36415; 74177; 76705; 80048; 80076; 81003; 81025; 83690; 85025; 96361; 96374; 96375; 99284; J2405; J2550; J3010; J7030; Q9967

== ENCOUNTER 2019-01-03 20:09 | Emergency (ER) | payer BC ==
[2019-01-03] MEDS ORDERED: ONDANSETRON 4 MG/2 ML VIAL ONE ×2 (20:35→21:46)
[2019-01-03] MEDS ORDERED: FENTANYL CITR 100 MCG/2 ML ONE ×2 (20:35→22:09)
[2019-01-03 21:07] LABS: Absolute Lymphocytes (CBC) 0.8 K/uL (0.7-4.9); Hematocrit 36.4 % (36.0-45.0); Lymphocytes % 3.6 % (15.3-44.8); MPV 7.6 fL (7.6-11.3); RBC Red Blood Cell Count 5.58 M/uL (3.86-4.86)
[2019-01-03 21:15] LABS: Albumin 4.4 g/dL (3.4-5.0); Bilirubin Direct 0.2 mg/dL (0-0.2); Bilirubin Total 0.6 mg/dL (0.2-1.0); Potassium 3.5 mmol/L (3.5-5.1); Protein, Total 7.7 g/dL (6.4-8.2)
[2019-01-03 21:21] LABS: Calcium Oxalate Crystals- Ur FEW (NONE SEEN); Urine Bacteria 20-50 /HPF (<20); Urine Culture Reflex Order REFLEXED; Urine Mucus 4+ /HPF (NONE SEEN); Urine RBC <5 /HPF (NONE SEEN)
[2019-01-03 21:22] LABS: Urine Blood NEGATIVE (NEG); Urine Glucose NEGATIVE (NEG); Urine Protein TRACE (NEG); Urine Specific Gravity >1.030 (1.005-1.030); Urine pH 5.5 (5.0-7.0)
[2019-01-03 21:38] LABS: Platelet Estimate INCR
[2019-01-03 21:39] LABS: Blood Morphology Comment NOTED (NOT SEEN); Hypochromasia 1+; Polychromasia SLIGHT
--- NOTE | 2019-01-03 22:29 | RAD REPORT ---
EXAM DESCRIPTION: RAD - Abdomen Acute Series - 01/03/2019 10:24 pm CLINICAL HISTORY: Abdominal pain COMPARISON: None. FINDINGS: Lungs are clear. Heart size and vessels are normal. No pleural effusion, pneumothorax or o ther acute cardiopulmonary process seen. Bowel gas pattern is nonspecific. No bowel obstruction, free air or other acute findings. No suspicio us calcifications. No other suspicious for significant findings. IMPRESSION: Negative acute abdomen series.
[2019-01-03] MEDS ORDERED: NA CHLORIDE 0.9% 1,000 ML ONE (22:42)
[2019-01-03] MEDS ORDERED: PROMETHAZINE 25 MG/ML VIAL ONE (22:42)
[2019-01-03] MEDS ORDERED: NA CHLORIDE 0.9% 100 ML IV ONE (22:42)
[2019-01-04] MEDS ORDERED: NA CHLORIDE 0.9% 100 ML IV ONE (01:09)
[2019-01-04] MEDS ORDERED: PROMETHAZINE 25 MG/ML VIAL ONE ×2 (01:09→02:45)
[2019-01-04] MEDS ORDERED: FENTANYL CITR 100 MCG/2 ML ONE (02:31)
--- NOTE | 2019-01-04 02:46 | ER ---
Nurse's Notes [facility] Name: Mari Chicas Age: 33 yrs Sex: Female : 1985 Arrival Date: 01/03/2019 Time: 20:11 Bed 16 Private MD: None, None Diagnosis: Vomiting;Generalized abdominal pain Presentation: 01/03 20:20 Presenting complaint: Patient states: Reports she has been having abdominal cramping ea since 8 AM today, states "it just got worse from there I am not able to eat or drink without vomiting" Pt reports right lower quadrant abdominal pain. Transition of care: patient was not received from another setting of care. Onset of symptoms was January 03, 2019. Risk Assessment: Do you want to hurt yourself or someone else? Patient reports no desire to harm self or others. Initial Sepsis Screen: Does the patient meet any 2 criteria? No. Patient's initial sepsis screen is negative. Does the patient have a suspected source of infection? No. Patient's initial sepsis screen is negative. Care prior to arrival: None. 20:20 Method Of Arrival: Ambulatory ea 20:20 Acuity: FILI 3 ea Triage Assessment: 20:26 General: Appears uncomfortable, Behavior is calm, cooperative, appropriate for age. ea Pain: Complains of pain in right lower quadrant. Neuro: Level of Consciousness is awake, alert, obeys commands, Oriented to person, place, time. Cardiovascular: Patient's skin is warm and dry. Respiratory: Airway is patent Respiratory effort is even, unlabored, Respiratory pattern is regular, symmetrical. GI: Abdomen is non-distended, Bowel sounds present X 4 quads. Abdomen is tender to palpation in right lower quadrant. Derm: Skin is pale. 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 - Social history:: Smoking status: Patient uses tobacco products, denies chronic smoking, but will smoke occasionally. - Ebola Screening: : No symptoms or risks identified at this time. Screenin:25 Abuse screen: Denies threats or abuse. Nutritional screening: No deficits noted. ea Tuberculosis screening: No symptoms or risk factors identified. Fall Risk None identified. Assessment: 20:26 Reassessment: see triage assessment. ea 21:00 Reassessment: Patient and/or family updated on plan of care and expected duration. Pain ea level reassessed. Patient is alert, oriented x 3, equal unlabored respirations, skin warm/dry/pink. 22:50 Reassessment: Patient and/or family updated on plan of care and expected duration. Pain ea level reassessed. Patient is alert, oriented x 3, equal unlabored respirations, skin warm/dry/pink. 23:51 Reassessment: Patient and/or family updated on plan of care and expected duration. Pain ea level reassessed. Patient is alert, oriented x 3, equal unlabored respirations, skin warm/dry/pink. Patient states feeling better. Patient states symptoms have improved. 01/04 00:30 Reassessment: Patient and/or family updated on plan of care and expected duration. Pain ea level reassessed. Pt resting with eyes closed, respirations even and unlabored. Chest expansions even and symmetrical. No s/s of pain or discomfort noted at this time. 01:40 Reassessment: Patient and/or family updated on plan of care and expected duration. Pain ea level reassessed. Awaiting on CT results. 02:35 Reassessment: Patient and/or family updated on plan of care and expected duration. Pain ea level reassessed. Patient is alert, oriented x 3, equal unlabored respirations, skin warm/dry/pink. Provider at bedside updating pt on plan of care. 02:56 Reassessment: Patient and/or family updated on plan of care and expected duration. Pain ea level reassessed. Patient is alert, oriented x 3, equal unlabored respirations, skin warm/dry/pink. Discharge instruction given to patient,l verbalized the understanding of instruction. Pt left ED tolerating well. Vital Signs: 01/03 20:23 BP 156 / 80; Pulse 86; Resp 18; Temp 98.6; Pulse Ox 97% on R/A; Weight 65.77 kg; Height ea 5 ft. 6 in. (167.64 cm); Pain 8/10; 21:00 BP 108 / 53; Pulse 60; Resp 18; Pulse Ox 100% ; ea 22:10 BP 115 / 72; Pulse 77; Resp 18; Pulse Ox 100% on R/A; ea 23:00 BP 119 / 68; Pulse 73; Resp 18; Pulse Ox 100% on R/A; ea 23:52 BP 119 / 68; Pulse 70; Resp 18; Pulse Ox 98% on R/A; ea 01/04 01:00 BP 129 / 96; Pulse 76; Resp 18; Pulse Ox 100% on R/A; ea 02:41 BP 116 / 73; Pulse 83; Resp 18; Pulse Ox 100% on R/A; ea 01/03 20:23 Body Mass Index 23.40 (65.77 kg, 167.64 cm) ea ED Course: 01/03 20:11 Patient arrived in ED. mr 20:12 None, None is Private Physician. mr 20:17 Mateusz Weller MD is Attending Physician. 20:20 Edith French, JESSIE is Primary Nurse. ea 20:23 Triage completed. ea 20:24 Patient has correct armband on for positive identification. Bed in low position. Call ea light in reach. Side rails up X 1. 20:25 Arm band placed on right wrist. Patient placed in an exam room, on a stretcher, on ea pulse oximetry. 20:50 Inserted saline lock: 20 gauge in right antecubital area, using aseptic technique. ea Blood collected. 22:21 Abdomen Acute Series XRAY In Process Unspecified. EDMS 01/04 01:41 CT completed. Patient tolerated procedure well. Patient moved to CT via stretcher. Patient moved back from CT. 01:51 CT Abd/Pelvis - IV Contrast Only In Process Unspecified. EDMS 02:45 IV discontinued, intact, bleeding controlled, No redness/swelling at site. Pressure ea dressing applied. 02:57 No provider procedures requiring assistance completed. ea Administered Medications: 01/03 20:50 Drug: Zofran 4 mg Route: IVP; Site: left antecubital; ea 21:15 Follow up: Response: No adverse reaction; Nausea is decreased ea 20:52 Drug: fentaNYL (PF) 25 mcg {Note: RASS 0.} Route: IVP; Site: left antecubital; ea 21:15 Follow up: Response: No adverse reaction; Pain is decreased ea 22:00 Drug: Zofran 4 mg Route: IVP; Site: left antecubital; ea 22:50 Follow up: Response: No adverse reaction; Nausea unchanged ea 22:15 Drug: fentaNYL (PF) 50 mcg Route: IVP; Site: left antecubital; ea 23:50 Follow up: Response: No adverse reaction; Pain is decreased ea 23:50 Follow up: Response: RASS: Alert and Calm (0) ea 22:50 Drug: NS 0.9% 1000 ml Route: IV; Rate: 1 bolus; Site: left antecubital; ea 01/04 00:15 Follow up: Response: No adverse reaction; IV Status: Completed infusion; IV Intake: ea 1000ml 01/03 22:57 Drug: Phenergan 25 mg Route: IVP; Site: left antecubital; ea 23:30 Follow up: Response: No adverse reaction; Nausea is decreased ea 23:50 Follow up: Response: No adverse reaction; Nausea is decreased ea 01/04 01:15 Drug: Phenergan 25 mg Route: IVP; Site: left antecubital; ea 02:15 Follow up: Response: No adverse reaction jd3 02:37 Follow up: Response: No adverse reaction; Nausea is decreased ea 02:36 Drug: fentaNYL (PF) 50 mcg {Note: RASS 1.} Route: IVP; Site: left antecubital; ea 02:49 Drug: Phenergan 25 mg Route: IM; Site: left deltoid; ea Intake: 00:15 IV: 1000ml; Total: 1000ml. ea Outcome: 02:44 Discharge ordered by . 02:57 Discharged to home ambulatory. ea 02:57 Condition: stable 02:57 Discharge instructions given to patient, Instructed on discharge instructions, follow up and referral plans. medication usage, Demonstrated understanding of instructions, follow-up care, medications, Prescriptions given X 1. 02:57 Patient left the ED. ea Signatures: Dispatcher [employer] [facility] Gurjit Selena IyerHemant Elena, RN RN ea Starr, Gregory, MD MD gs Davies, Jonathon, RN RN jd3
--- NOTE | 2019-01-04 02:47 | EDPHYS ---
Physician Documentation [facility] Name: Mari Chicas Age: 33 yrs Sex: Female : 1985 Arrival Date: 01/03/2019 Time: 20:11 Bed 16 Private MD: None, None ED Physician Mateusz Weller HPI: 01/04 02:38 This 33 yrs old Female presents to ER via Ambulatory with complaints of gs Abdominal Pain. 02:38 The patient presents to the emergency department with nausea, vomiting. Onset: The gs symptoms/episode began/occurred yesterday. Possible causes: flare up of bowel problem. The symptoms are aggravated by nothing. The symptoms are alleviated by nothing. Associated signs and symptoms: Pertinent negatives: fever, GI bleeding. Severity of symptoms: At their worst the symptoms were moderate in the emergency department the symptoms are unchanged. The patient has experienced similar episodes in the past, multiple times. 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 - Social history:: Smoking status: Patient uses tobacco products, denies chronic smoking, but will smoke occasionally. - Ebola Screening: : No symptoms or risks identified at this time. ROS: 01/04 02:38 All other systems are negative. gs Exam: 02:38 Head/Face: Normocephalic, atraumatic. Eyes: Pupils equal round and reactive to light, gs extra-ocular motions intact. Lids and lashes normal. Conjunctiva and sclera are non-icteric and not injected. Cornea within normal limits. Periorbital areas with no swelling, redness, or edema. ENT: Nares patent. No nasal discharge, no septal abnormalities noted. Tympanic membranes are normal and external auditory canals are clear. Oropharynx with no redness, swelling, or masses, exudates, or evidence of obstruction, uvula midline. Mucous membranes moist. Neck: Trachea midline, no thyromegaly or masses palpated, and no cervical lymphadenopathy. Supple, full range of motion without nuchal rigidity, or vertebral point tenderness. No Meningismus. Chest/axilla: Normal chest wall appearance and motion. Nontender with no deformity. No lesions are appreciated. Cardiovascular: Regular rate and rhythm with a normal S1 and S2. No gallops, murmurs, or rubs. Normal PMI, no JVD. No pulse deficits. Respiratory: Lungs have equal breath sounds bilaterally, clear to auscultation and percussion. No rales, rhonchi or wheezes noted. No increased work of breathing, no retractions or nasal flaring. Back: No spinal tenderness. No costovertebral tenderness. Full range of motion. Skin: Warm, dry with normal turgor. Normal color with no rashes, no lesions, and no evidence of cellulitis. MS/ Extremity: Pulses equal, no cyanosis. Neurovascular intact. Full, normal range of motion. Neuro: Awake and alert, GCS 15, oriented to person, place, time, and situation. Cranial nerves II-XII grossly intact. Motor strength 5/5 in all extremities. Sensory grossly intact. Cerebellar exam normal. Normal gait. 02:38 Constitutional: The patient appears alert, awake, uncomfortable. 02:38 Abdomen/GI: Inspection: abdomen appears normal, Palpation: soft, in all quadrants, mild abdominal tenderness, in all quadrants, rebound tenderness, is not appreciated. Vital Signs: 01/03 20:23 BP 156 / 80; Pulse 86; Resp 18; Temp 98.6; Pulse Ox 97% on R/A; Weight 65.77 kg; Height ea 5 ft. 6 in. (167.64 cm); Pain 8/10; 21:00 BP 108 / 53; Pulse 60; Resp 18; Pulse Ox 100% ; ea 22:10 BP 115 / 72; Pulse 77; Resp 18; Pulse Ox 100% on R/A; ea 23:00 BP 119 / 68; Pulse 73; Resp 18; Pulse Ox 100% on R/A; ea 23:52 BP 119 / 68; Pulse 70; Resp 18; Pulse Ox 98% on R/A; ea 01/04 01:00 BP 129 / 96; Pulse 76; Resp 18; Pulse Ox 100% on R/A; ea 02:41 BP 116 / 73; Pulse 83; Resp 18; Pulse Ox 100% on R/A; ea 01/03 20:23 Body Mass Index 23.40 (65.77 kg, 167.64 cm) ea MDM: 01/03 20:41 Patient medically screened. gs 01/04 02:38 Differential diagnosis: pancreatitis, diverticulitis, viral gastroenteritis, gs gastroenteritis. Data reviewed: vital signs, nurses notes. Counseling: I had a detailed discussion with the patient and/or guardian regarding: the historical points, exam findings, and any diagnostic results supporting the discharge/admit diagnosis, lab results, radiology results, the need for outpatient follow up. Response to treatment: the patient's symptoms have markedly improved after treatment, the patient's condition has returned to base line, and as a result, I will discharge patient. 01/03 20:21 Order name: Urine Microscopic Only; Complete Time: 22:06 01/03 20:33 Order name: Basic Metabolic Panel 01/03 20:33 Order name: CBC with Diff 01/03 20:33 Order name: Hepatic Function; Complete Time: 22:07 01/03 20:33 Order name: Lipase; Complete Time: 22:07 01/03 20:34 Order name: Basic Metabolic Panel; Complete Time: 22:06 [facility] 01/03 20:34 Order name: CBC with Automated Diff; Complete Time: 22:06 [facility] 01/03 20:57 Order name: Urine Dipstick--Ancillary (enter results); Complete Time: 22:07 [facility] 01/03 20:57 Order name: Urine --Ancillary (enter results) [facility] 01/03 20:57 Order name: Urine --Ancillary; Complete Time: 22:07 [facility] 01/03 21:11 Order name: Manual Differential; Complete Time: 22:07 [facility] 01/03 21:23 Order name: Urine Culture [facility] 01/03 22:07 Order name: Abdomen Acute Series XRAY; Complete Time: 22:39 01/04 01:08 Order name: CT Abd/Pelvis - IV Contrast Only 01/03 20:21 Order name: Urine Test (obtain specimen); Complete Time: 22:59 01/03 20:21 Order name: Urine Dipstick-Ancillary (obtain specimen); Complete Time: 23:00 01/03 20:33 Order name: IV Saline Lock; Complete Time: 20:52 01/03 20:33 Order name: Labs collected and sent; Complete Time: 20:52 Administered Medications: 01/03 20:50 Drug: Zofran 4 mg Route: IVP; Site: left antecubital; ea 21:15 Follow up: Response: No adverse reaction; Nausea is decreased ea 20:52 Drug: fentaNYL (PF) 25 mcg {Note: RASS 0.} Route: IVP; Site: left antecubital; ea 21:15 Follow up: Response: No adverse reaction; Pain is decreased ea 22:00 Drug: Zofran 4 mg Route: IVP; Site: left antecubital; ea 22:50 Follow up: Response: No adverse reaction; Nausea unchanged ea 22:15 Drug: fentaNYL (PF) 50 mcg Route: IVP; Site: left antecubital; ea 23:50 Follow up: Response: No adverse reaction; Pain is decreased ea 23:50 Follow up: Response: RASS: Alert and Calm (0) ea 22:50 Drug: NS 0.9% 1000 ml Route: IV; Rate: 1 bolus; Site: left antecubital; ea 01/04 00:15 Follow up: Response: No adverse reaction; IV Status: Completed infusion; IV Intake: ea 1000ml 01/03 22:57 Drug: Phenergan 25 mg Route: IVP; Site: left antecubital; ea 23:30 Follow up: Response: No adverse reaction; Nausea is decreased ea 23:50 Follow up: Response: No adverse reaction; Nausea is decreased ea 01/04 01:15 Drug: Phenergan 25 mg Route: IVP; Site: left antecubital; ea 02:15 Follow up: Response: No adverse reaction jd3 02:37 Follow up: Response: No adverse reaction; Nausea is decreased ea 02:36 Drug: fentaNYL (PF) 50 mcg {Note: RASS 1.} Route: IVP; Site: left antecubital; ea 02:49 Drug: Phenergan 25 mg Route: IM; Site: left deltoid; ea Disposition: 01/04/19 02:44 Discharged to Home. Impression: Vomiting, Generalized abdominal pain. - Condition is Stable. - Discharge Instructions: Abdominal Pain, Adult, Nausea and Vomiting, Adult. - Prescriptions for promethazine 25 mg Oral Tablet - take 1 tablet by ORAL route every 6 hours As needed; 20 tablet. - Medication Reconciliation Form, Thank You Letter, Antibiotic Education, Prescription Opioid Use form. - Follow up: Private Physician; When: 2 - 3 days; Reason: Re-evaluation by your physician. Signatures: Dispatcher [employer] Edith Pugh RN RN ea Starr, Gregory, MD MD gs Davies, Jonathon RN jd3 Corrections: (The following items were deleted from the chart) 02:57 02:44 01/04/2019 02:44 Discharged to Home. Impression: Vomiting; Generalized abdominal ea pain. Condition is Stable. Forms are Medication Reconciliation Form, Thank You Letter, Antibiotic Education, Prescription Opioid Use. Follow up: Private Physician; When: 2 - 3 days; Reason: Re-evaluation by your physician. gs
[2019-01-04 03:04] VITALS: TEMP 98.6
[2019-01-04 03:12] VITALS: O2SAT 100
[2019-01-04 03:14] VITALS: BP 116/73
--- NOTE | 2019-01-04 10:07 | RAD REPORT ---
EXAM DESCRIPTION: CT Abdomen and Pelvis With Intravenous Contrast CLINICAL HISTORY: The patient is 33 years old and is Female; ABD PAIN TECHNIQUE: Axial computed tomography images of the abdomen and pelvis with intravenous contrast. S agittal and coronal reformatted images were created and reviewed. This CT exam was performed using one or more of the following dose reduction techniques: automated exposure control, adjustment of t he mA and/or kV according to patient size, and/or use of iterative reconstruction technique. COMPARISON: CT of the abdomen and pelvis November 30, 2018. FINDINGS: LUNG BASES: Unremarkable. No mass. No consolidation. ABDOMEN: LIVER: Unremarkable. No mass. GALLBLADDER AND BILE DUCTS: No calcified stones. No ductal dilation. PANCREAS: No ductal dilation. No mass. SPLEEN: Unremarkable. ADRENALS: Unremarkable. No mass. KIDNEYS AND URETERS: Unremarkable. No solid mass. No hydronephrosis. STOMACH AND BOWEL: The stomach is fluid-filled. The small bowel is normal in caliber. Several di stal small bowel loops demonstrate mucosal thickening. Stool is present throughout the colon. There i s no bowel obstruction. PELVIS: APPENDIX: The appendix is normal in caliber without surrounding inflammation. BLADDER: Unremarkable. No mass. REPRODUCTIVE: A 2.4 cm left ovarian cyst is present. No follow-up imaging is recommended. The ut erus and right ovary are unremarkable. ABDOMEN and PELVIS: INTRAPERITONEAL SPACE: A moderate amount of free fluid is present within the lower abdomen and p [place]. No free air. BONES/JOINTS: No acute fracture. SOFT TISSUES: The soft tissues are normal. VASCULATURE: Unremarkable. No abdominal aortic aneurysm. LYMPH NODES: Unremarkable. No enlarged lymph nodes. IMPRESSION: 1. Moderate free fluid within the pelvis, slightly progressed from prior exam. Finding s could be secondary to a recently ruptured ovarian cyst. 2. Nonspecific mucosal thickening of several distal small bowel loops which may be secondary to mil d enteritis. There is no bowel obstruction. Electronically signed by: Nickie Schumacher MD 01/04/2019 2:25 AM CDT Due to temporary technical issues with the PACS/Fluency reporting system, reports are being signed by the in house radiologist as a courtesy to ensure prompt reporting. The interpreting radiologist is f ully responsible for the content of the report.
== END 2019-01-04 02:57 | disposition home or self-care (01) ==
LOC: ER 20:09
DX: R10.84 Generalized abdominal pain (principal); R11.10 Vomiting, unspecified; Z72.0 Tobacco use; Z88.5 Allergy status to narcotic agent
CPT/HCPCS: 87088; 85025; 87086; 80048; 36415; 81025; 80076; 83690; 74177; 74022; Q9967; J2550 ×3; J3010 ×3; J7030; J2405 ×2; 81003; 81015

== ENCOUNTER 2019-10-19 06:37 | Emergency (ER) | payer BC ==
[2019-10-19 07:15] LABS: Absolute Lymphocytes (CBC) 1.4 K/uL (0.7-4.9); Basophils % 1.1 % (0-1.3); Hematocrit 30.5 % (36.0-45.0); Lymphocytes % 11.1 % (15.3-44.8); MPV 7.4 fL (7.6-11.3); RBC Red Blood Cell Count 4.76 M/uL (3.86-4.86)
[2019-10-19 07:16] LABS: Urine Blood TRACE (NEG); Urine Glucose NEGATIVE (NEG); Urine Protein NEGATIVE (NEG); Urine Specific Gravity 1.025 (1.005-1.030); Urine pH 8.5 (5.0-7.0)
[2019-10-19] MEDS ORDERED: ONDANSETRON 4 MG/2 ML VIAL ONE (07:17)
[2019-10-19] MEDS ORDERED: KETOROLAC 30 MG/ML INJ ONE (07:17)
[2019-10-19] MEDS ORDERED: NA CHLORIDE 0.9% 500 ML ONE (07:18)
[2019-10-19 07:40] LABS: Basophilic Stippling 1+; Blood Morphology Comment NOTED (NOT SEEN); Hypochromasia 1+; Platelet Estimate ADEQ; Polychromasia SLIGHT; Urine White Blood Cell Casts OK
[2019-10-19 07:42] LABS: ALT/SGPT 122 U/L (12-78); AST/SGOT 92 U/L (15-37); Albumin 3.7 g/dL (3.4-5.0); Alkaline Phosphatase 116 U/L (45-117); BUN Blood Urea Nitrogen 16 mg/dL (7-18); Bicarbonate 22 mmol/L (21-32); Bilirubin Direct < 0.1 mg/dL (0-0.2); Bilirubin Total 0.3 mg/dL (0.2-1.0); Glucose Level 110 mg/dL (74-106); Lipase 148 U/L (73-393); Protein, Total 7.4 g/dL (6.4-8.2); Sodium Level 140 mmol/L (136-145)
[2019-10-19 07:51] LABS: Urine Bacteria 20-50 /HPF (<20); Urine Culture Reflex Order REFLEXED; Urine RBC <5 /HPF (NONE SEEN); Urine White Blood Cell Casts 0-5 /LPF (NONE SEEN)
--- NOTE | 2019-10-19 07:59 | RAD REPORT ---
EXAM DESCRIPTION: CT - Stone Protocol - 10/19/2019 7:32 am CLINICAL HISTORY: Abdominal pain. COMPARISON: 2018 TECHNIQUE: Computed axial tomography of the abdomen pelvis was obtained without oral or IV contrast. Lack of IV and oral contrast limits evaluation of solid organs, bowel, and vessels. Coronal reformat donna images were obtained and reviewed. All CT scans are performed using dose optimization technique as appropriate and may include automated exposure control or mA/KV adjustment according to patient size. FINDINGS: Mild right hydronephrosis. A renal calculus is not seen. An ureteral calculus is not noted . A bladder calculus is not present. The liver, spleen, pancreas and adrenals appear grossly normal There is no evidence of diverticulitis. The appendix appears normal Moderate free fluid within the pelvis. The amount of free fluid is without significant change from th e prior CAT scan. An adnexal mass is not noted Small ventral and umbilical hernia IMPRESSION: Mild right hydronephrosis. A genitourinary calculus is not seen Moderate free fluid within predominantly the pelvis.
[2019-10-19] MEDS ORDERED: PROMETHAZINE INJ 25 MG/ML AMP ONE (08:26)
[2019-10-19] MEDS ORDERED: FENTANYL CITR 100 MCG/2 ML ONE (08:27)
[2019-10-19] MEDS ORDERED: CEFTRIAXONE/SWI 1gm 1 GM/10 ML SYR ONE (09:23)
[2019-10-19 09:33] VITALS: TEMP 99
[2019-10-19 09:37] VITALS: BP 112/63; O2SAT 98
--- NOTE | 2019-10-23 15:39 | EDPHYS ---
Physician Documentation [facility] Name: Mari Chicas Age: 34 yrs Sex: Female : 1985 Arrival Date: 10/19/2019 Time: 06:39 Bed 8 Private MD: ED Physician Larry Bustos HPI: 10/18 07:29 This 34 yrs old Female presents to ER via Ambulatory with complaints of jr8 Kidney Pain. 07:29 The patient complains of pain in the right flank. The pain radiates to the abdomen. jr8 Onset: The symptoms/episode began/occurred acutely, today. Modifying factors: The symptoms are alleviated by nothing. the symptoms are aggravated by nothing. Associated signs and symptoms: Pertinent positives: nausea, vomiting. Severity of pain: At its worst the pain was moderate in the emergency department the pain is unchanged. The patient has not experienced similar symptoms in the past. The patient has not recently seen a physician. Historical: - Allergies: 06:46 Codeine; mg2 - PMHx: 06:46 Anxiety; mg2 - Immunization history:: Flu vaccine status is unknown. ROS: 08:19 Eyes: Negative for injury, pain, redness, and discharge, ENT: Negative for injury, jr8 pain, and discharge, Neck: Negative for injury, pain, and swelling, Cardiovascular: Negative for chest pain, palpitations, and edema, Respiratory: Negative for shortness of breath, cough, wheezing, and pleuritic chest pain, Back: Negative for injury and pain, MS/Extremity: Negative for injury and deformity, Skin: Negative for injury, rash, and discoloration, Neuro: Negative for headache, weakness, numbness, tingling, and seizure. 08:19 Abdomen/GI: Positive for abdominal pain, nausea and vomiting, Negative for diarrhea, constipation, abdominal cramps, abdominal distension. Exam: 08:19 Eyes: Pupils equal round and reactive to light, extra-ocular motions intact. Lids and jr8 lashes normal. Conjunctiva and sclera are non-icteric and not injected. Cornea within normal limits. Periorbital areas with no swelling, redness, or edema. ENT: Nares patent. No nasal discharge, no septal abnormalities noted. Tympanic membranes are normal and external auditory canals are clear. Oropharynx with no redness, swelling, or masses, exudates, or evidence of obstruction, uvula midline. Mucous membranes moist. Neck: Trachea midline, no thyromegaly or masses palpated, and no cervical lymphadenopathy. Supple, full range of motion without nuchal rigidity, or vertebral point tenderness. No Meningismus. Cardiovascular: Regular rate and rhythm with a normal S1 and S2. No gallops, murmurs, or rubs. Normal PMI, no JVD. No pulse deficits. Respiratory: Lungs have equal breath sounds bilaterally, clear to auscultation and percussion. No rales, rhonchi or wheezes noted. No increased work of breathing, no retractions or nasal flaring. Back: No spinal tenderness. No costovertebral tenderness. Full range of motion. Skin: Warm, dry with normal turgor. Normal color with no rashes, no lesions, and no evidence of cellulitis. MS/ Extremity: Pulses equal, no cyanosis. Neurovascular intact. Full, normal range of motion. Neuro: Awake and alert, GCS 15, oriented to person, place, time, and situation. Cranial nerves II-XII grossly intact. Motor strength 5/5 in all extremities. Sensory grossly intact. Cerebellar exam normal. Normal gait. 08:19 Abdomen/GI: Inspection: abdomen appears normal, Bowel sounds: active, all quadrants, Palpation: soft, in all quadrants, mild abdominal tenderness, in the anterior aspect of right lateral abdomen and right lower quadrant, mass, is not appreciated, rebound tenderness, is not appreciated, voluntary guarding, is not appreciated, involuntary guarding, is not appreciated, no appreciated organomegaly, Indicators: McBurney's point is not tender, Ojel's sign is negative, Rovsing's sign is negative, Liver: tenderness, is not appreciated. Vital Signs: 06:45 BP 146 / 80; Pulse 94; Resp 18; Temp 99; Pulse Ox 99% on R/A; Weight 68.04 kg; Height 5 mg2 ft. 6 in. (167.64 cm); Pain 8/10; 07:31 BP 117 / 69; Pulse 75; Resp 16; Pulse Ox 100% ; sv 08:00 BP 101 / 55; Pulse 74; Resp 16; Pulse Ox 96% ; sv 08:49 BP 112 / 63; Pulse 68; Resp 16; Pulse Ox 98% ; sv 06:45 Body Mass Index 24.21 (68.04 kg, 167.64 cm) mg2 MDM: 06:46 Patient medically screened. jr8 08:16 Data reviewed: vital signs, nurses notes, old medical records, lab test result(s), jr8 radiologic studies, CT scan. Data interpreted: Pulse oximetry: on room air is 100 %. Interpretation: normal. Counseling: I had a detailed discussion with the patient and/or guardian regarding: the historical points, exam findings, and any diagnostic results supporting the discharge/admit diagnosis, lab results, radiology results, the need for outpatient follow up, a family practitioner, an OB/Gyne specialist, to return to the emergency department if symptoms worsen or persist or if there are any questions or concerns that arise at home. ED course: Discussed results with patient. Mild elevation in WBC and UTI present. Mild hydro to right side. Could have been small stone that passed. Moderate fluid in pelvis that is unchanged from a year ago. Explained to her that she needs to f/u with gynecology for f/u for this. No new changes that warrant admission at time but highly recommend gynecology f/u. Will put on Abx, pain meds, and nausea medicines at home. If worse or new symptoms were to arise to come back for further evaluation. Patient good with this. . 09:06 ED course: [facility] accessed... Last prescription filled for narcotics was in 2019 jr8 about a year ago. Low likely ferrer of abuse based on prescription monitoring program. Acceptable to give prescription . 10/18 06:55 Order name: Basic Metabolic Panel; Complete Time: 07:47 10/18 06:55 Order name: CBC with Diff 10/18 06:55 Order name: Hepatic Function; Complete Time: 07:47 10/18 06:55 Order name: Lipase; Complete Time: 07:47 10/18 06:55 Order name: Urine Microscopic Only; Complete Time: 08:04 10/18 07:00 Order name: Urine Dipstick--Ancillary (enter results); Complete Time: 07:29 10/18 06:55 Order name: CT Stone Protocol; Complete Time: 08:04 10/18 07:00 Order name: Urine --Ancillary (enter results); Complete Time: 07:29 [facility] 10/18 07:41 Order name: CBC Smear Scan; Complete Time: 07:47 [facility] 10/18 07:53 Order name: Urine Culture [facility] 10/18 06:55 Order name: IV Saline Lock; Complete Time: 07:16 [facility] 10/18 06:55 Order name: Labs collected and sent; Complete Time: 07:16 10/18 06:55 Order name: Urine Test (obtain specimen); Complete Time: 07:10/18 06:55 Order name: Urine Dipstick-Ancillary (obtain specimen); Complete Time: 07:16 Administered Medications: 07:15 Drug: Zofran (Ondansetron) 4 mg Route: IVP; Site: right forearm; sv 08:20 Follow up: Response: No adverse reaction; No change in condition sv 07:15 Drug: NS 0.9% 500 ml Route: IV; Rate: bolus; Site: right forearm; sv 08:20 Follow up: Response: No adverse reaction; IV Status: Completed infusion; IV Intake: sv 500ml 07:16 Drug: TORadol - Ketorolac 15 mg Route: IVP; Site: right forearm; sv 08:20 Follow up: Response: No adverse reaction; No change in condition sv 08:22 Drug: Promethazine 12.5 mg Route: IVP; Site: right forearm; sv 09:23 Follow up: Response: No adverse reaction; Marked relief of symptoms em 08:24 Drug: fentaNYL (PF) 50 mcg {Note: rass1.} Route: IVP; Site: right forearm; sv 09:23 Follow up: Response: No adverse reaction; Marked relief of symptoms; Pain is decreased em 09:20 Drug: Rocephin 1 grams Route: IV; Rate: calculated rate; Site: right forearm; em 09:22 Follow up: Response: No adverse reaction; IV Status: Completed infusion; IV Intake: 10mlsv 09:25 Follow up: Response: No adverse reaction; IV Intake: 10ml em Disposition: 10/19/19 09:02 Discharged to Home. Impression: Urinary tract infection, site not specified, Ascites - Fluid in pelvis . - Condition is Stable. - Discharge Instructions: Dysuria, Urinary Tract Infection, Adult. - Prescriptions for Cipro 500 mg Oral Tablet - take 1 tablet by ORAL route every 12 hours for 10 days; 20 tablet. Zofran 4 mg Oral Tablet - take 1 tablet by ORAL route every 12 hours As needed; 20 tablet. Tramadol 50 mg Oral Tablet - take 1 tablet by ORAL route every 8 hours as needed; 15 tablet. - Medication Reconciliation Form, Thank You Letter, Antibiotic Education, Prescription Opioid Use form. - Follow up: Alondra Cullen MD; When: 2 - 3 days; Reason: Recheck today's complaints, Continuance of care, Re-evaluation by your physician. - Problem is new. - Symptoms have improved. Signatures: Dispatcher [employer] Yenifer Colon RN RN Ge Martinez RN RN Kris Holly PA PA jr8 Akash Whitman RN RN mg2 Corrections: (The following items were deleted from the chart) 09:26 09:02 10/19/2019 09:02 Discharged to Home. Impression: Urinary tract infection, site em not specified; Ascites - Fluid in pelvis . Condition is Stable. Forms are Medication Reconciliation Form, Thank You Letter, Antibiotic Education, Prescription Opioid Use. Follow up: Alondra Cullen; When: 2 - 3 days; Reason: Recheck today's complaints, Continuance of care, Re-evaluation by your physician. Problem is new. Symptoms have improved. jr8
--- NOTE | 2019-10-23 15:39 | ER ---
Nurse's Notes [facility] Name: Mari Chicas Age: 34 yrs Sex: Female : 1985 Arrival Date: 10/19/2019 Time: 06:39 Bed 8 Private MD: Diagnosis: Urinary tract infection, site not specified;Ascites-Fluid in pelvis Presentation: 10/18 06:45 Method Of Arrival: Ambulatory mg2 06:45 Ebola Screen: No symptoms or risks identified at this time. Initial Sepsis Screen: Does mg2 the patient meet any 2 criteria? No. Patient's initial sepsis screen is negative. Does the patient have a suspected source of infection? No. Patient's initial sepsis screen is negative. Risk Assessment: Do you want to hurt yourself or someone else? Patient reports no desire to harm self or others. Onset of symptoms was September 2019. 06:45 Acuity: FILI 3 mg2 06:45 Chief complaint: Patient states: i have right flank pain radiating to my RLQ for the mg2 last 3 days but worse last night. i also have N/V and headache. history of kidney stones 10 months ago. Coronavirus screen: Proceed with normal triage. Patient denies a cough. Patient denies shortness of breath or difficulty breathing. Patient denies measured and/or subjective temperature greater than 100.4F prior to today's visit. Patient denies travel on a cruise ship or to a country the [facility] currently lists as an affected area. Patient denies contact with known and/or suspected case of COVID-19. Historical: - Allergies: 06:46 Codeine; mg2 - PMHx: 06:46 Anxiety; mg2 - Immunization history:: Flu vaccine status is unknown. Screenin:46 Abuse screen: Denies threats or abuse. Denies injuries from another. Nutritional mg2 screening: No deficits noted. Tuberculosis screening: No symptoms or risk factors identified. 07:30 Fall Risk None identified. sv Assessment: 06:46 General: Appears in no apparent distress. comfortable, Behavior is calm, cooperative. mg2 Neuro: Level of Consciousness is awake, alert, obeys commands, Oriented to person, place, time, situation. Cardiovascular: Capillary refill < 3 seconds Patient's skin is warm and dry. Respiratory: Airway is patent Respiratory effort is even, unlabored, Respiratory pattern is regular, symmetrical. EENT: No signs and/or symptoms were reported regarding the EENT system. Derm: Skin is intact, is healthy with good turgor, Skin is pink, warm \T\ dry. normal. Musculoskeletal: Circulation, motion, and sensation intact. Capillary refill < 3 seconds. 07:05 General: Appears in no apparent distress. uncomfortable, Behavior is calm, cooperative, sv appropriate for age. Pain: Complains of pain in right flank Pain radiates to anterior aspect of right lateral abdomen and right leg Pain currently is 8 out of 10 on a pain scale. Is continuous. Neuro: Level of Consciousness is awake, alert, obeys commands, Oriented to person, place, time, situation, Moves all extremities. Full function Gait is steady. Respiratory: Airway is patent Respiratory effort is even, unlabored, Respiratory pattern is regular, symmetrical. GI: Reports nausea. Derm: Skin is pink, warm \T\ dry. Musculoskeletal: Range of motion: intact in all extremities. 08:27 Reassessment: Patient appears in no apparent distress at this time. No changes from sv previously documented assessment. Patient and/or family updated on plan of care and expected duration. Pain level reassessed. Patient is alert, oriented x 3, equal unlabored respirations, skin warm/dry/pink. Vital Signs: 06:45 BP 146 / 80; Pulse 94; Resp 18; Temp 99; Pulse Ox 99% on R/A; Weight 68.04 kg; Height 5 mg2 ft. 6 in. (167.64 cm); Pain 8/10; 07:31 BP 117 / 69; Pulse 75; Resp 16; Pulse Ox 100% ; sv 08:00 BP 101 / 55; Pulse 74; Resp 16; Pulse Ox 96% ; sv 08:49 BP 112 / 63; Pulse 68; Resp 16; Pulse Ox 98% ; sv 06:45 Body Mass Index 24.21 (68.04 kg, 167.64 cm) mg2 ED Course: 06:39 Patient arrived in ED. cl3 06:40 Kris Malin PA is PHCP. jr8 06:40 Larry Bustos MD is Attending Physician. jr8 06:47 Triage completed. mg2 06:47 Arm band placed on. mg2 06:47 Patient has correct armband on for positive identification. Door closed. Warm blanket mg2 given. 07:00 Yenifer Miller, JESSIE is Primary Nurse. sv 07:05 Inserted saline lock: 20 gauge in right forearm, using aseptic technique. Blood sv collected. Flushed right forearm with 5 ml normal saline. 07:[address] via wheelchair. sv 07:30 Patient moved back from CT. sv 07:33 CT Stone Protocol In Process Unspecified. EDMS 08:13 Urine Culture Sent. sv 09:00 Alondra Cullen MD is Referral Physician. jr8 09:26 No provider procedures requiring assistance completed. IV discontinued, intact, em bleeding controlled, No redness/swelling at site. Pressure dressing applied. Administered Medications: 07:15 Drug: Zofran (Ondansetron) 4 mg Route: IVP; Site: right forearm; sv 08:20 Follow up: Response: No adverse reaction; No change in condition sv 07:15 Drug: NS 0.9% 500 ml Route: IV; Rate: bolus; Site: right forearm; sv 08:20 Follow up: Response: No adverse reaction; IV Status: Completed infusion; IV Intake: sv 500ml 07:16 Drug: TORadol - Ketorolac 15 mg Route: IVP; Site: right forearm; sv 08:20 Follow up: Response: No adverse reaction; No change in condition sv 08:22 Drug: Promethazine 12.5 mg Route: IVP; Site: right forearm; sv 09:23 Follow up: Response: No adverse reaction; Marked relief of symptoms em 08:24 Drug: fentaNYL (PF) 50 mcg {Note: rass1.} Route: IVP; Site: right forearm; sv 09:23 Follow up: Response: No adverse reaction; Marked relief of symptoms; Pain is decreased em 09:20 Drug: Rocephin 1 grams Route: IV; Rate: calculated rate; Site: right forearm; em 09:22 Follow up: Response: No adverse reaction; IV Status: Completed infusion; IV Intake: 10mlsv 09:25 Follow up: Response: No adverse reaction; IV Intake: 10ml em Intake: 08:20 IV: 500ml; Total: 500ml. sv 09:22 IV: 10ml; Total: 510ml. sv 09:25 IV: 10ml; Total: 520ml. em Outcome: 09:02 Discharge ordered by . jr8 09:26 Discharged to home ambulatory. em 09:26 Condition: good 09:26 Discharge instructions given to patient, Instructed on discharge instructions, follow up and referral plans. medication usage, Demonstrated understanding of instructions, follow-up care, medications, Prescriptions given X 3. 09:26 Patient left the ED. em Addendum: 10/22/2019 07:23 Addendum: Culture Results: Positive urine culture. No further action required. Bacteria e b sensitive to prescribed antibiotic. Signatures: Dispatcher [employer] Yenifer Colon RN RN Ge Martinez RN RN Kris Malin PA PA jr8 Bambi Velásquez Michele, RN RN [facility] Leticia Blandon cl3
== END 2019-10-19 09:26 | disposition home or self-care (01) ==
LOC: ER 06:37
DX: N39.0 Urinary tract infection, site not specified (principal); R18.8 Other ascites; Z88.5 Allergy status to narcotic agent
CPT/HCPCS: 96361; 87088; 85025; 87086; 80048; 36415; 81025; 80076; 87077; 87186; 83690; 76377; 74176; 96375; 96374; 99284; J2550; J3010; J0696; J7040; J2405; 81003; 81015

== ENCOUNTER 2020-07-11 09:12 | Emergency (ER) | payer BC, SELFPAY ==
[2020-07-11] MEDS ORDERED: PROMETHAZINE INJ 25 MG/ML AMP ONE (09:55)
[2020-07-11] MEDS ORDERED: NA CHLORIDE 0.9% 1,000 ML ONE ×2 (09:55→10:59)
[2020-07-11] MEDS ORDERED: DICYCLOMINE HCL 10 MG CAP ONE (09:55)
[2020-07-11 10:11] LABS: Absolute Lymphocytes (CBC) 0.5 K/uL (0.7-4.9); Basophils % 0.1 % (0-1.3); Hematocrit 37.2 % (36.0-45.0); Lymphocytes % 1.9 % (15.3-44.8); MPV 7.6 fL (7.6-11.3); RBC Red Blood Cell Count 5.93 M/uL (3.86-4.86)
[2020-07-11 10:24] LABS: ALT/SGPT 35 U/L (12-78); AST/SGOT 20 U/L (15-37); Albumin 4.5 g/dL (3.4-5.0); Alkaline Phosphatase 83 U/L (45-117); BUN Blood Urea Nitrogen 18 mg/dL (7-18); Bicarbonate 18 mmol/L (21-32); Bilirubin Direct 0.3 mg/dL (0-0.2); Glucose Level 138 mg/dL (74-106); Lipase 121 U/L (73-393); Potassium 4.1 mmol/L (3.5-5.1); Protein, Total 8.3 g/dL (6.4-8.2); Sodium Level 138 mmol/L (136-145)
--- NOTE | 2020-07-11 10:31 | RAD REPORT ---
EXAM DESCRIPTION: RAD - Abdomen Acute Series - 07/11/2020 10:16 am CLINICAL HISTORY: ABD PAIN COMPARISON: Abdomen Acute Series dated 01/03/2019 FINDINGS: Lungs are clear. Heart size and pulmonary vasculature are normal. No pleural effusion, pne umothorax or other acute cardiopulmonary process seen. No change from comparison. Bowel gas pattern is nonspecific. No bowel obstruction, free air or other acute findings. No suspicio us calcifications. Lumbar spine and left convex rotoscoliosis again noted. No acute bone finding. IMPRESSION: Negative acute abdomen series for acute or suspicious finding. No significant change the 2019 study.
[2020-07-11 11:09] LABS: Blood Morphology Comment NOTED (NOT SEEN); Hypochromasia 1+; Platelet Estimate INCR
[2020-07-11 11:10] LABS: Basophilic Stippling 1+
--- NOTE | 2020-07-11 11:29 | ER ---
Nurse's Notes [facility] Name: Mari Chicas Age: 35 yrs Sex: Female : 1985 Arrival Date: 07/11/2020 Time: 09:14 Bed 10 Private MD: Diagnosis: Acute Gastroenteritis Presentation: 07/11 09:18 Chief complaint: Upper abdominal pain and N/V/D since 0230 today. Denies fever. hb Coronavirus screen: Client presents with at least one sign or symptom that may indicate coronavirus-19. Standard/surgical mask placed on the client. Provider contacted for isolation considerations. Ebola Screen: No symptoms or risks identified at this time. Initial Sepsis Screen: Does the patient meet any 2 criteria? No. Patient's initial sepsis screen is negative. Does the patient have a suspected source of infection? No. Patient's initial sepsis screen is negative. Risk Assessment: Do you want to hurt yourself or someone else? Patient reports no desire to harm self or others. Onset of symptoms was July 11, 2020. 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 - Social history:: Smoking status: Patient reports the use of cigarette tobacco products, smokes one-half pack cigarettes per day. Screenin:24 Abuse screen: Denies threats or abuse. Nutritional screening: No deficits noted. tw2 Tuberculosis screening: No symptoms or risk factors identified. Fall Risk None identified. Assessment: 09:30 General: Appears in no apparent distress. uncomfortable, slender, well groomed, tw2 Behavior is calm, cooperative, appropriate for age. Pain: Denies pain. Neuro: Level of Consciousness is awake, alert, obeys commands, Oriented to person, place, time, situation. Cardiovascular: Patient's skin is warm and dry. Respiratory: Airway is patent Respiratory effort is even, unlabored, Respiratory pattern is regular, symmetrical. GI: Abdomen is flat, Reports intolerance of fluids, intolerance of food, nausea, vomiting. : No signs and/or symptoms were reported regarding the genitourinary system. EENT: No signs and/or symptoms were reported regarding the EENT system. Derm: No signs and/or symptoms reported regarding the dermatologic system. Musculoskeletal: Range of motion: intact in all extremities. 10:46 Reassessment: Patient appears in no apparent distress at this time. Patient and/or tw2 family updated on plan of care and expected duration. Pain level reassessed. Patient is alert, oriented x 3, equal unlabored respirations, skin warm/dry/pink. Patient states feeling better. Patient states symptoms have improved. 11:44 Reassessment: Patient appears in no apparent distress at this time. Patient and/or tw2 family updated on plan of care and expected duration. Pain level reassessed. Patient is alert, oriented x 3, equal unlabored respirations, skin warm/dry/pink. Vital Signs: 09:18 BP 129 / 83; Pulse 103; Resp 16; Temp 97.7; Pulse Ox 100% on R/A; Weight 72.57 kg; hb Height 5 ft. 6 in. (167.64 cm); Pain 9/10; 11:43 BP 122 / 79; Pulse 88; Resp 19; Pulse Ox 99% on R/A; tw2 09:18 Body Mass Index 25.82 (72.57 kg, 167.64 cm) hb ED Course: 09:14 Patient arrived in ED. as 09:19 Triage completed. hb 09:20 Arm band placed on. hb 09:22 Nancy Beltran RN is Primary Nurse. tw2 09:22 Kris Malin PA is PHCP. jr8 09:22 Edilberto Huston MD is Attending Physician. jr8 09:23 Call light in reach. Pulse ox on. NIBP on. tw2 10:12 XRAY Abdomen Acute Series In Process Unspecified. EDMS 11:43 No provider procedures requiring assistance completed. IV discontinued, intact, tw2 bleeding controlled, No redness/swelling at site. Pressure dressing applied. 11:56 Primary Nurse role handed off by Nancy Beltran, RN tw2 11:59 Nancy Beltran RN is Primary Nurse. tw2 Administered Medications: 09:55 Drug: NS 0.9% 1000 ml Route: IV; Rate: 1000 ml; Site: right wrist; tw2 10:45 Follow up: Response: No adverse reaction; IV Status: Completed infusion; IV Intake: tw2 1000ml 09:55 Drug: Promethazine 12.5 mg Route: IVP; Site: right wrist; tw2 10:37 Follow up: Response: No adverse reaction; Nausea is decreased tw2 10:23 Drug: Bentyl 20 mg Route: PO; tw2 11:48 Follow up: Response: No adverse reaction tw2 10:45 Drug: NS 0.9% 1000 ml Route: IV; Rate: 1000 ml; Site: right wrist; tw2 11:48 Follow up: IV Status: Completed infusion; IV Intake: 1000ml tw2 Intake: 10:45 IV: 1000ml; Total: 1000ml. tw2 11:48 IV: 1000ml; Total: 2000ml. tw2 Outcome: 11:28 Discharge ordered by . jrKerri 11:43 Discharged to home ambulatory. tw2 11:43 Condition: stable 11:43 Discharge instructions given to patient, Instructed on discharge instructions, follow up and referral plans. medication usage, Demonstrated understanding of instructions, follow-up care, medications, Prescriptions given X 1. 11:48 Patient left the ED. tw2 11:59 Patient left the ED. tw2 Signatures: Dispatcher [employer] EDMS Marely Fallon Josh, PA PA jrEssence Bradley, JESSIE ROMAN Nancy Beltran RN RN tw2
--- NOTE | 2020-07-11 11:29 | EDPHYS ---
Physician Documentation [facility] Name: Mari Chicas Age: 35 yrs Sex: Female : 1985 Arrival Date: 07/11/2020 Time: 09:14 Bed 10 Private MD: ED Physician Edilberto Huston HPI: 07/11 10:15 This 35 yrs old Female presents to ER via Ambulatory with complaints of jr8 Vomiting. 10:15 The patient presents to the emergency department with nausea, vomiting. Onset: The jr8 symptoms/episode began/occurred acutely, yesterday. Possible causes: sick contacts, by family, her children. The symptoms are aggravated by nothing. The symptoms are alleviated by nothing. Associated signs and symptoms: The patient has no apparent associated signs or symptoms. Severity of symptoms: At their worst the symptoms were moderate in the emergency department the symptoms are unchanged. The patient has not experienced similar symptoms in the past. The patient has not recently seen a physician. Patient stated that her children has a viral GI infection. Stated that she has had vomiting throughout night with abdominal cramping. Feels dehydrated and cannot get nausea to go away. History of adhesions with SBO in past as well . 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 - Social history:: Smoking status: Patient reports the use of cigarette tobacco products, smokes one-half pack cigarettes per day. ROS: 10:15 Constitutional: Negative for fever, chills, and weight loss. jr8 10:15 Abdomen/GI: Positive for nausea and vomiting, abdominal cramps, Negative for abdominal pain, diarrhea, abdominal distension, anorexia, dysphagia, hematemesis, black/tarry stool, rectal pain, rectal bleeding, bowel incontinence, flatulence. 10:15 All other systems are negative. Exam: 10:15 Constitutional: This is a well developed, well nourished patient who is awake, alert, jr8 and in no acute distress. ENT: Nares patent. No nasal discharge, no septal abnormalities noted. Tympanic membranes are normal and external auditory canals are clear. Oropharynx with no redness, swelling, or masses, exudates, or evidence of obstruction, uvula midline. Mucous membranes moist. Neck: Trachea midline, no thyromegaly or masses palpated, and no cervical lymphadenopathy. Supple, full range of motion without nuchal rigidity, or vertebral point tenderness. No Meningismus. Cardiovascular: Regular rate and rhythm with a normal S1 and S2. No gallops, murmurs, or rubs. Normal PMI, no JVD. No pulse deficits. Respiratory: Lungs have equal breath sounds bilaterally, clear to auscultation and percussion. No rales, rhonchi or wheezes noted. No increased work of breathing, no retractions or nasal flaring. Back: No spinal tenderness. No costovertebral tenderness. Full range of motion. Skin: Warm, dry with normal turgor. Normal color with no rashes, no lesions, and no evidence of cellulitis. MS/ Extremity: Pulses equal, no cyanosis. Neurovascular intact. Full, normal range of motion. Neuro: Awake and alert, GCS 15, oriented to person, place, time, and situation. Cranial nerves II-XII grossly intact. Motor strength 5/5 in all extremities. Sensory grossly intact. 10:15 Abdomen/GI: Inspection: abdomen appears normal, Bowel sounds: diminished, in all quadrants, Palpation: abdomen is soft and non-tender, in all quadrants, Indicators: McBurney's point is not tender, Joel's sign is negative, Rovsing's sign is negative, Liver: tenderness, is not appreciated. Vital Signs: 09:18 BP 129 / 83; Pulse 103; Resp 16; Temp 97.7; Pulse Ox 100% on R/A; Weight 72.57 kg; hb Height 5 ft. 6 in. (167.64 cm); Pain 9/10; 11:43 BP 122 / 79; Pulse 88; Resp 19; Pulse Ox 99% on R/A; tw2 09:18 Body Mass Index 25.82 (72.57 kg, 167.64 cm) hb MDM: 09:22 Patient medically screened. jr8 10:38 Data reviewed: vital signs, nurses notes, lab test result(s), radiologic studies, plain jr8 films. Data interpreted: Pulse oximetry: on room air is 100 %. Interpretation: normal. Counseling: I had a detailed discussion with the patient and/or guardian regarding: the historical points, exam findings, and any diagnostic results supporting the discharge/admit diagnosis, lab results, radiology results, the need for outpatient follow up, a family practitioner, to return to the emergency department if symptoms worsen or persist or if there are any questions or concerns that arise at home. Response to treatment: the patient's symptoms have markedly improved after treatment, patient is well hydrated. ED course: No acute findings on imaging. Reevaluation of abdomen unremarkable. No pain with palpation. Patient does have elevated WBC count but without fevers and again abdominal exam and imaging unremarkable. Would not CT scan at this time as it is mostly viral in etiology and she is volume contracted. Discussed with her if she is worse to come back. S/S given to patient to watch for which would signify worsening of condition and emergent abdominal findings. Patient good with plan. 07/11 09:35 Order name: Basic Metabolic Panel; Complete Time: 10: [facility] 07/11 09:35 Order name: CBC with Diff; Complete Time: 11: [facility] 07/11 09:35 Order name: Hepatic Function; Complete Time: 10: [facility] 07/11 09:35 Order name: Lipase; Complete Time: 10: [facility] 07/11 09:35 Order name: XRAY Abdomen Acute Series; Complete Time: 10:38 [facility] 07/11 11:09 Order name: Manual Differential; Complete Time: 11:27 [facility] 07/11 09:35 Order name: IV Saline Lock; Complete Time: 10: [facility] 07/11 09:35 Order name: Labs collected and sent; Complete Time: 10: Administered Medications: 09:55 Drug: NS 0.9% 1000 ml Route: IV; Rate: 1000 ml; Site: right wrist; tw2 10:45 Follow up: Response: No adverse reaction; IV Status: Completed infusion; IV Intake: tw2 1000ml 09:55 Drug: Promethazine 12.5 mg Route: IVP; Site: right wrist; tw2 10:37 Follow up: Response: No adverse reaction; Nausea is decreased tw2 10:23 Drug: Bentyl 20 mg Route: PO; tw2 11:48 Follow up: Response: No adverse reaction tw2 10:45 Drug: NS 0.9% 1000 ml Route: IV; Rate: 1000 ml; Site: right wrist; tw2 11:48 Follow up: IV Status: Completed infusion; IV Intake: 1000ml tw2 Disposition: 07/12 05:38 Co-signature as Attending Physician, Edilberto Huston MD I agree with the assessment and tara plan of care. Disposition: 07/11/20 11:28 Discharged to Home. Impression: Acute Gastroenteritis. - Condition is Stable. - Discharge Instructions: Viral Gastroenteritis, Adult. - Prescriptions for Bentyl 20 mg Oral Tablet - take 1 tablet by ORAL route every 6 hours As needed; 20 tablet. promethazine 25 mg Oral Tablet - take 1 tablet by ORAL route every 6 hours As needed; 20 tablet. - Medication Reconciliation Form, Thank You Letter, Antibiotic Education, Prescription Opioid Use form. - Follow up: Private Physician; When: 2 - 3 days; Reason: Recheck today's complaints, Continuance of care, Re-evaluation by your physician. - Problem is new. - Symptoms have improved. Signatures: Dispatcher [employer] EDMO Edilberto Huston MD MD cha Roszak, Josh, PA PA jr8 Essence Marley, JESSIE RN Nancy Beltran RN RN tw2 Corrections: (The following items were deleted from the chart) 07/11 11:48 11:28 07/11/2020 11:28 Discharged to Home. Impression: Acute Gastroenteritis. Condition tw2 is Stable. Forms are Medication Reconciliation Form, Thank You Letter, Antibiotic Education, Prescription Opioid Use. Follow up: Private Physician; When: 2 - 3 days; Reason: Recheck today's complaints, Continuance of care, Re-evaluation by your physician. Problem is new. Symptoms have improved. jr8 11:59 11:48 07/11/2020 11:28 Discharged to Home. Impression: Acute Gastroenteritis. Condition tw2 is Stable. Discharge Instructions: Viral Gastroenteritis, Adult. Prescriptions for Bentyl 20 mg Oral Tablet - take 1 tablet by ORAL route every 6 hours As needed; 20 tablet, promethazine 25 mg Oral Tablet - take 1 tablet by ORAL route every 6 hours As needed; 20 tablet. and Forms are Medication Reconciliation Form, Thank You Letter, Antibiotic Education, Prescription Opioid Use. Follow up: Private Physician; When: 2 - 3 days; Reason: Recheck today's complaints, Continuance of care, Re-evaluation by your physician. Problem is new. Symptoms have improved. tw2
[2020-07-11 11:53] VITALS: TEMP 97.7
[2020-07-11 11:54] VITALS: BP 122/79; O2SAT 99
== END 2020-07-11 11:59 | disposition home or self-care (01) ==
LOC: ER 09:12
DX: K52.9 Noninfective gastroenteritis and colitis, unspecified (principal); F17.210 Nicotine dependence, cigarettes, uncomplicated; Z88.5 Allergy status to narcotic agent
CPT/HCPCS: 36415; 74022; 80048; 80076; 83690; 85025; 96361; 96374; 99284; J2550; J7030

== ENCOUNTER 2020-09-28 22:30 | Emergency (ER) | payer SELFPAY ==
--- NOTE | 2020-09-29 00:14 | ER ---
Nurse's Notes [facility] Name: Mari Chicas Age: 35 yrs Sex: Female : 1985 Arrival Date: 09/28/2020 Time: 22:33 Bed 12 Private MD: Diagnosis: Anxiety disorder, unspecified;Nausea with vomiting, unspecified Presentation: 09/28 23:07 Chief complaint: Patient states: she has been having an anxiety attack all day and bb cannot stop it now she is vomiting she took phenergran 25 mg but it is not helping. She used to take Xanax for the same symptoms in the past but has not taken any in a long time. Coronavirus screen: At this time, the client does not indicate any symptoms associated with coronavirus-19. Ebola Screen: No symptoms or risks identified at this time. Initial Sepsis Screen: Does the patient meet any 2 criteria? No. Patient's initial sepsis screen is negative. Does the patient have a suspected source of infection? No. Patient's initial sepsis screen is negative. Risk Assessment: Do you want to hurt yourself or someone else? Patient reports no desire to harm self or others. Onset of symptoms was September 28, 2020. 23:07 Method Of Arrival: Ambulatory bb 23:07 Acuity: FILI 5 bb Triage Assessment: 23:10 General: Appears uncomfortable, Behavior is anxious. Pain: Denies pain. Neuro: Level of bb Consciousness is awake, alert, obeys commands, Oriented to person, place, time, situation. Cardiovascular: Capillary refill < 3 seconds Patient's skin is warm and dry. Respiratory: Respiratory effort is unlabored, Respiratory pattern is tachypnea. GI: Abdomen is non-distended, Reports vomiting. Derm: Skin is pink, warm \\T\\ dry. Musculoskeletal: Circulation, motion, and sensation intact. 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 - Social history:: Smoking status: Patient reports the use of cigarette tobacco products, smokes one-half pack cigarettes per day, Patient uses street drugs, marijuana, Patient/guardian denies using alcohol. Screenin/09 00:00 Abuse screen: Denies threats or abuse. Nutritional screening: No deficits noted. bb Tuberculosis screening: No symptoms or risk factors identified. Fall Risk None identified. Assessment: 00:00 General: Appears uncomfortable, Behavior is anxious. Pain: Denies pain. Neuro: Level of bb Consciousness is awake, alert, obeys commands, Oriented to person, place, time, situation. Cardiovascular: No deficits noted. Respiratory: Respiratory effort is unlabored. GI: Abdomen is non-distended, Reports vomiting. Derm: Skin is pink, warm \\T\\ dry. Musculoskeletal: Circulation, motion, and sensation intact. 00:15 Reassessment: pt refused Zofran states it will not help her. Pt also refused Xanax bb states she just wants the the "vomiting to stop". Dr Loja notified new orders received pt medicated see JUL. 00:25 Reassessment: pt states now she thinks she needs the Xanax after all. Dr Purvi grier notified new orders received pt medicated see JUL. 00:36 Reassessment: Patient is alert, oriented x 3, equal unlabored respirations, skin bb warm/dry/pink. pt verbalized understanding of and agrees to plan of care discharge instructions given pt ambulated with steady gait to exit accompanied by family. Vital Signs: 09/28 23:07 BP 132 / 84; Pulse 104; Resp 22 S; Temp 98.1(TE); Pulse Ox 99% on R/A; Weight 77.11 kg bb (R); Height 5 ft. 5 in. (165.10 cm) (R); Pain 0/10; 23:07 Body Mass Index 28.29 (77.11 kg, 165.10 cm) bb ED Course: 22:33 Patient arrived in ED. es 23:09 Triage completed. bb 23:10 Arm band placed on Patient placed in waiting room, Patient notified of wait time. bb 23:32 Virgil Loja MD is Attending Physician. tw4 09/29 00:00 Patient has correct armband on for positive identification. Call light in reach. Adult bb w/ patient. 00:00 No provider procedures requiring assistance completed. Patient did not have IV access bb during this emergency room visit. Administered Medications: 00:15 Drug: Phenergan (promethazine) 25 mg Route: IM; Site: right gluteus; bb 00:36 Follow up: Response: No adverse reaction; Nausea is decreased bb 00:36 Not Given (Patient Refused): XANax (alprazolam) Tablet 1 mg PO once bb 00:36 Not Given (Patient Refused): Ondansetron 4 mg PO once bb 00:36 Drug: XANax (alprazolam) Tablet 0.5 mg Route: PO; bb 01:25 Follow up: Response: Medication administered at discharge. bb Outcome: 00:13 Discharge ordered by . tw4 00:36 Patient left the ED. bb 00:36 Discharged to home ambulatory, with family. bb 00:36 Condition: stable 00:36 Discharge instructions given to patient, Instructed on discharge instructions, follow up and referral plans. medication usage, Demonstrated understanding of instructions, follow-up care, medications, Prescriptions given X 2. Signatures: Peggy Willson Brenda, RN RN bb Virgil Loja MD MD tw4 Corrections: (The following items were deleted from the chart) 00:35 00:03 XANax (alprazolam) Tablet 1 mg PO bb bb 00:35 00:03 Ondansetron 4 mg PO bb bb
--- NOTE | 2020-09-29 00:14 | EDPHYS ---
Physician Documentation [facility] Name: Mari Chicas Age: 35 yrs Sex: Female : 1985 Arrival Date: 09/28/2020 Time: 22:33 Bed 12 Private MD: ED Physician Virgil Loja HPI: 09/29 20:49 This 35 yrs old Female presents to ER via Ambulatory with complaints of tw4 Anxiety. 20:49 The patient presents to the emergency department with anxiety. tw4 20:49 Onset: The symptoms/episode began/occurred today. Past psychiatric history: Prior tw4 diagnosis: no previous psychiatric diagnosis known. Associated signs and symptoms: The patient has no apparent associated signs or symptoms. The patient has not experienced similar symptoms in the past. 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 - Social history:: Smoking status: Patient reports the use of cigarette tobacco products, smokes one-half pack cigarettes per day, Patient uses street drugs, marijuana, Patient/guardian denies using alcohol. ROS: 09/29 20:49 Constitutional: Negative for fever, chills, and weight loss, Eyes: Negative for injury, tw4 pain, redness, and discharge, Cardiovascular: Negative for chest pain, palpitations, and edema, Respiratory: Negative for shortness of breath, cough, wheezing, and pleuritic chest pain. Abdomen/GI: Positive for nausea and vomiting, nausea, vomiting, and diarrhea, nausea, vomiting, Negative for abdominal pain, diarrhea, constipation, abdominal cramps, abdominal distension, anorexia, dysphagia, hematemesis, black/tarry stool, rectal pain, rectal bleeding, bowel incontinence. Exam: 20:49 Head/Face: Normocephalic, atraumatic. Chest/axilla: Normal chest wall appearance and tw4 motion. Nontender with no deformity. No lesions are appreciated. Cardiovascular: Regular rate and rhythm with a normal S1 and S2. No gallops, murmurs, or rubs. Normal PMI, no JVD. No pulse deficits. Respiratory: Lungs have equal breath sounds bilaterally, clear to auscultation and percussion. No rales, rhonchi or wheezes noted. No increased work of breathing, no retractions or nasal flaring. 20:49 Skin: Warm, dry with normal turgor. Normal color with no rashes, no lesions, and no evidence of cellulitis. MS/ Extremity: Pulses equal, no cyanosis. Neurovascular intact. Full, normal range of motion. Neuro: Awake and alert, GCS 15, oriented to person, place, time, and situation. Cranial nerves II-XII grossly intact. Motor strength 5/5 in all extremities. Sensory grossly intact. Cerebellar exam normal. Normal gait. 20:49 Constitutional: The patient appears anxious. 20:49 Abdomen/GI: Inspection: Bowel sounds: Palpation: Vital Signs: 09/28 23:07 BP 132 / 84; Pulse 104; Resp 22 S; Temp 98.1(TE); Pulse Ox 99% on R/A; Weight 77.11 kg bb (R); Height 5 ft. 5 in. (165.10 cm) (R); Pain 0/10; 23:07 Body Mass Index 28.29 (77.11 kg, 165.10 cm) bb MDM: 23:55 Patient medically screened. tw4 05 20:49 Data reviewed: vital signs, nurses notes. Data interpreted: Pulse oximetry: tw4 Interpretation: normal. Counseling: I had a detailed discussion with the patient and/or guardian regarding: the historical points, exam findings, and any diagnostic results supporting the discharge/admit diagnosis. Special discussion: I discussed with the patient/guardian in detail that at this point there is no indication for admission to the hospital. It is understood, however, that if the symptoms persist or worsen the patient needs to return immediately for re-evaluation. Administered Medications: 00:15 Drug: Phenergan (promethazine) 25 mg Route: IM; Site: right gluteus; bb 00:36 Follow up: Response: No adverse reaction; Nausea is decreased bb 00:36 Not Given (Patient Refused): XANax (alprazolam) Tablet 1 mg PO once bb 00:36 Not Given (Patient Refused): Ondansetron 4 mg PO once bb 00:36 Drug: XANax (alprazolam) Tablet 0.5 mg Route: PO; bb 01:25 Follow up: Response: Medication administered at discharge. bb Disposition: 09/29/20 00:13 Discharged to Home. Impression: Anxiety disorder, unspecified, Nausea with vomiting, unspecified. - Condition is Stable. - Discharge Instructions: Panic Attacks, Social Anxiety Disorder, Generalized Anxiety Disorder. - Prescriptions for Phenergan 12.5 mg Rectal Suppository - insert 1 suppository by RECTAL route every 6 hours As needed; 12 suppository. promethazine 25 mg Oral Tablet - take 1 tablet by ORAL route every 6 hours As needed; 20 tablet. - Medication Reconciliation Form, Thank You Letter, Antibiotic Education, Prescription Opioid Use form. - Follow up: Private Physician; When: Upon discharge from the Emergency Department; Reason: Recheck today's complaints, Continuance of care, Re-evaluation by your physician. - Problem is new. - Symptoms have improved. Signatures: Becky Watt RN RN Virgil Pulido MD MD tw4 Corrections: (The following items were deleted from the chart) 00:36 00:13 09/29/2020 00:13 Discharged to Home. Impression: Anxiety disorder, unspecified; bb Nausea with vomiting, unspecified. Condition is Stable. Forms are Medication Reconciliation Form, Thank You Letter, Antibiotic Education, Prescription Opioid Use. Follow up: Private Physician; When: Upon discharge from the Emergency Department; Reason: Recheck today's complaints, Continuance of care, Re-evaluation by your physician. Problem is new. Symptoms have improved. tw4
[2020-09-29] MEDS ORDERED: ONDANSETRON 4 MG (ODT) TAB ONE (00:24)
[2020-09-29] MEDS ORDERED: ALPRAZOLAM 1 MG TABLET ONE (00:24)
[2020-09-29] MEDS ORDERED: PROMETHAZINE INJ 25 MG/ML AMP ONE (00:31)
[2020-09-29] MEDS ORDERED: ALPRAZOLAM 0.5 MG TABLET ONE (00:52)
[2020-09-29 04:09] VITALS: BP 132/84; TEMP 98.1; O2SAT 99
== END 2020-09-29 00:36 | disposition home or self-care (01) ==
LOC: ER 22:30
DX: F41.9 Anxiety disorder, unspecified (principal); F17.210 Nicotine dependence, cigarettes, uncomplicated; Z88.5 Allergy status to narcotic agent
CPT/HCPCS: 96372; 99283; J2550

== ENCOUNTER 2022-08-07 12:58 | Emergency (ER) | payer SELFPAY ==
--- OUTSIDE RECORDS SUMMARY | 2022-08-07 13:01 | XMS REPORT | Continuity of Care Document ---
:1985 Author Organization [facility] t Address [address] [place] [address] [address] [place] [address] Care Team Providers Name Role Phone Roseanne Lambert Attending Clinician Unavailable Physician, No Primary or Family Admitting Clinician Unavaila ble Payers Payer Name Policy Type Policy Number Effective Date Expiration Date S ource Problems This patient has no known problems. Allergies, Adverse Reactions, Alerts Allergy Allergy Status Severity Reaction(s) Onset Inactive Treating Comm ents Source Name Type Date Date Clinician No Known DA Active U [facility] 02-17 [facility] 00:00: [address] No Known DA Active U [facility] 6-30 [facility] 00:00: [address] Medications This patient has no known medications. Procedures This patient has no known procedures. Encounters Start End Encounter Admission Attending Care Care Encounter Source Date/Time Date/Time Type Type Clinicians Facility Department ID 2021-02-17 2021-02-18 Inpatient EM KATRIN Lambert [facility] [id number] [facility] 19:59:00 02:03:00 Roseanne 72 [facility] 2021-02-17 2021-02-17 Outpatient SHIRLENE Lambert LABO [id number] [facility] 23:35:00 23:35:00 Roseanne 56 [facility] Results Test Description Test Time Test Comments Results Result Comments Source URINALYSIS COMPLETE 2021-02-17 23:24:00 Test Item Value Reference Range Interpretation Comme nts UA COLOR (test code = COLU) YELLOW YELLOW UA APPEARANCE (test code = APPU) HAZY CLEAR A UA GLUCOSE DIPSTICK (test code = DGLUU) norm mg/dL NEGATIVE UA BILIRUBIN DIPSTICK (test code = BILU) NEGATIVE mg/dL NEGATIVE UA KETONE DIPSTICK (test code = KETU) 150 (4+) mg/dL NEGATIVE A UA SPECIFIC GRAVITY (test code = SGU) 1.020 1.001-1.035 UA BLOOD DIPSTICK (test code = PATRICE) 25 (1+) Kenneth/uL NEGATIVE A UA PH DIPSTICK (test code = MARK) 6.0 5.0-8.0 UA PROTEIN DIPSTICK (test code = PROU) 100 (2+) mg/dL Neg-15 A UA UROBILINIOGEN DIPSTICK (test code = URO) 1 mg/dL 0.0-0.2 A UA NITRITE DIPSTICK (test code = HEIDE) POSITIVE NEGATIVE UA LEUKOCYTE ESTERASE DIPSTICK (test code = 500 Cary/uL (3+) uL NEGA TIVE A LEUU) UA WBC (test code = WBCU) 20-30 per HPF 0-5 A UA RBC (test code = RBCU) 3-5 per HPF 0-5 UA EPITHELIAL CELLS (test code = EPIU) Few (2-5/hpf) per HPF Few UA BACTERIA (test code = BACU) MANY per HPF NONE A Urine Source? Clean CatchUR HCG [id number] 23:17:00 Test Item Value Reference Range Interpretation Comments UR HCG QUAL (test NEGATIVE This HCGQL test is NOT code = HCGQLU) applicable fo r MALE patients.Check with nurse about probable order error.If Tumor Marker Test needed, nu rse should order test "HCG TU"(Test #[id number])---- - - XR CHEST 1 [id number] 22:34:00 [facility]Name: HANNY MON : 1985 Sex: F Name: HANNY MON [facility] : 1985 Age/S:36 /F [address] [facility] Unit#:[id number] Loc: [place] [address] Phys: Roseanne Lambert DO Dis Date: PHONE #: [phone] Status: PRE ER FAX #: [phone] Exam Date: 02/17/2021 Reason: CHEST PAIN EXAMS: CPT CODE: [id number] XR CHEST 1 V 62029 Examination: One view chest x-ray Location c ode: H60 Comparison: None Discussion: Clinical history is remarkable for chest pain. Heart is normalin size. Lungs are clear of consolidating infiltrates. No masses, nodules or effusions identified. Impression: 1. Normal one view chest x- ray. at 2234 Reported and signed by: Bharathi Terry M.D. CC: Roseanne Lambert DO Technologist: ALIVIA FELDMAN RT(R),RDMS,CT Trnscrpt Data: 02/17/2021 (2233) [id number] Orig Print D/T: S: 02/17/2021 (5746) PAGE1 Signed ReportBASIC METABOLIC PANEL 2021-02-17 22:30:00 Test Item Value Reference Range Interpretation Comments SODIUM (test code = 138 mmol/L 136-145 N NA) POTASSIUM (test code 3.7 mmol/L 3.5-5.1 N = K) CHLORIDE (test code = 104 mmol/L 101-109 N CL) CARBON DIOXIDE (test 19.5 mmol/L 21-32 L code = CO2) ANION GAP (test code 18 mmol/L 10-20 N = GAP) GLUCOSE (test code = 121 mg/dL 74-106 H GLU) BLOOD UREA NITROGEN 11 mg/dL 3-21 N (test code = BUN) GLOMERULAR FILTRATION > 60 mL/min See_Comment Estima donna GFR by RATE (test code = using Nisa fied MDRD GFR) formula.Chronic kidney disease is defined as eith er kidney damageor GFR <60 mL/min/1.73 m2 for >3 months. [Automated mess age] The system Zephyr generated this result transmitted ref erence range: >=60. Th e reference range was not used to int erpret this result as normal/abnormal . CREATININE (test code 0.78 mg/dL 0.55-1.3 N = CREAT) BUN/CREATININE RATIO 14.1 10-20 N (test code = BUN/CREA) CALCIUM (test code = 9.4 mg/dL 8.4-10.2 N CA) [id number] 22:30:00 Test Item Value Reference Range Interpretation Comments TROPONIN-I (test code = TROPI) <0.015 ng/mL 0.00-0.056 N CBC W/O [id number] 22:08:00 Test Item Value Reference Range Interpretation Comments WHITE BLOOD CELL (test code = 9.6 K/mm3 4.5-12.5 N WBC) RED BLOOD CELL (test code = 5.65 mill/mm3 3.7-5.2 H RBC) HEMOGLOBIN (test code = HGB) 11.9 gram/dL 11.5-15.5 N HEMATOCRIT (test code = HCT) 36.9 % 36.0-46.0 N MEAN CELL VOLUME (test code = 65.3 fL 80-98 L MCV) MEAN CELL HGB (test code = MCH) 21.1 picogram 27.0-33.0 L MEAN CELL HGB CONCETRATION 32.2 gram/dL 33.0-36.0 L (test code = MCHC) RED CELL DISTRIBUTION WIDTH 15.9 % 11.6-16.2 N (test code = RDW) RED CELL DISTRIBUTION WIDTH SD 35.6 fL 37.0-51.0 L (test code = RDW-SD) PLATELET COUNT (test code = 409 K/mm3 150-450 N PLT) MEAN PLATELET VOLUME (test code 9.1 fL 6.7-11.0 N = MPV) COVID 19 INHOUSE [id number] 21:25:00 Test Item Value Reference Range Interpretation Comments COVID 19 INHOUSE AG (test code = POSITIVE NEGATIVE [id number])
--- NOTE | 2022-08-07 13:08 | EDPHYS ---
Physician Documentation [facility] Name: Mari Chicas Age: 37 yrs Sex: Female : 1985 Arrival Date: 08/07/2022 Time: 13:00 Bed Waiting Private MD: MÓNICA Physician Chad Pompa Historical: - Allergies: 08/07 13:03 Codeine; hb - PMHx: 13:03 Anxiety; hb - Immunization history:: Adult Immunizations up to date. - Social history:: Smoking status: Patient reports the use of cigarette tobacco products, smokes one-half pack cigarettes per day. Vital Signs: 13:02 BP 146 / 90; Pulse 103; Resp 18; Temp 97.7; Pulse Ox 100% on R/A; Weight 81.65 kg; hb Height 5 ft. 5 in. ; Pain 10/10; 13:02 Body Mass Index 29.95 (81.65 kg, 165.1 cm) hb 13:02 Pain Scale: Adult hb MDM: 13:02 Patient medically screened. [facility] Administered Medications: No medications were administered Disposition Summary: 08/07/22 13:07 Discharge Ordered Location: Home [facility] Problem: new [facility] Symptoms: are unchanged [facility] Condition: Stable [facility] Diagnosis - Fractured tooth 7 - Dental abscess [facility] Followup: [facility] - With: Private Physician - When: 2 - 3 days - Reason: Recheck today's complaints Forms: - Medication Reconciliation Form [facility] - Thank You Letter 7 - Antibiotic Education 7 - Prescription Opioid Use [facility] Signatures: Essence Marley, RN RN Wanda Ferris FNP DYNAMITE RECLAIMER [facility]
--- NOTE | 2022-08-07 13:08 | ER ---
Nurse's Notes [facility] Name: Mari Chicas Age: 37 yrs Sex: Female : 1985 Arrival Date: 08/07/2022 Time: 13:00 Bed Waiting Private MD: Diagnosis: Fractured tooth;Dental abscess Presentation: 08/07 13:02 Chief complaint: Right lower molar pain 10/10 since yesterday. Coronavirus screen: At hb this time, the client does not indicate any symptoms associated with coronavirus-19. Ebola Screen: No symptoms or risks identified at this time. Initial Sepsis Screen: Does the patient meet any 2 criteria? No. Patient's initial sepsis screen is negative. Does the patient have a suspected source of infection? No. Patient's initial sepsis screen is negative. Risk Assessment: Do you want to hurt yourself or someone else? Patient reports no desire to harm self or others. Onset of symptoms was August 06, 2022. 13:02 Method Of Arrival: Ambulatory hb 13:02 Acuity: FILI 4 hb Triage Assessment: 13:03 General: Appears in no apparent distress. Behavior is calm, cooperative. Pain: Pain hb currently is 10 out of 10 on a pain scale. EENT: Reports pain since right lower molar. Neuro: Level of Consciousness is awake, alert, obeys commands, Oriented to person, place, time, situation. Cardiovascular: Patient's skin is warm and dry. Respiratory: Respiratory effort is even, unlabored, Respiratory pattern is regular, symmetrical. Historical: - Allergies: 13:03 Codeine; hb - PMHx: 13:03 Anxiety; hb - Immunization history:: Adult Immunizations up to date. - Social history:: Smoking status: Patient reports the use of cigarette tobacco products, smokes one-half pack cigarettes per day. Assessment: 13:03 General: See triage assessment. hb Vital Signs: 13:02 BP 146 / 90; Pulse 103; Resp 18; Temp 97.7; Pulse Ox 100% on R/A; Weight 81.65 kg; hb Height 5 ft. 5 in. ; Pain 10/10; 13:02 Body Mass Index 29.95 (81.65 kg, 165.1 cm) hb 13:02 Pain Scale: Adult hb ED Course: 13:00 Patient arrived in ED. mr 13:02 Wanda Payne FNP is [facility]. [facility] 13:02 Chad Pompa MD is Attending Physician. [facility] 13:03 Triage completed. 13:03 Arm band placed on. Administered Medications: No medications were administered Outcome: 13:07 Discharge ordered by . [facility] Signatures: Selena Cagle Heather, RN RN Wanda Payne FNP FNP [facility]
[2022-08-07] MEDS ORDERED: KETOROLAC 30 MG/ML INJ ONE (13:17)
[2022-08-07 13:26] VITALS: BP 146/90; TEMP 97.7; O2SAT 100
== END 2022-08-07 13:15 | disposition home or self-care (01) ==
LOC: ER 12:58
DX: S02.5XXA Fracture of tooth (traumatic), initial encounter for closed fracture (principal); K04.7 Periapical abscess without sinus; F17.210 Nicotine dependence, cigarettes, uncomplicated; Z88.5 Allergy status to narcotic agent
CPT/HCPCS: 96372; 99283

== ENCOUNTER 2023-01-15 04:49 | Inpatient (IN) | payer SELFPAY ==
--- OUTSIDE RECORDS SUMMARY | 2023-01-15 04:52 | XMS REPORT | Continuity of Care Document ---
:1985 Author Organization [facility] t Address [address] [facility]. [address] [place] [address] Care Team Providers Name Role Phone Roseanne Lambert Attending Clinician Unavailable Physician, No Primary or Family Admitting Clinician Unavaila [facility] Payers Payer Name Policy Type Policy Number Effective Date Expiration Date S ource Problems This patient has no known problems. Allergies, Adverse Reactions, Alerts Allergy Allergy Status Severity Reaction(s) Onset Inactive Treating Comm ents Source Name Type Date Date Clinician No Known DA Active U [facility] 02-17 [facility] 00:00: [place] [address] [place] [address] No Known DA Active U [facility] 6-30 [facility] 00:00: [address] Medications This patient has no known medications. Procedures This patient has no known procedures. Encounters Start End Encounter Admission Attending Care Care Encounter Source Date/Time Date/Time Type Type Clinicians Facility Department ID 2021-02-17 2021-02-18 Inpatient EM KATRIN Lambert [facility] [id number] [facility] 19:59:00 02:03:00 Roseanne 72 [facility] 2021-02-17 2021-02-17 Outpatient SHIRLENE Lambert LABYasmani [id number] [facility] 23:35:00 23:35:00 Roseanne 56 [facility] Results Test Description Test Time Test Comments [...] NONE A Urine Source? Clean CatchUR HCG [id number] 23:17:00 Test Item Value Reference Range Interpretation Comments UR HCG QUAL (test NEGATIVE This HCGQL test is NOT code = HCGQLU) applicable fo r MALE patients.Check with nurse about probable order error.If Tumor Marker Test needed, nu rse should order test "HCG TU"(Test #[id number])---- - - XR CHEST 1 [id number] 22:34:00 [facility]Name: HANNY MON : 1985 Sex: F Name: HANNY MON [facility] : 1985 Age/S:36 /F [address] [facility] Unit#:[id number] Loc: [place] [address] Phys: Roseanne Lambert DO Dis Date: PHONE #: [phone] Status: PRE ER FAX #: [phone] Exam Date: 02/17/2021 Reason: CHEST PAIN EXAMS: CPT CODE: [id number] XR CHEST 1 V 84210 Examination: One view chest x-ray Location c ode: H60 Comparison: None Discussion: Clinical history is remarkable for chest pain. Heart is normalin size. Lungs are clear of consolidating infiltrates. No masses, nodules or effusions identified. Impression: 1. Normal one view chest x- ray. at 2234 Reported and signed by: Bharathi Terry M.D. CC: Roseanne Lambert DO Technologist: ALIVIA FELDMAN RT(R),RDMS,CT Trnscrpt Data: 02/17/2021 (223) [email or web address] Orig Print D/T: S: 02/17/2021 (3040) PAGE 1 Signed ReportBASIC METABOLIC PANEL 2021-02-17 22:30:00 Test [...] >3 months. [Automated mess age] The system [employer] generated this result transmitted ref erence range: >=60. Th e reference range was not used to int erpret this result as normal/abnormal . CREATININE (test code 0.78 mg/dL 0.55-1.3 N = CREAT) BUN/CREATININE RATIO 14.1 10-20 N (test code = BUN/CREA) CALCIUM (test code = 9.4 mg/dL 8.4-10.2 N CA) [id number] 22:30:00 Test Item Value Reference Range Interpretation Comments TROPONIN-I (test code = TROPI) <0.015 ng/mL 0.00-0.056 N CBC W/O [id number] 22:08:00 Test Item Value Reference Range Interpretation [...] 6.7-11.0 N = MPV) COVID 19 INHOUSE [id number] 21:25:00 Test Item Value Reference Range Interpretation Comments COVID 19 INHOUSE AG (test code = POSITIVE NEGATIVE [id number]) Notes Date/Time Note Provider Source 2021-02-18 00:16:00-00:00 [facility] ([facility]) EMERGENCY PROVIDER REPORT REPORT#:[id number] REPORT STATUS: Signed DATE:02/18/21 TIME: 001 PATIENT: HANNY MON UNIT #: [id number] ROOM/BED: AGE: 36 SEX: F PCP PHYS: No Primary or Family Ph ysician SERVICE AUTHOR: Roseanne Lambert * ALL edits or amendments must be made on the [employer] document * HPI-General Illness General Initial Greet Date/Time 02/17/212004 Presentation Chief Complaint Anxiety Free Text HPI Notes Free Text HPI Notes The patient is a 36-year-old female with a past medical history significant for anxiety who is presenting with palpitations, ariella st pain, nausea, vomiting, dysuria and abdominal pain. She reports that she is under a tremendous amount of stress because her recently t ested positive for Covid and she found out her father has cancer. Review of Systems ROS Statements All systems rev neg except as marked. Past Medical History - Adult Stated Complaint "IM HAVING AN ANXIETY ATTACK" Allergies Coded Allergies: No Known Allergies (02/17/21) Physical Exam Vital Signs Vital Signs First Documented: Result Date Time Pulse Ox 100 02/17 2047 B/P 132/88 02/17 2047 B/P Mean 102 02/17 2047 O2 Delivery Room air 02/17 2047 Temp 36.7 02/17 2047 Pulse 91 02/17 2047 Resp 02/17 Last Documented: Result Date Time Pulse Ox 99 02/18 203 B/P 113/70 02/18 203 B/P Mean 84 02/18 203 O2 Delivery Room air 02/18 203 Temp 36.8 02/18 203 Pulse 88 09/28 0203 Resp 16 09/28 0203 Review of Vital Signs Reviewed Free Text PE Notes Free Text PE Notes Focused PE General/Const General/Const Awake, Alert, No acute distress, Well appearing MS Head Head Atraumatic, Normocephalic Eyes Eyes Atraumatic, EOMI, No nystagmus Ears/Nose/Throat Ears/Nose/Throat Atraumatic, Airway patent, Muc ous membranes moist, Pharynx NL Resp/Chest Respiratory/Chest Atraumatic, Breath sounds NL, Breath sounds = bilat, No respiratory distress, No rales Cardiovascular Cardiovascular Heart rate NL, Regular rhythm, H eart sounds NL, No gallop, No murmurs Abdomen/GI Abdomen/GI Atraumatic, Soft, Non-tender, McBurn ey's non-tender MS Back Back Atraumatic, Inspection NL Skin Skin Atraumatic, Color NL, No rash, Warm, Dry Neurologic Neurologic Oriented X3, Speech NL, No motor def icits, No sensory deficits Interpretation Diagnostics Lab Results Interpretation Results Laboratory Tests 02/17/214: [Embedded Image Not Available] Laboratory Tests: 02/17 02/17 02/17 2305 2305 2144 Chemistry Sodium (136 - 145 mmol/L) 138 Potassium (3.5 - 5.1 mmol/L) 3.7 Chloride (101 - 109 mmol/L) 104 Carbon Dioxide (21 - 32 mmol/L) 19.5 L Anion Gap (10 - 20 mmol/L) 18 BUN (3 - 21 mg/dL) 11 Creatinine (0.55 - 1.3 mg/dL) 0.78 Glomerular Filtr Rate (>=60 mL/min) > 60 BUN/Creatinine Ratio (10 - 20) 14.1 Glucose (74 - 106 mg/dL) 121 H Calcium (8.4 - 10.2 mg/dL) 9.4 Troponin I (0.00 - 0.056 ng/mL) <0.015 Hematology WBC (4.5 - 12.5 K/mm3) 9.6 RBC (3.7 - 5.2 mill/mm3) 5.65 H Hgb (11.5 - 15.5 gram/dL) 11.9 Hct (36.0 - 46.0 %) 36.9 MCV (80 - 98 fL) 65.3 L MCH (27.0 - 33.0 picogram) 21.1 L MCHC (33.0 - 36.0 gram/dL) 32.2 L RDW (11.6 - 16.2 %) 15.9 RDW Std Deviation (37.0 - 51.0 fL) 35.6 L Plt Count (150 - 450 K/mm3) 409 MPV (6.7 - 11.0 fL) 9.1 Urines Urine Color (YELLOW) YELLOW Urine Appearance (CLEAR) HAZY H Urine pH (5.0 - 8.0) 6.0 Ur Specific [place] (1.001 - 1.035) 1.020 Urine Protein (Neg - 15 mg/dL) 100 (2+) H Urine Glucose (UA) (NEGATIVE mg/dL) norm Urine Ketones (NEGATIVE mg/dL) 150 (4+) H Urine Blood (NEGATIVE Kenneth/uL) 25 (1+) H Urine Nitrite (NEGATIVE) POSITIVE Urine Bilirubin (NEGATIVE mg/dL) NEGATIVE Urine Urobilinogen (0.0 - 0.2 mg/dL) 1 H Ur Leukocyte Esterase (NEGATIVE uL) 500 Cary/uL (3+) H Urine RBC (0 - 5 per HPF) 3-5 Urine WBC (0 - 5 per HPF) 20-30 H Ur Epithelial Cells (Few per HPF) Few (2-5/hpf) Urine Bacteria (NONE per HPF) MANY H Urine HCG, Qual NEGATIVE 02/17 2100 Serology SARS-CoV-2 Ag (Rapid) (NEGATIVE) POSITIVE Microbiology: Date/Time Procedure - Status Source Growth 02/17 2305 Urine Culture - RECD URINE Recent Impressions: RADIOLOGY - XR CHEST 1 V 02/17 2230 Report Impression - Status: SIGNED Entered: 02/17/20212236 Impression: 1. Normal one view chest x-ray. Impression By: CristalVRAlva Terry M.D. ECG #1 Interpretation Text/Dict Note Sinus rhythm with a heart rate of 88. Normal int ervals and no STEMI. ECG Documented in MUSE Yes Date 02/17/21 Time 2136 Interpreted by ED physician VLAD ECG Interpretation Normal rate, Normal sinus rhythm, No acute ischemic changes, No STEMI Rate 88 Re-Evaluation MDM Re-Evaluation/Progress #1 Text/Dict Note The patient tested positive for Covid in the emergency department and she has a urinary tract infection. She received a prescrip tion for antibiotics, Zofran and Xanax for her anxiety. Return cautions were discussed. ED Course Medication(s) Ordered Medication(s) Ordered: Anti-Infective Agents Sig/Kevin Start time Last Medication Dose Route Stop Time Status Admin Ceftriaxone Sodium 1,000 MG ONCE ONE 02/18 0100 DC 02/18 Sodium Chloride 10 ML IV 02/18 0102 0118 Electrolytic, Caloric, And Griselda Sig/Kevin Start time Last Medication Dose Route Stop Time Status Admin Sodium Chloride 1,000 ML X1ED STA 02/18 0026 DC 02/18 IV 02/18 0125 0045 Gastrointestinal Drugs Sig/Kevin Start time Last Medication Dose Route Stop Time Status Admin Metoclopramide HCl 10 MG ONCE ONE 02/18 0030 DC 02/18 IV 02/18 0031 0045 Ondansetron Base 4 MG ONCE ONE 02/17 2100 DC PO 02/17 Patient Discharge Departure Vital Signs/Condition Vital Signs First Documented: Result Date Time Pulse Ox 100 02/17 204 B/P 132/88 02/17 2047 B/P Mean 102 02/17 2047 O2 Delivery Room air 02/17 2047 Temp 36.7 02/17 204 Pulse 91 02/17 204 Resp 16 02/17 2047 Last Documented: Result Date Time Pulse Ox 99 02/18 0203 B/P 113/70 02/18 0203 B/P Mean 84 02/18 0203 O2 Delivery Room air 02/18 0203 Temp 36.8 02/18 0203 Pulse 88 02/18 0203 Resp 16 02/18 0203 All vital signs available at the time of this en try have been reviewed. Clinical Impression Clinical Impression Primary Impression: Anxiety Secondary Impressions: Coronavirus infection, CO VID, UTI (urinary tract infection) Disposition Decision Discharge )( Discharged to Home Yes )( Time 0017 )( Date 02/18/21 Discharge/Care Plan (Auto) Prescriptions Current Visit Scripts NITROFURANTOIN/NITROFURAN MAC (MACROBID) 100 MG PO BID 7 Days #14 CAPS Until finished. Take with food. ONDANSETRON (ZOFRAN) 4 MG PO Q6H PRN PRN NAUSEA/ VOMITING 3 Days #15 TABS ALPRAZolam (XANAX) 0.5 MG PO TID 3 Days #15 TABS at 0411 RPT #:[id number] END OF REPORT
[2023-01-15 05:51] LABS: Absolute Lymphocytes (CBC) 1.3 K/uL (0.7-4.9); Hematocrit 34.2 % (36.0-45.0); Lymphocytes % 7.3 % (15.3-44.8); MPV 7.2 fL (7.6-11.3); Platelets 429 thou/uL (152-406); RBC Red Blood Cell Count 5.34 M/uL (3.86-4.86)
[2023-01-15 05:54] LABS: Specific Gravity 1.013 (1.005-1.030)
[2023-01-15] MEDS ORDERED: KETOROLAC 30 MG/ML INJ ONE (05:55)
[2023-01-15] MEDS ORDERED: ONDANSETRON 4 MG/2 ML VIAL ONE (05:55)
[2023-01-15] MEDS ORDERED: NA CHLORIDE 0.9% 1,000 ML ONE ×3 (05:55→13:25)
[2023-01-15 06:00] LABS: Specific Gravity 1.013 (1.005-1.030); Urine Bacteria <20 /HPF (<20); Urine Bilirubin NEGATIVE (Negative); Urine Blood Negative (Negative); Urine Clarity Extremely Turbid (Clear); Urine Color Yellow (Yellow); Urine Glucose NEGATIVE (Negative); Urine Mucus 1+ /HPF (None Seen); Urine Protein TRACE (Negative); Urine RBC <5 /HPF (None Seen); Urine Urobilinogen Normal (Normal); Urine pH 6.5 (5.0-7.0)
[2023-01-15] MEDS ORDERED: FENTANYL CITR 100 MCG/2 ML ONE ×2 (06:09→11:37)
[2023-01-15 06:10] LABS: Albumin 3.5 g/dL (3.4-5.0); Bilirubin Total 1.1 mg/dL (0.2-1.0); Potassium 2.9 mEq/L (3.5-5.1); Protein, Total 7.8 g/dL (6.4-8.2)
[2023-01-15 06:43] LABS: Blood Morphology Comment NOTED (NOT SEEN); Hypochromasia 1+; Platelet Estimate INCR; Polychromasia 1+; White Blood Cell Scan OK (OK)
--- NOTE | 2023-01-15 07:33 | RAD REPORT ---
EXAM DESCRIPTION: CTAbdomen Pelvis W Contrast - 01/15/2023 6:51 am CLINICAL HISTORY: Abdominal pain. ABD PAIN COMPARISON: Abdomen Pelvis W Contrast dated 01/04/2019; Abdomen Pelvis W Contrast dated 11/30/2018 ; Abdomen Pelvis W Contrast dated 06/17/2018; Abdomen Pelvis W Contrast dated 05/20/2018 TECHNIQUE: Biphasic CT imaging of the abdomen and pelvis was performed with 100 ml non-ionic IV cont rast. All CT scans are performed using dose optimization technique as appropriate and may include automated exposure control or mA/KV adjustment according to patient size. FINDINGS: The lung bases are clear. The liver, spleen, pancreas, adrenal glands and right kidney are within normal limits. Subtle areas o f diminished density in the cortex of left kidney and and mild left perinephric fat stranding is seen which may indicate pyelonephritis. No bowel obstruction, free air, intra-abdominal free fluid or abscess. Small fat containing ventral u mbilical hernia. The appendix is normal. No evidence of significant lymphadenopathy. 4.5 cm left ovarian cystic lesion noted with mild pelvic free fluid. No suspicious bony findings. IMPRESSION: 4.5 cm left ovarian cyst with mild pelvic free fluid. Perinephric fat stranding involving left kidney with areas of mild diminished cortical density could indicate pyelonephritis. Advise correlation with urinalysis.
[2023-01-15] MEDS ORDERED: NA CHLORIDE 0.9% 100 ML ONE (08:18)
[2023-01-15] MEDS ORDERED: PIPERACIL/TAZO 3.375 GM VIAL IV ONE (08:18)
[2023-01-15] MEDS ORDERED: KCL 20 MEQ/100 mL IVPB 200 ML IV ONE (08:18)
--- NOTE | 2023-01-15 08:36 | RAD REPORT ---
EXAM DESCRIPTION: US - Transvaginal Study Probe - 01/15/2023 8:02 am CLINICAL HISTORY: pelvic pain Pelvic pain. COMPARISON: No comparisons FINDINGS: The uterus is normal in size, shape and echotexture. The uterus measures 6.7 x 4.2 x 3.6 c m. 19 x 19 mm hypoechoic fibroid is seen along the lower uterine segment of the uterus for is a right . The endometrial stripe measures 9 mm, normal. Both ovaries are normal in size, shape and echotexture. The right ovary measures 2.9 x 2.6 x 2.2 cm. The left ovary measures 5.2 x 3.6 x 2.9 cm. Ovarian hemorrhagic cyst on the left measuring 3.8 x 2. 5 cm. No adnexal masses. Normal Doppler blood flow was demonstrated to both ovaries. Xbrw-co-iynpozil pelvic free fluid. IMPRESSION: 3.8 cm hemorrhagic left ovarian cyst. 19 mm suspected fibroid lower uterine segment. [id number] pelvic free fluid.
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
[2023-01-15] MEDS ORDERED: ACETAMINOPHEN 500 MG TAB PO PRN (12:14)
[2023-01-15 12:17] LABS: Absolute Lymphocytes (CBC) 1.8 K/uL (0.7-4.9); Hematocrit 28.3 % (36.0-45.0); Lymphocytes % 14.2 % (15.3-44.8); MCV 64.9 fL (80-100); MPV 7.4 fL (7.6-11.3); Platelets 349 thou/uL (152-406); RBC Red Blood Cell Count 4.36 M/uL (3.86-4.86)
[2023-01-15] MEDS: NA CHLORIDE 0.9% 1,000 ML IV SCH (13:00)
[2023-01-15] MEDS ORDERED: NA CHLORIDE 0.9% 1,000 ML IV SCH (13:00)
[2023-01-15 13:29] LABS: Blood Morphology Comment NOTED (NOT SEEN); Hypochromasia 1+; Platelet Estimate ADEQ; White Blood Cell Scan OK (OK)
[2023-01-15 14:09] LABS: Hematocrit 31.8 % (36.0-45.0)
[2023-01-15] MEDS: MORPHINE 2 MG/ML SYR IV PRN ×2 (15:50→20:03)
[2023-01-15] MEDS: ONDANSETRON 4 MG/2 ML VIAL IV PRN (15:50)
[2023-01-15 16:02] VITALS: BMI 29.8
[2023-01-15] MEDS ORDERED: PROMETHAZINE 25 MG TABLET PO ONE (17:30)
[2023-01-15 22:38] VITALS: O2SAT 99
[2023-01-16] MEDS: NA CHLORIDE 0.9% 1,000 ML IV SCH (00:06)
[2023-01-16] MEDS: ONDANSETRON 4 MG/2 ML VIAL IV PRN (00:07)
[2023-01-16] MEDS: MORPHINE 2 MG/ML SYR IV PRN ×6 (00:07→14:08)
[2023-01-16] MEDS ORDERED: HYDROCODONE/APAP 5/325 MG TAB PO PRN ×2 (00:22→00:32)
[2023-01-16 03:53] LABS: Absolute Lymphocytes (CBC) 2.1 K/uL (0.7-4.9); Hematocrit 29.3 % (36.0-45.0); Lymphocytes % 17.3 % (15.3-44.8); MCV 64.4 fL (80-100); MPV 7.5 fL (7.6-11.3); Platelets 331 thou/uL (152-406); RBC Red Blood Cell Count 4.56 M/uL (3.86-4.86)
[2023-01-16 03:57] LABS: Protime INR 1.09
[2023-01-16 04:11] LABS: Albumin 2.8 g/dL (3.4-5.0); Bilirubin Total 0.8 mg/dL (0.2-1.0); Potassium 3.1 mEq/L (3.5-5.1); Protein, Total 6.5 g/dL (6.4-8.2)
[2023-01-16] MEDS ORDERED: dexAMETHasone 4 MG/ML VIAL IV ONE (09:00)
[2023-01-16 13:39] VITALS: BP 150/80; TEMP 98
--- NOTE | 2023-01-16 13:47 | P.DS ---
Discharge Date: 01/16/23 Disposition: ROUTINE DISCHARGE Discharge Condition: GOOD Reason for Admission: Abdominal pain - Problems (1) Abdominal pain Current Visit: Yes Status: Acute Qualifiers: Abdominal location: generalized Qualified Code(s): R10.84 - Generalized abdominal pain (2) Hemorrhagic cyst of ovary Current Visit: Yes Status: Acute (3) Leukocytosis Onset Date: 07/16/14 Current Visit: No Status: Acute (4) Urinary tract infectious disease Onset Date: 07/18/14 Current Visit: No Status: Acute Brief History of Present Illness: Patient is a 37-year-old female who presents to the hospital with abdominal pain. Patient was seen in the emergency room and thought she may have pyelonephritis. On further review of her record she does have a ruptured hemorrhagic cyst. Her urine analysis is not really impressive. She has 5-10 bacteria and less than 20 white blood cells. This is not normally indicative of a severe pyelonephritis case. Patient does have some mild stranding on CT imaging. But her most impressive finding is a hemorrhagic cyst that is ruptured. Hemoglobin is stable and blood pressure is stable. Most likely cause of her pain is a ruptured hemorrhagic cyst. I did talk to the patient and her blood pressure is stable and we will repeat her blood count. As long as her blood count comes back stable we will get her admitted to our facility. If she is dropping her blood count is significantly she may need to be transferred to a facility that has gynecology ability. We will have any [employer] on-call. Patient at this time will be admitted with IV fluids and IV antibiotics and will do serial H&H. If her hemoglobin remained stable she will be admitted to our facility and we will have her follow-up as an outpatient with gynecology. Hospital Course: Patient has done well during the hospital stay. She still having some pain but she states it is better controlled. She has an ovarian cyst that was ruptured. It appears to be a hemorrhagic ovarian cyst. There is also concern for pyelonephritis. Patient will continue with oral antibiotics at discharge. At this time, patient clinically doing well patient is stable for discharge home with outpatient follow-up. Vital Signs/Physical Exam: Temp Pulse Resp BP Pulse Ox 98 F 88 20 150/80 H 95 01/16/23 13:38 01/16/23 13:38 01/16/23 13:38 01/16/23 13:38 01/16/23 13:38 General: Alert, In no apparent distress, Oriented x3 Laboratory Data at Discharge: WBC 12.00 thou/uL (4.3-10.9) H 01/16/23 03:12 Hgb 9.6 g/dL (12.0-15.0) L 01/16/23 03:12 Hct 29.3 % (36.0-45.0) L 01/16/23 03:12 Plt Count 331 thou/uL (152-406) 01/16/23 03:12 PT 12.0 SECONDS (9.5-12.5) 01/16/23 03:12 INR 1.09 01/16/23 03:12 APTT 29.2 SECONDS (24.3-36.9) 01/16/23 03:12 Sodium 136 mEq/L (136-145) 01/16/23 03:12 Potassium 3.1 mEq/L (3.5-5.1) L 01/16/23 03:12 BUN 6 mg/dL (7-18) L 01/16/23 03:12 Creatinine 0.56 mg/dL (0.55-1.02) 01/16/23 03:12 Glucose 80 mg/dL (74-106) 01/16/23 03:12 Total Bilirubin 0.8 mg/dL (0.2-1.0) 01/16/23 03:12 AST 26 U/L (15-37) 01/16/23 03:12 ALT 50 U/L (13-56) 01/16/23 03:12 Alkaline Phosphatase 153 U/L (45-117) H 01/16/23 03:12 Lipase 23 U/L (13-75) 01/15/23 05:40 Home Medications: Cefdinir [Cefdinir*] 300 mg PO BID #14 cap 01/16/23 predniSONE [Deltasone] 20 mg PO DAILY #5 tab 01/16/23 traMADol HCL [Ultram*] 50 mg PO Q6H PRN #20 tab 01/16/23 New Medications: Cefdinir [Cefdinir*] 300 mg PO BID #14 cap predniSONE [Deltasone] 20 mg PO DAILY #5 tab traMADol HCL [Ultram*] 50 mg PO Q6H PRN #20 tab PRN Reason: Pain Physician Discharge Instructions: -DC IV and DC home -Follow-up with PCP in 1 to 2 weeks -Follow-up with GYNECOLOGY in 1 to 2 weeks -Please call Dr. Huffman at [phone] if any questions regarding hospital stay -Please call nursing station at [phone] if any nursing or medication questions -Return to the emergency room if symptoms worsen Diet: Regular Activity: Fall precautions Followup: Alondra Cullen MD [ACTIVE - CAN ADMIT] - Time spent managing pt's care (in minutes): 35
== END 2023-01-16 14:29 | disposition home or self-care (01) | DRG 760 ==
LOC: ER 04:49 → ERHOLD 12:14 → 2ND 15:01
PROVIDERS: ADMIT Hospitalist; ATTEND Hospitalist
DX: N83.202 Unspecified ovarian cyst, left side (principal); N12 Tubulo-interstitial nephritis, not specified as acute or chronic; E87.6 Hypokalemia; K21.9 Gastro-esophageal reflux disease without esophagitis; D72.829 Elevated white blood cell count, unspecified; F17.210 Nicotine dependence, cigarettes, uncomplicated; Z88.5 Allergy status to narcotic agent; Z63.5 Disruption of family by separation and divorce; Z79.52 Long term (current) use of systemic steroids; Z79.899 Other long term (current) drug therapy
CPT/HCPCS: 36415; 74177; 76830; 80053; 81001; 81025; 83605; 83690; 85014; 85018; 85025; 85610; 85730; 87040; 87077; 87086; 87088; 87186; 99285; J1100; J2270; J2405; J2543; J3010; J3480; J7030; Q0169; Q9967